=== PATIENT | male | born 1955 | race Caucasian/White ===

== ENCOUNTER 2018-08-22 21:47 | Inpatient (IN) | payer MEDICAID, MEDICARE ==
[2018-08-22 21:48] VITALS: BMI 20.1
[2018-08-22 22:55] LABS: BASO # 0.04 K/mm3 (0.0-2.0); BASO % 0.3 % (0.0-3.0); EOS # 0.5 (0.0-0.7); EOS % 3.9 % (1.5-5.0); HEMOGLOBIN 11.7 g/dL (14.0-18.0); LYMPH # 2.1 (1.2-3.4); LYMPH % 17.7 % (22.0-35.0); MEAN CELL VOLUME 85.1 fl (80.0-105.0); MEAN CORPUSCULAR HEMOGLOBIN 30.2 pg (25.0-35.0); MEAN CORPUSCULAR HGB CONC 35.5 g/dl (31.0-37.0); MEAN PLATELET VOLUME 10.3 fl (7.0-11.0); MONO # 1.7 (0.1-0.6); MONO % 14.7 % (1.0-6.0); RBC 3.88 10^6/uL (3.5-6.1); RED CELL DISTRIBUTION WIDTH 18.6 % (11.5-14.5); WHITE BLOOD COUNT 11.7 10^3/uL (4.5-11.0)
[2018-08-22 22:58] LABS: BLOOD UREA NITROGEN 14 mg/dL (7-21); GFR NON-AFRICAN AMERICAN > 60
[2018-08-22 23:01] LABS: INR 1.2; PARTIAL THROMBOPLASTIN TIME 35.2 Seconds (26.9-38.3); PROTHROMBIN TIME 13.3 SECONDS (9.4-12.5)
[2018-08-22 23:02] LABS: ALB/GLOB RATIO 0.9 (1.1-1.8); ALBUMIN 4.4 g/dL (3.0-4.8); ALT/SGPT 14 U/L (7-56); AST/SGOT 58 U/L (17-59)
--- NOTE | 2018-08-22 23:06 | ED PDOC ---
Arrival/HPI <Matthew Rosales - Last Filed: 08/22/18 23:44> - General Historian: Patient - History of Present Illness Narrative History of Present Illness (Text): 08/22/18 23:02 63-year-old male presents today with left-sided chest pain that started at 6 PM. Patient states he was feeling fine throughout the day and suddenly developed a sharp stabbing pain in the left side of the ribs. Patient states he took 3 aspirins and Tylenol with improvement in the pain. Patient states when the pain started it was associated with shortness of breath. Patient denies fevers or chills. No abdominal pain. No nausea vomiting diarrhea constipation. No dizziness or weakness. No trauma or injury. No other complaints <Mayda Crow - Last Filed: 08/23/18 00:25> - General Chief Complaint: Chest Pain Time Seen by Provider: 08/22/18 21:54 Past Medical History - Provider Review Nursing Documentation Reviewed: Yes - Travel History Have you recently traveled outside [place] w/in the past 3 mons?: No - Infectious Disease Hx of Infectious Diseases: None - Cardiac Hx Cardiac Disorders: No - Pulmonary Hx Respiratory Disorders: No - Neurological Hx Neurological Disorder: No Hx Alzheimer's Disease: No - HEENT Hx HEENT Disorder: Yes Hx Glaucoma: Yes - Renal Hx Renal Disorder: No - Endocrine/Metabolic Hx Endocrine Disorders: No - Hematological/Oncological Hx Blood Disorders: Yes Hx Anemia: Yes - Integumentary Hx Dermatological Disorder: No - Musculoskeletal/Rheumatological Hx Musculoskeletal Disorders: Yes Hx Arthritis: Yes - Gastrointestinal Hx Gastrointestinal Disorders: Yes (UMBILICAL HERNIA) - Genitourinary/Gynecological Hx Genitourinary Disorders: No - Psychiatric Hx Psychophysiologic Disorder: No Hx Substance Use: No - Surgical History Hx Eye Surgery: Yes (GLAUCOMA- LASER SX) Hx Orthopedic Surgery: Yes (left leg) Other/Comment: UMBILICAL HERNIA REPAIR - Anesthesia Hx Anesthesia: Yes Hx Anesthesia Reactions: No Hx Malignant Hyperthermia: No <Mayda Crow - Last Filed: 08/23/18 00:25> Family/Social History - Physician Review Nursing Documentation Reviewed: Yes Family/Social History: Unknown Family HX Smoking Status: Never Smoked Hx Alcohol Use: No Hx Substance Use: No <Mayda Crow - Last Filed: 08/23/18 00:25> Allergies/Home Meds <Matthew Rosales - Last Filed: 08/22/18 23:44> <Mayda Crow - Last Filed: 08/23/18 00:25> Allergies/Adverse Reactions: Allergies No Known Allergies Allergy (Verified 03/24/15 12:10) Home Medications: Home Meds Medication Instructions Recorded Confirmed Aspirin 81 mg PO DAILY 03/24/15 03/16/17 Folic Acid 1 mg PO DAILY 03/24/15 03/16/17 Review of Systems - Review of Systems Constitutional: absent: Fatigue, Fevers Respiratory: SOB. absent: Cough Cardiovascular: Chest Pain. absent: Palpitations Gastrointestinal: absent: Abdominal Pain, Constipation, Diarrhea, Nausea, Vomiting Genitourinary Male: absent: Dysuria, Frequency Musculoskeletal: absent: Arthralgias, Back Pain, Neck Pain Skin: absent: Rash, Pruritis Neurological: absent: Headache, Dizziness Psychiatric: absent: Anxiety, Depression, Suicidal Ideation <Cecilio Crowina T - Last Filed: 08/23/18 00:25> Physical Exam Vital Signs Temp Pulse Resp BP Pulse Ox 08/22/18 22:34 79 18 126/89 97 08/22/18 21:50 99 F 83 17 126/89 96 <Matthew Rosales - Last Filed: 08/22/18 23:44> Vital Signs Reviewed: Yes Vital Signs Temp Pulse Resp BP Pulse Ox 08/22/18 22:34 79 18 126/89 97 08/22/18 21:50 99 F 83 17 126/89 96 Temperature: Afebrile Blood Pressure: Normal Pulse: Regular Respiratory Rate: Normal Appearance: Positive for: Well-Appearing, Non-Toxic, Comfortable Pain Distress: None Mental Status: Positive for: Alert and Oriented X 3 - Systems Exam Head: Present: Atraumatic Mouth: Present: Moist Mucous Membranes Neck: Present: Normal Range of Motion, Trachea Midline Respiratory/Chest: Present: Clear to Auscultation, Good Air Exchange. No: Respiratory Distress, Accessory Muscle Use, Tender to Palpation Cardiovascular: Present: Regular Rate and Rhythm, Normal S1, S2. No: Murmurs Abdomen: No: Tenderness, Distention, Rebound, Guarding Back: Present: Normal Inspection Upper Extremity: Present: Normal Inspection Lower Extremity: Present: Normal Inspection. No: Edema Neurological: Present: GCS=15 Skin: Present: Warm, Dry, Normal Color. No: Rashes Psychiatric: Present: Alert, Oriented x 3 <AllisondaMayda T - Last Filed: 08/23/18 00:25> Medical Decision Making - Lab Interpretations Lab Results: PT 13.3 SECONDS (9.4-12.5) H 08/22/18 22:30 INR 1.20 08/22/18 22:30 APTT 35.2 Seconds (26.9-38.3) 08/22/18 22:30 Troponin I < 0.01 ng/mL 08/22/18 22:30 NT-Pro-B Natriuret Pep 95.8 pg/mL (0-450) 08/22/18 22:30 Total Bilirubin 3.4 mg/dL (0.2-1.3) H 08/22/18 22:30 AST 58 U/L (17-59) 08/22/18 22:30 ALT 14 U/L (7-56) 08/22/18 22:30 Alkaline Phosphatase 81 U/L (38-126) 08/22/18 22:30 Total Protein 9.1 g/dL (5.8-8.3) H 08/22/18 22:30 Albumin 4.4 g/dL (3.0-4.8) 08/22/18 22:30 Globulin 4.7 gm/dL 08/22/18 22:30 Albumin/Globulin Ratio 0.9 (1.1-1.8) L 08/22/18 22:30 - RAD Interpretation Radiology Orders: 08/22/18 22:14 CHEST PORTABLE [RAD] Stat <Matthew Rosales - Last Filed: 08/22/18 23:44> ED Course and Treatment: 08/22/18 23:06 63-year-old male with left-sided chest pain started at 6 PM Pt with chest pain ; vitals stable. cbc; wnl cmp; wnl trop: wnl BNP wnl ekg; normal sinus rhythm at 83 bpm normal axis no ST elevations QTC 413 cxr: wnl pt took 3 asa at home. pt reassessment; pt resting comfortably; no distress. vitals stable. all results discussed with patient and family in depth. case discussed with Dr. Alvares will Admit observational status to Tele for chest pain r/o acs. she is requesting serial troponins. 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 DIVINE has examined the patient and agrees with the treatment plan. <Matthew Rosales - Last Filed: 08/22/18 23:44> Disposition/Present on Arrival <Matthew Rosales - Last Filed: 08/22/18 23:44> - Present on Arrival Any Indicators Present on Arrival: No History of DVT/PE: No History of Uncontrolled Diabetes: No Urinary Catheter: No History of Decub. Ulcer: No History Surgical Site Infection Following: None - Disposition Have Diagnosis and Disposition been Completed?: Yes Disposition Time: 00:00 Patient Plan: Observation <Mayda Crow - Last Filed: 08/23/18 00:25> - Disposition Diagnosis: Chest pain Disposition: HOSPITALIZED Patient Problems: Current Active Problems Problem Status Onset Chest pain Acute Condition: FAIR
[2018-08-22 23:08] LABS: B-TYPE NATRIURETIC PEPTIDE 95.8 pg/mL (0-450)
[2018-08-22 23:11] LABS: TROPONIN I < 0.01 ng/mL
[2018-08-23 05:35] LABS: PH,URINE 6.5 (4.7-8.0); URINE BILIRUBIN NEGATIVE (NEGATIVE); URINE BLOOD NEGATIVE (NEGATIVE); URINE GLUCOSE (UA) NEGATIVE (NEGATIVE); URINE LEUKOCYTE ESTERASE NEGATIVE Leu/uL (NEGATIVE); URINE PROTEIN NEGATIVE mg/dL (<30 mg/dL)
[2018-08-23 05:37] LABS: URINE APPEARANCE CLEAR (CLEAR); URINE COLOR YELLOW (YELLOW)
--- NOTE | 2018-08-23 09:45 | RAD ---
Date of service: 08/22/2018 HISTORY: cp COMPARISON: No prior. TECHNIQUE: 1 view obtained. FINDINGS: LUNGS: No active pulmonary disease. PLEURA: No significant pleural effusion identified, no pneumothorax apparent. CARDIOVASCULAR: No aortic atherosclerotic calcification present. Mild aortic tortuosity Normal cardiac size. No pulmonary vascular congestion. OSSEOUS STRUCTURES: No significant abnormalities. VISUALIZED UPPER ABDOMEN: Normal. OTHER FINDINGS: None. IMPRESSION: No active disease.
[2018-08-23 11:21] LABS: HEMOGLOBIN 11.7 g/dL (14.0-18.0)
[2018-08-23 11:35] LABS: TOTAL IRON BINDING CAPACITY 275 ug/dL (261-462)
[2018-08-23 11:37] LABS: TROPONIN I < 0.01 ng/mL
[2018-08-23 11:52] LABS: % IRON SATURATION 12 % (20-55); IRON 33 ug/dL (45-180)
--- NOTE | 2018-08-23 15:14 | CARD ---
APPROVED REPORT Date of service: 08/22/2018 EKG Measurement Heart [id number] [place] [id number] [id number] <Conclusion> Normal sinus rhythm Normal ECG
--- NOTE | 2018-08-23 15:29 | US ---
Date of service: 08/23/2018 HISTORY: r/o gallstones COMPARISON: None. TECHNIQUE: Sonographic evaluation of the abdomen. FINDINGS: LIVER: Measures 13.9 x 10.05 x 18.48 cm. Normal echogenicity of the liver parenchyma. No mass. No intrahepatic bile duct dilatation. GALLBLADDER: Small gallstones COMMON BILE DUCT: Measures 5.7 mm. No stones. No dilatation. PANCREAS: Unremarkable as visualized. No mass. No ductal dilatation. RIGHT KIDNEY: Measures 10.02 x 5.08 x 4.85cm. Normal echogenicity. No calculus, mass, or hydronephrosis. LEFT KIDNEY: Measures 10.75 x 4.52 x 4.69cm. Normal echogenicity. No calculus, mass, or hydronephrosis. SPLEEN: Not visualized AORTA: No aneurysmal dilatation. IVC: Unremarkable. OTHER FINDINGS: None. IMPRESSION: Small gallstones. No evidence of cholecystitis
--- NOTE | 2018-08-23 17:01 | CARD ---
APPROVED REPORT Date of service: 08/23/2018 EXAM: Two-dimensional and M-mode echocardiogram with Doppler and color Doppler. INDICATION Chest Pain 2D DIMENSIONS Left Atrium (2D)3.8 (1.6-4.0cm)IVSd1.2 (0.7-1.1cm) LVDd5.8 (3.9-5.9cm)PWd1.2 (0.7-1.1cm) LVDs4.0 (2.5-4.0cm)FS (%) 31.5 % LVEF (%)58.6 (>50%) M-Mode DIMENSIONS Aortic Root4.00 (2.2-3.7cm)Aortic Cusp Exc.2.40 (1.5-2.0cm) Aortic Valve AoV Peak Aglnjppp996.0cm/Grey Peak GR.8mmHg Mitral Valve MV E Kpnhfbwd79.5cm/sMV A Pqjkghkz80.5cm/sE/A ratio0.8 TDI E/Lateral E'0.0E/Medial E'0.0 Tricuspid Valve TR Peak Dxxbdmjo830mx/sRAP [id number] Peak Gr.24mmHg [id number] LEFT VENTRICLE The left ventricle is normal size. There is mild concentric left ventricular hypertrophy. The left ventricular function is normal. The left ventricular ejection fraction is within the normal range. There is normal LV segmental wall motion. RIGHT VENTRICLE The right ventricle is normal size. The right ventricular systolic function is normal. ATRIA The left atrium size is normal. The right atrium size is normal. The interatrial septum is intact with no evidence for an atrial septal defect. AORTIC VALVE The aortic valve is normal in structure. There is moderate aortic regurgitation. There is no aortic valvular stenosis. MITRAL VALVE The mitral valve is normal in structure. There is no mitral valve regurgitation noted. TRICUSPID VALVE The tricuspid valve is normal in structure. There is mild tricuspid regurgitation. PULMONIC VALVE The pulmonary valve is normal in structure. There is mild pulmonic valvular regurgitation. GREAT VESSELS The aortic root is normal in size. The IVC is normal in size and collapses >50% with inspiration. PERICARDIAL EFFUSION There is no pleural effusion. There is no pericardial effusion. <Conclusion> Normal chamber size. Normal LV size and systolic function. Mild concentric LVH. Moderate aortic insufficiency. Mild tricuspid regurgitation. Mild pulmonic insufficiency.
[2018-08-23 18:08] LABS: FOLATE 17.3 ng/mL
--- NOTE | 2018-08-23 21:33 | HP ---
DATE OF EXAM: 08/23/2018 HISTORY OF PRESENT ILLNESS: This 63-year-old male who was examined at his bedside on the morning of 08/23/2018. He presented to [facility] earlier today with left-sided chest pain. He was shopping last evening at a local grocery store when he experienced sharp stabbing left-sided chest pain. He initially took three aspirin and Tylenol with improvement in pain and also stated at the time of the discomfort he had shortness of breath, the pain lasted approximately 1 hour and he came to [facility] for further evaluation of the above. On questioning this patient, he is on medical disability for a right leg injury that occurred at work years ago. He states he is on no chronic medication, but does have a history of glaucoma, degenerative arthritis, and denied any previous surgery including hernia repair, tonsillectomy or appendectomy. OUTPATIENT MEDICATIONS: Include baby aspirin and folic acid. ALLERGIES: THE PATIENT DENIED ANY ALLERGIES TO MEDICATION. SOCIAL HISTORY: He states he is a nondrinker, nonsmoker, and non IV drug misuser. FAMILY HISTORY: Both parents are alive and well. The patient denies any knowledge of unstable angina in his past and states he has never had an echocardiogram or stress test. REVIEW OF SYSTEMS: CONSTITUTIONAL REVIEW: No fever. No chills. HEAD: No headache. No seizures. EYES: No change in visual acuity. EARS: No hearing loss. THROAT: No swallowing difficulty. NECK: No stiffness. CARDIAC REVIEW: As per HPI. PULMONARY: No cough. No hemoptysis. GASTROINTESTINAL: No hematemesis. No melena. GENITOURINARY: No dysuria. SKIN: No rash. VASCULAR: No claudication. PSYCHOLOGICAL: No anxiety. NEUROLOGICAL: No knowledge of stroke. PHYSICAL EXAMINATION: VITAL SIGNS: He is in a normal sinus rhythm on monitoring specialist. Last temperature 99, respirations 20, pulse 75, and blood pressure 129/63. HEENT: Head: Normocephalic and atraumatic. Eyes: No icterus. Ears: Clear. Throat: Noninjected. NECK: Supple. HEART: Regular S1 and S2. LUNGS: Clear. ABDOMEN: Soft. No rebound. No guarding. No tenderness. EXTREMITIES: No edema. SKIN: Without rash. NEUROLOGICAL: Intact. PSYCHOLOGICAL: Alert. VASCULAR: Legs warm to touch. LABORATORY DATA: White count 11,700, hemoglobin 11.7, hematocrit 33, and platelets 156,000. PT/INR 1.20 and PTT 35.2. Sodium 138, K 4, chloride 106, bicarb 26, BUN 14, creatinine 1.2, random blood sugar 97, magnesium 1.8, and bilirubin 3.4. AST 58, ALT 14, and alk phos 81. Urinalysis 4+ urobilinogen. Serology; influenza A and B negative. Chest x-ray was reviewed, it shows no active pulmonary disease, no infiltrate, no pneumonia, no CHF, and no pneumothorax. EKG reportedly showed normal sinus rhythm with nonspecific ST-T wave changes. IMPRESSION: This is a 63-year-old male with sharp stabbing chest pain, rule out unstable angina, also with comorbidities of mild anemia, elevated bilirubin, rule out gallstones, and rule out atypical chest pain secondary to gallstones. PLAN: My plan at present as discussed with the patient in detail at bedside will be to obtain vitamin B12 levels. A total bilirubin and direct bilirubin level, iron, TIBC, folic acid, and ferritin levels as well as a repeat troponin level. The hemoglobin and hematocrit had been ordered stat as well. He is ordered to have an echocardiogram, a heart healthy diet, Lexiscan stress test, and a gallbladder ultrasound. Based on the above additional diagnostic workup and testing will be entertained. Greater than 75 minutes were spent in the care management, review of ER records, labs, outlying of orders and discussion of this patient with himself and nursing. All questions were answered. Lizzy Alvares MD
--- NOTE | 2018-08-23 23:29 | CP.PCM.PN ---
Subjective - Date & Time of Evaluation Date of Evaluation: 08/23/18 Time of Evaluation: 23:29 - Subjective Subjective: Patient was seen because I was asked to co-sign an order for tylenol which was ordered for temperature of 102.3*F As per nurse his pulse ox was 88% on RA, it went upt 95%-96% when she put him on oxygen at 2L/min by nasal canula. Patient has no complaints now. Denies cough, phlegm, any skin/wound infection, urinary symptoms. Medical record was reviewed. This 63 year old male is admitted with left sided chest pain , r/o unstable angina, leukocytosis, elevated bilirubin level, mild anemia. Has PMH of DJD, glaucoma. Objective - Vital Signs/Intake and Output Vital Signs (last 24 hours): Temp Pulse Resp BP Pulse Ox 97.6 F 93 H 20 121/77 98 08/23/18 17:49 08/23/18 18:00 08/23/18 17:49 08/23/18 17:49 08/23/18 00:08 Intake and Output: 08/23/18 08/24/18 18:59 06:59 Intake Total 660 Output Total 400 Balance 260 - Medications Medications: Current Medications Aspirin (Ecotrin) 81 mg PO DAILY TA Folic Acid (Folic Acid) 1 mg PO DAILY TA - Labs Labs: 08/23/18 11:00 08/22/18 22:30 PT 13.3 SECONDS (9.4-12.5) H 08/22/18 22:30 INR 1.20 08/22/18 22:30 APTT 35.2 Seconds (26.9-38.3) 08/22/18 22:30 - Constitutional Appears: Well, No Acute Distress - Head Exam Head Exam: ATRAUMATIC, NORMAL INSPECTION, NORMOCEPHALIC - Eye Exam Eye Exam: Normal appearance - ENT Exam ENT Exam: Normal External Ear Exam - Neck Exam Neck Exam: Normal Inspection - Respiratory Exam Respiratory Exam: NORMAL BREATHING PATTERN - Cardiovascular Exam Cardiovascular Exam: absent: JVD - GI/Abdominal Exam GI & Abdominal Exam: absent: Distended - Rectal Exam Rectal Exam: Deferred - Exam Additional comments: Deferred. - Extremities Exam Extremities Exam: Normal Inspection - Back Exam Back Exam: NORMAL INSPECTION - Neurological Exam Neurological Exam: Alert, Awake, Oriented x3 - Psychiatric Exam Psychiatric exam: Normal Affect, Normal Mood - Skin Skin Exam: Normal Color Assessment and Plan - Assessment and Plan (Free Text) Assessment: Chest pain. Fever. R/O PNA. Sepsis. Leukocytosis. Anemia. DJD. Hx glaucoma. Plan: Tylenol 650 mg PO Q4H prn Temp > 100.4*F. CBC with Diff. Blood culture x 2 UA.C&S. CXR portable stat----> No definitive infiltrate or any other pathology noted. Sputum for gram stain and C&S. Rocephin 1 gm IV x 1. ID consult at discretion of PMD. Continue present management as per PMD.
[2018-08-24] MEDS ORDERED: cefTRIAXone 1 gm 1 GM/100 ML BAG IVPB STA (00:17)
[2018-08-24 01:24] LABS: BASO # 0.02 K/mm3 (0.0-2.0); BASO % 0.1 % (0.0-3.0); EOS % 0.1 % (1.5-5.0); HEMOGLOBIN 11.6 g/dL (14.0-18.0); LYMPH # 1.1 (1.2-3.4); LYMPH % 7.5 % (22.0-35.0); MEAN CORPUSCULAR HEMOGLOBIN 30.4 pg (25.0-35.0); MEAN CORPUSCULAR HGB CONC 35.8 g/dl (31.0-37.0); MEAN PLATELET VOLUME 10.1 fl (7.0-11.0); MONO # 2.1 (0.1-0.6); MONO % 14.3 % (1.0-6.0); RBC 3.81 10^6/uL (3.5-6.1); RED CELL DISTRIBUTION WIDTH 18.4 % (11.5-14.5); WHITE BLOOD COUNT 14.3 10^3/uL (4.5-11.0)
[2018-08-24 07:36] LABS: ALB/GLOB RATIO 0.9 (1.1-1.8); ALBUMIN 3.7 g/dL (3.0-4.8); ALT/SGPT 16 U/L (7-56); AST/SGOT 46 U/L (17-59); BLOOD UREA NITROGEN 17 mg/dL (7-21); CALCIUM 8.6 mg/dL (8.4-10.5); GFR NON-AFRICAN AMERICAN 56
[2018-08-24 07:41] LABS: BASO # 0.02 K/mm3 (0.0-2.0); BASO % 0.1 % (0.0-3.0); EOS % 0.1 % (1.5-5.0); HEMOGLOBIN 11.3 g/dL (14.0-18.0); LYMPH # 1.2 (1.2-3.4); MEAN CELL VOLUME 84.9 fl (80.0-105.0); MEAN CORPUSCULAR HEMOGLOBIN 30.5 pg (25.0-35.0); MEAN PLATELET VOLUME 9.9 fl (7.0-11.0); MONO % 18.4 % (1.0-6.0); RBC 3.7 10^6/uL (3.5-6.1); RED CELL DISTRIBUTION WIDTH 18.3 % (11.5-14.5); WHITE BLOOD COUNT 16.3 10^3/uL (4.5-11.0)
[2018-08-24 07:46] LABS: TROPONIN I 0.01 ng/mL
--- NOTE | 2018-08-24 08:33 | RAD ---
Date of service: 08/24/2018 HISTORY: fever COMPARISON: 08/22/2018 TECHNIQUE: 1 view obtained. FINDINGS: LUNGS: No active pulmonary disease. PLEURA: No significant pleural effusion identified, no pneumothorax apparent. CARDIOVASCULAR: No aortic atherosclerotic calcification present. Aortic tortuosity Mild cardiomegaly no pulmonary vascular congestion. OSSEOUS STRUCTURES: No significant abnormalities. VISUALIZED UPPER ABDOMEN: Normal. OTHER FINDINGS: None. IMPRESSION: No active disease.
[2018-08-24] MEDS: cefTRIAXone 1 gm 1 GM/100 ML BAG IVPB SCH (10:10)
--- NOTE | 2018-08-24 10:38 | CARD ---
APPROVED REPORT Date of service: 08/24/2018 EKG Measurement Heart [id number] [place] 156P29 [id number] <Conclusion> Sinus tachycardia Incomplete right bundle branch block Borderline ECG
--- NOTE | 2018-08-24 12:17 | PN ---
DATE: 08/24/2018 SUBJECTIVE: This 63-year-old male was examined at his bedside on the morning of 08/24/2018. Present for his cardiac unit evaluation was nurse, Lacy Johnson, registered nurse. The patient was admitted with chest pain. Last evening and this morning, he had a temperature spike of 101.4. He underwent a stat chest x-ray that showed no acute infiltrate and blood cultures were sent. I have requested that the patient be cooperative and give a urine sample for culture as well. He denies any chest pain at rest. There was no productive cough and he denies any nausea, vomiting or diarrhea. 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 HEENT: Head: Normocephalic, atraumatic. Eyes: No icterus. Ears: Clear. Throat: Noninjected. NECK: Supple. HEART: S1 and S2. LUNGS: Clear. ABDOMEN: Soft. EXTREMITIES: No edema. SKIN: Without rash. NEUROLOGICAL: Intact. PSYCHOLOGICAL: Alert. VASCULAR: Legs warm to touch. LABORATORY DATA: White count 16,300, hemoglobin 11.3, hematocrit 31.4, platelets 185,000. Sodium 141, K 3.7, chloride 108, bicarb 26, BUN 17, creatinine 1.3, random blood sugar 120. Calcium 8.6, phosphorous 3.0, magnesium 1.8. Iron 33, TIBC 275 and percent saturation 12. Total bilirubin 4.8, direct bilirubin zero, AST 46, ALT 16, alk phos 72. Vitamin B12 level is 315 with a folic acid level of 17.3. Troponin was less than 0.01. Initial urinalysis showed no bacteria. Influenza A and B serologies are negative. Chest x-ray was reviewed. It shows no evidence of infiltrate, CHF, pneumonia or pneumothorax. Abdominal ultrasound was reviewed and is consistent with asymptomatic gallstones. IMPRESSION: This is a 63-year-old male admitted with anginal chest pain now with course complicated by fever, elevated indirect bilirubin level and iron-deficiency anemia. As discussed with the patient and nurse, Lacy Johnson, he will be scheduled for CBC for the next 2 days, blood and urine cultures have been sent. He will continue on IV Rocephin 1 g every 24 hours, Tylenol 650 p.o. every 4 hours p.r.n. fever, heart-healthy diet. Consultations with Dr. Darrion Ansari from Infectious Disease has been requested as well as Dr. Swapna Velasquez from GI. Greater than 60 minutes were spent in the care management, review of labs, orders x-rays and discussion of this patient with GI, Infectious Disease, Nursing and the patient. All questions were answered. Lizzy Alvares MD MTDD
[2018-08-24 14:19] LABS: URINE BILIRUBIN NEGATIVE (NEGATIVE); URINE BLOOD NEGATIVE (NEGATIVE); URINE GLUCOSE (UA) NEGATIVE (NEGATIVE); URINE LEUKOCYTE ESTERASE NEGATIVE Leu/uL (NEGATIVE); URINE PROTEIN NEGATIVE mg/dL (<30 mg/dL)
[2018-08-24 14:26] LABS: URINE APPEARANCE CLEAR (CLEAR); URINE COLOR YELLOW (YELLOW)
--- NOTE | 2018-08-24 18:19 | CP.PCM.CON ---
History of Present Illness - History of Present Illness History of Present Illness: Infectious Disease Consultation: August 24, 2018 63 yo AA male with initial presentation for left sided stabbing chest pain while shopping the day prior to admission. The patient has a PMHx of Glaucoma and De generative Arthritis. He is on medical disability for a right leg injury that occurred at work several years ago. ID called for fevers up to 102.3 F in the past 24 hours. The patient had clear Chest X-rays, unremarkable urinalysis, and mild-mod leukocytosis. Bush cultures taken when fever up to 102.3 F. Occassional spikes of fever throughout the day. PMHx: Glaucoma, Degenerative Arthritis, right leg injury. PSHx: Umbilical hernia repair, leg surgery, Glaucoma surgery Allergies: NKDA Social Hx: No tobacco, EtOH, or illicit drug use. Active Medications Acetaminophen (Tylenol 325mg Tab) 650 mg PO Q4H PRN PRN Reason: Temp>100.4*F Last Admin: 08/24/18 15:41 Dose: 650 mg Aspirin (Ecotrin) 81 mg PO DAILY [facility] Last Admin: 08/24/18 09:10 Dose: 81 mg Folic Acid (Folic Acid) 1 mg PO DAILY [facility] Last Admin: 08/24/18 09:10 Dose: 1 mg Ceftriaxone Sodium (Rocephin 1 Gram Ivpb) 1 gm in 100 mls @ 100 mls/hr IVPB DAILY [facility]; Protocol Last Admin: 08/24/18 10:10 Dose: Not Given Family Hx: none given ROS: fevers, chest pain, SOB No syncope, loss of consciousness, abdominal pain, melena, hematuria, hematemesis, hematochezia, depression, anxiety. Past Patient History - Infectious Disease Hx of Infectious Diseases: None - Past Medical History & Family History Past Medical History?: Yes - Past Social History Smoking Status: Never Smoked - CARDIAC Hx Cardiac Disorders: No - PULMONARY Hx Respiratory Disorders: No - NEUROLOGICAL Hx Neurological Disorder: No Hx Alzheimer's Disease: No - HEENT Hx HEENT Problems: Yes Hx Glaucoma: Yes - RENAL Hx Chronic Kidney Disease: No - ENDOCRINE/METABOLIC Hx Endocrine Disorders: No - HEMATOLOGICAL/ONCOLOGICAL Hx Blood Disorders: Yes Hx Anemia: Yes - INTEGUMENTARY Hx Dermatological Problems: No - MUSCULOSKELETAL/RHEUMATOLOGICAL Hx Musculoskeletal Disorders: Yes Hx Arthritis: Yes - GASTROINTESTINAL Hx Gastrointestinal Disorders: Yes (UMBILICAL HERNIA) - GENITOURINARY/GYNECOLOGICAL Hx Genitourinary Disorders: No - PSYCHIATRIC Hx Psychophysiologic Disorder: No Hx Substance Use: No - SURGICAL HISTORY Hx Eye Surgery: Yes (GLAUCOMA- LASER SX) Hx Orthopedic Surgery: Yes (left leg) Other/Comment: UMBILICAL HERNIA REPAIR - ANESTHESIA Hx Anesthesia: Yes Hx Anesthesia Reactions: No Hx Malignant Hyperthermia: No Meds Allergies/Adverse Reactions: Allergies Allergy/AdvReac Type Severity Reaction Status Date / Time No Known Allergies Allergy Verified 03/24/15 12:10 - Medications Medications: Current Medications Acetaminophen (Tylenol 325mg Tab) 650 mg PO Q4H PRN PRN Reason: Temp>100.4*F Last Admin: 08/24/18 15:41 Dose: 650 mg Aspirin (Ecotrin) 81 mg PO DAILY [facility] Last Admin: 08/24/18 09:10 Dose: 81 mg Folic Acid (Folic Acid) 1 mg PO DAILY [facility] Last Admin: 08/24/18 09:10 Dose: 1 mg Ceftriaxone Sodium (Rocephin 1 Gram Ivpb) 1 gm in 100 mls @ 100 mls/hr IVPB DAILY [facility]; Protocol Last Admin: 08/24/18 10:10 Dose: Not Given Physical Exam - Constitutional Appears: Non-toxic, No Acute Distress, Chronically Ill - Head Exam Head Exam: ATRAUMATIC, NORMOCEPHALIC - Eye Exam Eye Exam: EOMI, PERRL Pupil Exam: NORMAL ACCOMODATION, PERRL - ENT Exam ENT Exam: Mucous Membranes Moist, Normal External Ear Exam, TM's Normal Bilat erally - Neck Exam Neck exam: Positive for: Full Rom, Normal Inspection - Respiratory Exam Respiratory Exam: Clear to Auscultation Bilateral, NORMAL BREATHING PATTERN. absent: Rales, Rhonchi, Wheezes - Cardiovascular Exam Cardiovascular Exam: REGULAR RHYTHM, RRR, +S1, +S2 - GI/Abdominal Exam GI & Abdominal Exam: Distended, Normal Bowel Sounds, Soft. absent: Tenderness - Extremities Exam Extremities exam: Positive for: full ROM, normal inspection - Neurological Exam Neurological exam: Alert, CN II-XII Intact, Oriented x3 - Psychiatric Exam Psychiatric exam: Normal Affect, Normal Mood - Skin Skin Exam: Intact, Normal Color Results - Vital Signs Recent Vital Signs: Last Vital Signs Temp 98.1 F 08/24/18 12:00 Pulse 101 H 08/24/18 17:40 Resp 20 08/24/18 12:00 BP 121/79 08/24/18 12:00 Pulse Ox 95 08/24/18 08:00 - Labs Result Diagrams: 08/24/18 07:30 08/24/18 07:00 Labs: Laboratory Results - last 24 hr 08/23/18 08/24/18 08/24/18 11:00 00:50 07:00 WBC 14.3 H D RBC 3.81 Hgb 11.6 L Hct 32.4 L MCV 85.0 MCH 30.4 MCHC 35.8 RDW 18.4 H Plt Count 157 MPV 10.1 Neut % (Auto) 78.0 H Lymph % (Auto) 7.5 L [place] % (Auto) 14.3 H Eos % (Auto) 0.1 L Baso % (Auto) 0.1 Lymph # (Auto) 1.1 L [place] # (Auto) 2.1 H Eos # (Auto) 0.0 Baso # (Auto) 0.02 Absolute Neuts (auto) 11.16 H Sodium 141 Potassium 3.7 Chloride 108 H Carbon Dioxide 26 Anion Gap 11 BUN 17 Creatinine 1.3 Est GFR ( Amer) > 60 Est GFR (Non-Af Amer) 56 Random Glucose 120 H Calcium 8.6 Phosphorus 3.0 Magnesium 1.8 Total Bilirubin 4.8 H AST 46 ALT 16 Alkaline Phosphatase 72 Troponin I 0.01 Total Protein 8.0 Albumin 3.7 Globulin 4.3 Albumin/Globulin Ratio 0.9 L Vitamin B12 315 Folate 17.3 Urine Color Urine Appearance Urine pH Ur Specific [place] Urine Protein Urine Glucose (UA) Urine Ketones Urine Blood Urine Nitrate Urine Bilirubin Urine Urobilinogen Ur Leukocyte Esterase 08/24/18 08/24/18 07:30 14:00 WBC 16.3 H RBC 3.70 Hgb 11.3 L Hct 31.4 L MCV 84.9 MCH 30.5 MCHC 36.0 RDW 18.3 H Plt Count 185 MPV 9.9 Neut % (Auto) 74.4 H Lymph % (Auto) 7.0 L [place] % (Auto) 18.4 H Eos % (Auto) 0.1 L Baso % (Auto) 0.1 Lymph # (Auto) 1.2 [place] # (Auto) 3.0 H Eos # (Auto) 0.0 Baso # (Auto) 0.02 Absolute Neuts (auto) 12.15 H Sodium Potassium Chloride Carbon Dioxide Anion Gap BUN Creatinine Est GFR ( Amer) Est GFR (Non-Af Amer) Random Glucose Calcium Phosphorus Magnesium Total Bilirubin AST ALT Alkaline Phosphatase Troponin I Total Protein Albumin Globulin Albumin/Globulin Ratio Vitamin B12 Folate Urine Color Yellow Urine Appearance Clear Urine pH 6.0 Ur Specific [place] <= 1.005 Urine Protein Negative Urine Glucose (UA) Negative Urine Ketones Negative Urine Blood Negative Urine Nitrate Negative Urine Bilirubin Negative Urine Urobilinogen 4.0 H Ur Leukocyte Esterase Negative Assessment & Plan - Assessment and Plan (Free Text) Assessment: 63 yo AA male with presentation for fevers up to 102.3 F in the past 24 hours initially presenting for unstable angina. Urinalysis not indicative for UTI. Chest X-rays negative. Some renal insufficiency. Bilirubin counts are elevated but has had similar values in two distant hospitalizations. LDH elevated. Leukocytosis. Influenza testing negative. On Rocephin at this time. Bush cultures pending. Continue with Rocephin for now. Monitor temperature trend. Patient denying any additional complaints at this time. Obtain abdominal X-ray. Patient without bowel movements for the past 2 days. Abdomen distended. Thank you for allowing me to participate in the care of the patient, we will follow with you.
--- NOTE | 2018-08-24 19:41 | CP.PCM.CON ---
<Oskar Cheema - Last Filed: 08/24/18 19:36> History of Present Illness - History of Present Illness History of Present Illness: Oskar Cheema, PGY-1, GI Consult Note for Dr. Velasquez 63 year old male with past medical history of glaucoma and arthritis presents with left rib pain starting 2-3 days ago. GI was consulted for anemia and possible Gilbert's syndrome. 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 He reports tylenol improved the pain and that after he was given tylenol at the hospital, his pain was relieved. He denies any abdominal pain, nausea, vomiting, constipation, diarrhea, dysuria, hematuria, fevers. In addition, he denies any travel history or change in diet. PMH: as stated above PSH: umbilical hernia repair FMHx: denies any significant GI malignancy SHx: denies any tobacco, alcohol, or recreational drug use Allergies: NKDA PMD: Dr. Alvares Review of Systems - Review of Systems Review of Systems: except as mentioned in HPI Past Patient History - Infectious Disease Hx of Infectious Diseases: None - Past Medical History & Family History Past Medical History?: Yes - Past Social History Smoking Status: Never Smoked - CARDIAC Hx Cardiac Disorders: No - PULMONARY Hx Respiratory Disorders: No - NEUROLOGICAL Hx Neurological Disorder: No Hx Alzheimer's Disease: No - HEENT Hx HEENT Problems: Yes Hx Glaucoma: Yes - RENAL Hx Chronic Kidney Disease: No - ENDOCRINE/METABOLIC Hx Endocrine Disorders: No - HEMATOLOGICAL/ONCOLOGICAL Hx Blood Disorders: Yes Hx Anemia: Yes - INTEGUMENTARY Hx Dermatological Problems: No - MUSCULOSKELETAL/RHEUMATOLOGICAL Hx Musculoskeletal Disorders: Yes Hx Arthritis: Yes - GASTROINTESTINAL Hx Gastrointestinal Disorders: Yes (UMBILICAL HERNIA) - GENITOURINARY/GYNECOLOGICAL Hx Genitourinary Disorders: No - PSYCHIATRIC Hx Psychophysiologic Disorder: No Hx Substance Use: No - SURGICAL HISTORY Hx Eye Surgery: Yes (GLAUCOMA- LASER SX) Hx Orthopedic Surgery: Yes (left leg) Other/Comment: UMBILICAL HERNIA REPAIR - ANESTHESIA Hx Anesthesia: Yes Hx Anesthesia Reactions: No Hx Malignant Hyperthermia: No Meds Allergies/Adverse Reactions: Allergies Allergy/AdvReac Type Severity Reaction Status Date / Time No Known Allergies Allergy Verified 03/24/15 12:10 - Medications Medications: Current Medications Acetaminophen (Tylenol 325mg Tab) 650 mg PO Q4H PRN PRN Reason: Temp>100.4*F Last Admin: 08/24/18 15:41 Dose: 650 mg Aspirin (Ecotrin) 81 mg PO DAILY [facility] Last Admin: 08/24/18 09:10 Dose: 81 mg Folic Acid (Folic Acid) 1 mg PO DAILY [facility] Last Admin: 08/24/18 09:10 Dose: 1 mg Ceftriaxone Sodium (Rocephin 1 Gram Ivpb) 1 gm in 100 mls @ 100 mls/hr IVPB DAILY [facility]; Protocol Last Admin: 08/24/18 10:10 Dose: Not Given Physical Exam - Constitutional Appears: Well, Non-toxic, No Acute Distress - Head Exam Head Exam: ATRAUMATIC, NORMAL INSPECTION, NORMOCEPHALIC - Eye Exam Eye Exam: EOMI, PERRL - ENT Exam ENT Exam: Mucous Membranes Moist - Respiratory Exam Respiratory Exam: Clear to Auscultation Bilateral, NORMAL BREATHING PATTERN - Cardiovascular Exam Cardiovascular Exam: REGULAR RHYTHM, RRR, +S1, +S2 - GI/Abdominal Exam GI & Abdominal Exam: Normal Bowel Sounds, Soft. absent: Tenderness - Extremities Exam Extremities exam: Positive for: full ROM, normal inspection. Negative for: pedal edema - Neurological Exam Neurological exam: Alert, CN II-XII Intact, Oriented x3 - Skin Skin Exam: Dry, Intact, Normal Color Results - Vital Signs Recent Vital Signs: Last Vital Signs Temp 101.5 F H 08/24/18 18:00 Pulse 99 H 08/24/18 18:00 Resp 20 08/24/18 18:00 BP 125/80 08/24/18 18:00 Pulse Ox 95 08/24/18 08:00 - Labs Result Diagrams: 08/24/18 07:30 08/24/18 07:00 Labs: Laboratory Results - last 24 hr 08/24/18 08/24/18 08/24/18 00:50 07:00 07:30 WBC 14.3 H D 16.3 H RBC 3.81 3.70 Hgb 11.6 L 11.3 L Hct 32.4 L 31.4 L MCV 85.0 84.9 MCH 30.4 30.5 MCHC 35.8 36.0 RDW 18.4 H 18.3 H Plt Count 157 185 MPV 10.1 9.9 Neut % (Auto) 78.0 H 74.4 H Lymph % (Auto) 7.5 L 7.0 L [place] % (Auto) 14.3 H 18.4 H Eos % (Auto) 0.1 L 0.1 L Baso % (Auto) 0.1 0.1 Lymph # (Auto) 1.1 L 1.2 [place] # (Auto) 2.1 H 3.0 H Eos # (Auto) 0.0 0.0 Baso # (Auto) 0.02 0.02 Absolute Neuts (auto) 11.16 H 12.15 H Sodium 141 Potassium 3.7 Chloride 108 H Carbon Dioxide 26 Anion Gap 11 BUN 17 Creatinine 1.3 Est GFR ( Amer) > 60 Est GFR (Non-Af Amer) 56 Random Glucose 120 H Calcium 8.6 Phosphorus 3.0 Magnesium 1.8 Total Bilirubin 4.8 H AST 46 ALT 16 Alkaline Phosphatase 72 Troponin I 0.01 Total Protein 8.0 Albumin 3.7 Globulin 4.3 Albumin/Globulin Ratio 0.9 L Urine Color Urine Appearance Urine pH Ur Specific [place] Urine Protein Urine Glucose (UA) Urine Ketones Urine Blood Urine Nitrate Urine Bilirubin Urine Urobilinogen Ur Leukocyte Esterase 08/24/18 14:00 WBC RBC Hgb Hct MCV MCH MCHC RDW Plt Count MPV Neut % (Auto) Lymph % (Auto) [place] % (Auto) Eos % (Auto) Baso % (Auto) Lymph # (Auto) [place] # (Auto) Eos # (Auto) Baso # (Auto) Absolute Neuts (auto) Sodium Potassium Chloride Carbon Dioxide Anion Gap BUN Creatinine Est GFR ( Amer) Est GFR (Non-Af Amer) Random Glucose Calcium Phosphorus Magnesium Total Bilirubin AST ALT Alkaline Phosphatase Troponin I Total Protein Albumin Globulin Albumin/Globulin Ratio Urine Color Yellow Urine Appearance Clear Urine pH 6.0 Ur Specific [place] <= 1.005 Urine Protein Negative Urine Glucose (UA) Negative Urine Ketones Negative Urine Blood Negative Urine Nitrate Negative Urine Bilirubin Negative Urine Urobilinogen 4.0 H Ur Leukocyte Esterase Negative Assessment & Plan - Assessment and Plan (Free Text) Assessment: 63 year old male with past medical history of glaucoma and arthritis presents with left rib pain starting 2-3 days ago. GI was consulted for anemia and possible Gilbert's syndrome. #Anemia #Rule out Gilbert's Syndrome #Glaucoma #Arthritis Plan: -Patient has anemia with Hgb in the 11s -Iron studies show %transferrin saturation of 12, likely signifying iron deficiency anemia vs. chronic inflammatory state -Bilirubin is elevated at 4.8, which likely does not signify Gilbert's syndrome. -Direct bilirubin is 0. -LDH is elevated at 1125 -Will obtain haptoglobin and reticulocyte count for further evaluation of anemia. Patient plan discussed with Dr. Velasquez. - Date & Time Date: 08/24/18 Time: 19:41 <Swapna Velasquez V - Last Filed: 08/24/18 23:12> Meds - Medications Medications: Current Medications Acetaminophen (Tylenol 325mg Tab) 650 mg PO Q4H PRN PRN Reason: Temp>100.4*F Last Admin: 08/24/18 20:05 Dose: 650 mg Aspirin (Ecotrin) 81 mg PO DAILY [facility] Last Admin: 08/24/18 09:10 Dose: 81 mg Folic Acid (Folic Acid) 1 mg PO DAILY [facility] Last Admin: 08/24/18 09:10 Dose: 1 mg Ceftriaxone Sodium (Rocephin 1 Gram Ivpb) 1 gm in 100 mls @ 100 mls/hr IVPB DAILY [facility]; Protocol Last Admin: 08/24/18 10:10 Dose: Not Given Results - Vital Signs Recent Vital Signs: Last Vital Signs Temp 101.5 F H 08/24/18 18:00 Pulse 96 H 08/24/18 22:00 Resp 20 08/24/18 18:00 BP 125/80 08/24/18 18:00 Pulse Ox 95 08/24/18 08:00 - Labs Result Diagrams: 08/24/18 07:30 08/24/18 07:00 Labs: Laboratory Results - last 24 hr 08/24/18 08/24/18 08/24/18 00:50 07:00 07:30 WBC 14.3 H D 16.3 H RBC 3.81 3.70 Hgb 11.6 L 11.3 L Hct 32.4 L 31.4 L MCV 85.0 84.9 MCH 30.4 30.5 MCHC 35.8 36.0 RDW 18.4 H 18.3 H Plt Count 157 185 MPV 10.1 9.9 Neut % (Auto) 78.0 H 74.4 H Lymph % (Auto) 7.5 L 7.0 L [place] % (Auto) 14.3 H 18.4 H Eos % (Auto) 0.1 L 0.1 L Baso % (Auto) 0.1 0.1 Lymph # (Auto) 1.1 L 1.2 [place] # (Auto) 2.1 H 3.0 H Eos # (Auto) 0.0 0.0 Baso # (Auto) 0.02 0.02 Absolute Neuts (auto) 11.16 H 12.15 H Sodium 141 Potassium 3.7 Chloride 108 H Carbon Dioxide 26 Anion Gap 11 BUN 17 Creatinine 1.3 Est GFR ( Amer) > 60 Est GFR (Non-Af Amer) 56 Random Glucose 120 H Calcium 8.6 Phosphorus 3.0 Magnesium 1.8 Total Bilirubin 4.8 H Direct Bilirubin AST 46 ALT 16 Alkaline Phosphatase 72 Troponin I 0.01 Total Protein 8.0 Albumin 3.7 Globulin 4.3 Albumin/Globulin Ratio 0.9 L Urine Color Urine Appearance Urine pH Ur Specific [place] Urine Protein Urine Glucose (UA) Urine Ketones Urine Blood Urine Nitrate Urine Bilirubin Urine Urobilinogen Ur Leukocyte Esterase 08/24/18 08/24/18 07:30 14:00 WBC RBC Hgb Hct MCV MCH MCHC RDW Plt Count MPV Neut % (Auto) Lymph % (Auto) [place] % (Auto) Eos % (Auto) Baso % (Auto) Lymph # (Auto) [place] # (Auto) Eos # (Auto) Baso # (Auto) Absolute Neuts (auto) Sodium Potassium Chloride Carbon Dioxide Anion Gap BUN Creatinine Est GFR ( Amer) Est GFR (Non-Af Amer) Random Glucose Calcium Phosphorus Magnesium Total Bilirubin Direct Bilirubin 0.6 H AST ALT Alkaline Phosphatase Troponin I Total Protein Albumin Globulin Albumin/Globulin Ratio Urine Color Yellow Urine Appearance Clear Urine pH 6.0 Ur Specific [place] <= 1.005 Urine Protein Negative Urine Glucose (UA) Negative Urine Ketones Negative Urine Blood Negative Urine Nitrate Negative Urine Bilirubin Negative Urine Urobilinogen 4.0 H Ur Leukocyte Esterase Negative Attending/Attestation - Attestation I have personally seen and examined this patient.: Yes I have fully participated in the care of the patient.: Yes I have reviewed all pertinent clinical information: Yes Notes (Text): This patient was seen and evaluated here earlier along with the resident. This is an addendum to the GI progress report dictated by the resident. History of anemia patient had an endoscopy done 2017 which was reviewed. recommend EGD to further evaluate history of iron deficiency anemia. Close follow-up of the hemoglobin hematocrit and transfuse as needed. Patient is having elevated total bilirubin but mainly indirect bilirubin.w LDH is elevated clinically more suggestive of hemolytic anemia patient Sonogram showed gallstones asymptomatic Thank you Dr. Alvares for allowing us to participate in the care of the patient we will continue to closely follow-up his care and suggest further recommendations based on the 08/24/18 23:05
[2018-08-25 06:56] LABS: HEMOGLOBIN 11.9 g/dL (14.0-18.0); MEAN CELL VOLUME 84.2 fl (80.0-105.0); MEAN CORPUSCULAR HEMOGLOBIN 30.4 pg (25.0-35.0); MEAN CORPUSCULAR HGB CONC 36.1 g/dl (31.0-37.0); MEAN PLATELET VOLUME 9.7 fl (7.0-11.0); RBC 3.92 10^6/uL (3.5-6.1); RED CELL DISTRIBUTION WIDTH 18.2 % (11.5-14.5); WHITE BLOOD COUNT 18.9 10^3/uL (4.5-11.0)
[2018-08-25] MEDS ORDERED: Aminophylline 25 mg/ml Inj ONE (10:30)
--- NOTE | 2018-08-25 10:56 | CP.PCM.PN ---
<Oskar Cheema - Last Filed: 08/25/18 17:42> Subjective - Date & Time of Evaluation Date of Evaluation: 08/25/18 Time of Evaluation: 10:47 - Subjective Subjective: Oskar Cheema, PGY-1, GI Progress Note for Dr. Velasquez Patient seen and evaluated at bedside. He reports minor chest pain overnight and was given tylenol with resolution of the pain. He has no acute symptoms at this time including dizziness, chest pain, heart palpitations, shortness of breath, nausea, vomiting, constipation, or diarrhea. Last BM was last night and unremarkable. Objective - Vital Signs/Intake and Output Vital Signs (last 24 hours): Temp Pulse Resp BP Pulse Ox 99.9 F H 92 H 18 112/81 95 08/25/18 06:00 08/25/18 06:00 08/25/18 06:00 08/25/18 06:00 08/25/18 06:00 Intake and Output: 08/25/18 08/25/18 06:59 18:59 Intake Total 0 Output Total 1750 Balance -1750 - Medications Medications: Current Medications Acetaminophen (Tylenol 325mg Tab) 650 mg PO Q4H PRN PRN Reason: Temp>100.4*F Last Admin: 08/25/18 01:50 Dose: 650 mg Aspirin (Ecotrin) 81 mg PO DAILY [facility] Last Admin: 08/25/18 10:00 Dose: 81 mg Folic Acid (Folic Acid) 1 mg PO DAILY [facility] Last Admin: 08/25/18 10:00 Dose: 1 mg Ceftriaxone Sodium (Rocephin 1 Gram Ivpb) 1 gm in 100 mls @ 100 mls/hr IVPB DAILY [facility]; Protocol Last Admin: 08/24/18 10:10 Dose: Not Given - Labs Labs: 08/25/18 06:10 08/24/18 07:00 PT 13.3 SECONDS (9.4-12.5) H 08/22/18 22:30 INR 1.20 08/22/18 22:30 APTT 35.2 Seconds (26.9-38.3) 08/22/18 22:30 - Constitutional Appears: Well, Non-toxic, No Acute Distress - Head Exam Head Exam: ATRAUMATIC, NORMAL INSPECTION, NORMOCEPHALIC - Eye Exam Eye Exam: EOMI, PERRL - ENT Exam ENT Exam: Mucous Membranes Moist - Respiratory Exam Respiratory Exam: Clear to Auscultation Bilateral, NORMAL BREATHING PATTERN - Cardiovascular Exam Cardiovascular Exam: REGULAR RHYTHM, RRR, +S1, +S2 - GI/Abdominal Exam GI & Abdominal Exam: Normal Bowel Sounds, Soft. absent: Tenderness - Extremities Exam Extremities exam: Positive for: full ROM, normal inspection. Negative for: pedal edema - Neurological Exam Neurological exam: Alert, CN II-XII Intact, Oriented x3 - Skin Skin Exam: Dry, Intact, Normal Color Assessment and Plan - Assessment and Plan (Free Text) Assessment: 63 year old male with past medical history of glaucoma and arthritis presents with left rib pain starting 2-3 days ago. GI was consulted for anemia and possible Gilbert's syndrome. #Anemia #Possible Gilbert's Syndrome #Glaucoma #Arthritis Plan: -Patient has anemia with Hgb in the 11s -Iron studies show %transferrin saturation of 12, likely signifying iron deficiency anemia vs. chronic inflammatory state -LDH is elevated at 1125 likely signifying hemolytic anemia as the cause of the anemia. -Haptoglobin was low and retic count was high. Will evaluate with direct and indirect melinda test. -Would recommend EGD to further evaluate history of iron deficiency anemia. -Sonogram showed gallstones asymptomatic -Bilirubin is elevated at 4.8, which likely does not signify Gilbert's syndrome. -Direct bilirubin is 0. Patient plan discussed with Dr. Velasquez. <Swapna Velasquez V - Last Filed: 08/25/18 21:21> Objective - Vital Signs/Intake and Output Vital Signs (last 24 hours): Temp Pulse Resp BP Pulse Ox 101.7 F H 109 H 18 120/78 95 08/25/18 17:50 08/25/18 18:00 08/25/18 17:50 08/25/18 17:50 08/25/18 06:00 Intake and Output: 08/25/18 08/26/18 18:59 06:59 Intake Total 600 Output Total 350 Balance 250 - Medications Medications: Current Medications Acetaminophen (Tylenol 325mg Tab) 650 mg PO Q4H PRN PRN Reason: Temp>100.4*F Last Admin: 08/25/18 18:29 Dose: 650 mg Aspirin (Ecotrin) 81 mg PO DAILY [facility] Last Admin: 08/25/18 10:00 Dose: 81 mg Folic Acid (Folic Acid) 1 mg PO DAILY [facility] Last Admin: 08/25/18 10:00 Dose: 1 mg Ceftriaxone Sodium (Rocephin 1 Gram Ivpb) 1 gm in 100 mls @ 100 mls/hr IVPB DAILY [facility]; Protocol Stop: 08/28/18 10:59 Last Admin: 08/25/18 14:03 Dose: 100 mls/hr Sodium Chloride (Sodium Chloride 0.45%) 1,000 mls @ 100 mls/hr IV .Q10H [facility] Last Admin: 08/25/18 18:30 Dose: 100 mls/hr Vancomycin HCl (Vancomycin 1gm) 1 gm in 250 mls @ 167 mls/hr IVPB DAILY [facility]; Protocol Last Admin: 08/25/18 18:28 Dose: 167 mls/hr - Labs Labs: 08/25/18 06:10 08/24/18 07:00 PT 13.3 SECONDS (9.4-12.5) H 08/22/18 22:30 INR 1.20 08/22/18 22:30 APTT 35.2 Seconds (26.9-38.3) 08/22/18 22:30 Attending/Attestation - Attestation I have personally seen and examined this patient.: Yes I have fully participated in the care of the patient.: Yes I have reviewed all pertinent clinical information, including history, physical exam and plan: Yes Notes (Text): This patient was seen and evaluated along with the resident team earlier. This is an addendum to the GI progress report dictated by the resident. The real concern is increasing white cell count with a spiking temperature. Etiology is unclear ID note was reviewed on empiric antibiotic Rocephin. Cultures have been negative so far Patient does have a mild anemia with the increased LDH and a hemolytic process elevated bilirubin mainly indirect bilirubin. Ultrasound scan showed a stones common bile duct normal caliber. Alkaline phosphatase normal direct bilirubin normal. Clinical picture is not in favor of cholangitis however spiking fever is a real concern Would continue antibiotics as per ID. Would request repeat LFTs with the fractionation of total bilirubin. If the patient continued to spike with increasing LFTs then will consider MRCP to further evaluate. Etiology for hemolytic process is unclear Gilbert's could be a differential diagnosis however this high level of total bilirubin less common in [place] Thank you Dr. Alvares for allowing us to participate in the care of the patient we will continue to closely follow-up her care and suggest further recommendations based on the clinical course 08/25/18 21:16
--- NOTE | 2018-08-25 12:27 | RAD ---
Date of service: 08/25/2018 HISTORY: abdominal distension COMPARISON: 03/24/2015 TECHNIQUE: Two view obtained. FINDINGS: BOWEL: Normal. No obstruction. No free air. Moderate constipation BONES: Normal. OTHER FINDINGS: None. IMPRESSION: Moderate constipation
--- NOTE | 2018-08-25 12:50 | PN ---
DATE: 08/25/2018 SUBJECTIVE: This 63-year-old male remains hospitalized on the morning of 08/25/2018. He continues on the cardiac phelan at the [facility] having been admitted with sharp substernal chest discomfort. Hospital course has been complicated by fevers of unclear etiology and rising leukocytosis. The patient also was complaining of abdominal discomfort but according to his nurse, Namrata, has had a bowel movement which was unremarkable earlier today. PHYSICAL EXAMINATION: At present temperature is 99.9, respirations 18, pulse 92, blood pressure 112/81 with a pulse ox of 95% on room air. 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 Physical exam is unchanged. LABORATORY DATA: White count 18,900, hemoglobin 11.9, hematocrit 33, platelets 142,000. Sodium 141, K 3.7, chloride 108, bicarb 26, BUN 17, creatinine 1.3, random blood sugar 120, calcium 8.6, phosphorous 3, magnesium 1.8, percent saturation 12, direct bilirubin 0.6 with a total bilirubin of 4.8, AST 46, ALT 16, alk phos 72, troponin 0.01. Vitamin B12 level 315 and folic acid 17.3. Urinalysis x2 was unremarkable and influenza A and B serologies are negative. Blood culture show no growth at 24 hours. IMPRESSION: This is a 63-year-old male admitted with typical chest pain and comorbidities of iron-deficiency anemia and course complicated by fever and leukocytosis with cause of fever unclear. PLAN: The plan at present is to await sputum and urine cultures that have been sent. The patient will have an abdominal flat plate in upright for completeness sake. He continues on Ecotrin 81 mg p.o. daily, folic acid 1 mg p.o. daily, Rocephin 1 g IV every 24 hours and Tylenol 650 p.o. every 6 hours p.r.n. pain or temperature greater than 101. At present, he is n.p.o. for stress testing. I have asked his nurse to clarify diet and further workup and antibiotic orders with consultants from GI and Infectious Disease and greater than 35 minutes were spent in the care management, review of labs, orders, x-rays and discussion of this patient with his nurse. All questions were answered. Lizzy Alvares MD [facility] # [id number] MTDZenon
[2018-08-25] MEDS: cefTRIAXone 1 gm 1 GM/100 ML BAG IVPB SCH (14:03)
--- NOTE | 2018-08-25 16:42 | CP.PCM.PN ---
Subjective - Date & Time of Evaluation Date of Evaluation: 08/25/18 Time of Evaluation: 15:00 - Subjective Subjective: Infectious Disease Follow Up: August 25, 2018 63 yo AA male with initial presentation for left sided stabbing chest pain while shopping the day prior to admission. The patient has a PMHx of Glaucoma and Degenerative Arthritis. He is on medical disability for a right leg injury that occurred at work several years ago. ID called for fevers up to 102.3 F in the past 24 hours. The patient had clear Chest X-rays, unremarkable urinalysis, and mild-mod leukocytosis. Bush cultures taken when fever up to 102.3 F. Occassional spikes of fever throughout the day yesterday and borderline temperatures today. Cultures negative so far at 24 hours. Patient is denying complaints. Abdominal X-ray showing moderate constipation. Objective - Vital Signs/Intake and Output Vital Signs (last 24 hours): Temp Pulse Resp BP Pulse Ox 99.9 F H 106 H 18 112/81 95 08/25/18 06:00 08/25/18 10:00 08/25/18 06:00 08/25/18 06:00 08/25/18 06:00 Intake and Output: 08/25/18 08/25/18 06:59 18:59 Intake Total 0 Output Total 1750 Balance -1750 - Medications Medications: Current Medications Acetaminophen (Tylenol 325mg Tab) 650 mg PO Q4H PRN PRN Reason: Temp>100.4*F Last Admin: 08/25/18 01:50 Dose: 650 mg Aspirin (Ecotrin) 81 mg PO DAILY [facility] Last Admin: 08/25/18 10:00 Dose: 81 mg Folic Acid (Folic Acid) 1 mg PO DAILY [facility] Last Admin: 08/25/18 10:00 Dose: 1 mg Ceftriaxone Sodium (Rocephin 1 Gram Ivpb) 1 gm in 100 mls @ 100 mls/hr IVPB DAILY [facility]; Protocol Last Admin: 08/25/18 14:03 Dose: 100 mls/hr - Labs Labs: 08/25/18 06:10 08/24/18 07:00 PT 13.3 SECONDS (9.4-12.5) H 08/22/18 22:30 INR 1.20 08/22/18 22:30 APTT 35.2 Seconds (26.9-38.3) 08/22/18 22:30 - Constitutional Appears: Non-toxic, No Acute Distress, Chronically Ill - Head Exam Head Exam: ATRAUMATIC, NORMOCEPHALIC - Eye Exam Eye Exam: EOMI, PERRL Pupil Exam: NORMAL ACCOMODATION, PERRL - ENT Exam ENT Exam: Mucous Membranes Moist, Normal External Ear Exam, TM's Normal Bilaterally - Neck Exam Neck Exam: Full ROM, Normal Inspection - Respiratory Exam Respiratory Exam: Clear to Ausculation Bilateral, NORMAL BREATHING PATTERN. absent: Rales, Rhonchi, Wheezes - Cardiovascular Exam Cardiovascular Exam: REGULAR RHYTHM, RRR, +S1, +S2 - GI/Abdominal Exam GI & Abdominal Exam: Soft, Normal Bowel Sounds. absent: Distended, Tenderness - Extremities Exam Extremities Exam: Full ROM, Normal Inspection - Neurological Exam Neurological Exam: Alert, Awake, CN II-XII Intact, Oriented x3 - Psychiatric Exam Psychiatric exam: Normal Affect, Normal Mood - Skin Skin Exam: Intact, Normal Color Assessment and Plan - Assessment and Plan (Free Text) Assessment: 63 yo AA male with presentation for fevers up to 102.3 F in the past 24 hours initially presenting for unstable angina. Urinalysis not indicative for UTI. Chest X-rays negative. Some renal insufficiency. Bilirubin counts are elevated but has had similar values in two distant hospitalizations. LDH elevated. Leuk ocytosis. Influenza testing negative. On Rocephin at this time. Bush cultures pending. Continue with Rocephin for now. Monitor temperature trend. Patient denying any additional complaints at this time. Obtain abdominal X-ray. Patient without bowel movements for the past 2 days. Abdomen distended. Abdominal X-ray showing moderate constipation. Cultures negative at 24 hours so far. Continue Rocephin for now. Thank you for allowing me to participate in the care of the patient, we will f terrence with you.
[2018-08-25] MEDS: Vancomycin 1gm in NS 250ml 1 GM/250 ML BAG IVPB SCH (18:28)
[2018-08-25] MEDS: Sodium Chloride 0.45% 1,000 ML IV SCH (18:30)
--- NOTE | 2018-08-25 21:40 | CARD ---
APPROVED REPORT Date of service: 08/25/2018 Protocol: LEXISCAN Test Type: Lexiscan Sestamibi Stress Test Attending Physician: Dr. Joseluis Estrada Referring Physician: Dr. Lizzy Alvares Test Indications: Chest Pain Height:6 ft 3 in Weight:170lbs Medications: Tylenol, Aspirin, Rocephin, Folic Acid Medical History: 63 y/o male. Hx of palpitations. Target HR: 156 bpm Resting ECG: RSR. Non Specific ST-T Changes. Resting Heart Rate: 94 bpm Resting Blood Pressure: 118/80mmHg Submaximum (85%): 133 bpm PROCEDURE Pharmacologic stress testing was performed using 0.4mg per 5ml of regadenoson given intravenously over 7-10 seconds. POST EXERCISE Reason for Termination: Protocol completed Target HR: No Max HR: 93 bpm 72% of Maximum Predicted HR: 156 bpm Exercise duration: 00:31 min:sec, 0 Stage Exercise capacity: 1.0METs Max Blood Pressure: 118/80mmHg Blood Pressure response to exercise: normal resting BP - appropriate response Heart Rate response to exercise: appropriate Chest Pain: No, none Angina index: 0 Arrhythmia: No, none ST Change: No, none Deviation: 0 mm INTERPRETATION Stress EKG Conclusion: IV LEXISCAN NUCLEAR STRESS TEST NEGATIVE FOR CHEST PAIN AND NEGATIVE FOR ST-T CHANGES. NUCLEAR SCAN REPORT TO FOLLOW. Signed by Joseluis Estrada Electronically Approved: 08/25/2018 12:08:12 EXAM: Myocardial Perfusion STRESS/REST Stress Test Type: Pharmacologic Imaging Protocol The imaging protocol used to acquire images was Stress Tc-99m/rest Tc-99m 1 day Rest Spect myocardial perfusion imaging was performed in supine position 60 minutes following the injection of 30.2 mCi of Tc-99 Myoview. At peak stress, the patient was injected intravenously with 10.9mCi of Tc-99 tetrofosmin after an infusion time of 0 minutes and 10 seconds. Gated Stress Spect was performed 60 minutes after intravenous Tc-99 Myoview injection. The images were gated to evaluate regional wall motion and calculate ventricular ejection fraction.Images were reconstructed using backfilter projection method in short horizontal and verticle long axis. Spect slices were generated. LV Perfusion The quality of the study is good. The left ventricle is within normal limits in size with thickened myocardium. The right ventricle is unremarkable. The lung uptake is normal. The distribution of tracer reveals moderately and diffusely decreased perfusion in the inferior wall on the stress study. The remainder of the LV myocardium is unremarkable. The rest myocardial perfusion study shows no significant change. Wall Motion Wall motion study shows good contractility of the left ventricle. LVEF = 59%. Conclusion 1. Essentially normal SPECT myocardial perfusion study. 2. Fixed, inferior defect is most likely due to diaphrgmatic attenuation. 3. Normal gated wall motion and thicknening of the left ventricle.
[2018-08-26] MEDS: Sodium Chloride 0.45% 1,000 ML IV SCH ×2 (05:53→17:40)
[2018-08-26 06:30] LABS: HEMOGLOBIN 10.7 g/dL (14.0-18.0); MEAN CELL VOLUME 83.2 fl (80.0-105.0); RBC 3.57 10^6/uL (3.5-6.1); RED CELL DISTRIBUTION WIDTH 18.4 % (11.5-14.5); WHITE BLOOD COUNT 14.9 10^3/uL (4.5-11.0)
[2018-08-26 07:44] LABS: BLOOD UREA NITROGEN 19 mg/dL (7-21); CALCIUM 8.3 mg/dL (8.4-10.5); GFR NON-AFRICAN AMERICAN 51
[2018-08-26] MEDS ORDERED: Gadodiamide 287 MG/ML VIAL (20ML) IV ONE (09:46)
--- NOTE | 2018-08-26 11:39 | CP.PCM.PN ---
<Oskar Cheema - Last Filed: 08/26/18 11:32> Subjective - Date & Time of Evaluation Date of Evaluation: 08/26/18 Time of Evaluation: 11:32 - Subjective Subjective: Oskar Cheema, PGY-1, GI Progress Note for Dr. Velasquez Patient seen and evaluated at bedside. Patient was febrile overnight with Tmax of 101.3. He is currently afebrile. Patient denies any symptoms today. Objective - Vital Signs/Intake and Output Vital Signs (last 24 hours): Temp Pulse Resp BP Pulse Ox 98.2 F 100 H 19 120/72 92 L 08/26/18 06:00 08/26/18 06:00 08/26/18 06:00 08/26/18 06:00 08/26/18 06:00 Intake and Output: 08/26/18 08/26/18 06:59 18:59 Intake Total 1380 Output Total 550 Balance 830 - Medications Medications: Current Medications Acetaminophen (Tylenol 325mg Tab) 650 mg PO Q4H PRN PRN Reason: Temp>100.4*F Last Admin: 08/26/18 05:54 Dose: 650 mg Aspirin (Ecotrin) 81 mg PO DAILY [facility] Last Admin: 08/25/18 10:00 Dose: 81 mg Folic Acid (Folic Acid) 1 mg PO DAILY [facility] Last Admin: 08/25/18 10:00 Dose: 1 mg Ceftriaxone Sodium (Rocephin 1 Gram Ivpb) 1 gm in 100 mls @ 100 mls/hr IVPB DAILY [facility]; Protocol Stop: 08/28/18 10:59 Last Admin: 08/25/18 14:03 Dose: 100 mls/hr Sodium Chloride (Sodium Chloride 0.45%) 1,000 mls @ 100 mls/hr IV .Q10H [facility] Last Admin: 08/26/18 05:53 Dose: 100 mls/hr Vancomycin HCl (Vancomycin 1gm) 1 gm in 250 mls @ 167 mls/hr IVPB DAILY [facility]; Protocol Last Admin: 08/25/18 18:28 Dose: 167 mls/hr Pantoprazole Sodium (Protonix Ec Tab) 40 mg PO 0600 AT - Labs Labs: 08/26/18 05:30 08/26/18 05:30 PT 13.3 SECONDS (9.4-12.5) H 08/22/18 22:30 INR 1.20 08/22/18 22:30 APTT 35.2 Seconds (26.9-38.3) 08/22/18 22:30 - Constitutional Appears: Well, Non-toxic, No Acute Distress - Head Exam Head Exam: ATRAUMATIC, NORMAL INSPECTION, NORMOCEPHALIC - Eye Exam Eye Exam: EOMI, PERRL - ENT Exam ENT Exam: Mucous Membranes Moist - Respiratory Exam Respiratory Exam: Clear to Auscultation Bilateral, NORMAL BREATHING PATTERN - Cardiovascular Exam Cardiovascular Exam: REGULAR RHYTHM, RRR, +S1, +S2 - GI/Abdominal Exam GI & Abdominal Exam: Normal Bowel Sounds, Soft. absent: Tenderness - Extremities Exam Extremities exam: Positive for: full ROM, normal inspection. Negative for: ped al edema - Neurological Exam Neurological exam: Alert, CN II-XII Intact, Oriented x3 - Skin Skin Exam: Dry, Intact, Normal Color Assessment and Plan - Assessment and Plan (Free Text) Assessment: 63 year old male with past medical history of glaucoma and arthritis presents with left rib pain starting 2-3 days ago. GI was consulted for anemia and possible Gilbert's syndrome. #Anemia #Possible Gilbert's Syndrome #Glaucoma #Arthritis Plan: -Patient has anemia with Hgb in the 10s-11s -Iron studies show %transferrin saturation of 12, likely signifying iron deficiency anemia vs. chronic inflammatory state -LDH is elevated at 1125 likely signifying hemolytic anemia as the cause of the anemia. -Haptoglobin was low and retic count was high. Will evaluate with direct and indirect melinda test. -Would recommend EGD to further evaluate history of iron deficiency anemia. -Sonogram showed gallstones asymptomatic -Bilirubin is elevated at 4.8, which likely does not signify Gilbert's syndrome. -Direct bilirubin is 0. -Will obtain MRI Abdomen/MRCP for further evaluation of elevated bilirubin and due to unknown source of possible infection. -Will obtain hepatitis panel, INR, liver function test for further evaluation. Patient plan discussed with Dr. Velasquez. <Swapna Velasquez V - Last Filed: 08/27/18 00:01> Objective - Vital Signs/Intake and Output Vital Signs (last 24 hours): Temp Pulse Resp BP Pulse Ox 101.9 F H 102 H 20 117/76 92 L 08/26/18 17:39 08/26/18 17:39 08/26/18 17:39 08/26/18 17:39 08/26/18 06:00 Intake and Output: 08/26/18 08/27/18 18:59 06:59 Intake Total 2009 Output Total 520 Balance -520 2009 - Medications Medications: Current Medications Acetaminophen (Tylenol 325mg Tab) 650 mg PO Q4H PRN PRN Reason: Temp>100.4*F Last Admin: 08/26/18 17:39 Dose: 650 mg Aspirin (Ecotrin) 81 mg PO DAILY [facility] Last Admin: 08/26/18 13:05 Dose: 81 mg Folic Acid (Folic Acid) 1 mg PO DAILY [facility] Last Admin: 08/26/18 13:06 Dose: 1 mg Ceftriaxone Sodium (Rocephin 1 Gram Ivpb) 1 gm in 100 mls @ 100 mls/hr IVPB DAILY [facility]; Protocol Stop: 08/28/18 10:59 Last Admin: 08/26/18 13:05 Dose: 100 mls/hr Sodium Chloride (Sodium Chloride 0.45%) 1,000 mls @ 100 mls/hr IV .Q10H [facility] Last Admin: 08/26/18 17:40 Dose: 100 mls/hr Vancomycin HCl (Vancomycin 1gm) 1 gm in 250 mls @ 167 mls/hr IVPB DAILY [facility]; Protocol Last Admin: 08/26/18 13:06 Dose: 167 mls/hr Pantoprazole Sodium (Protonix Ec Tab) 40 mg PO 0600 [facility] - Labs Labs: 08/26/18 05:30 08/26/18 05:30 PT 15.9 SECONDS (9.4-12.5) H 08/26/18 11:30 INR 1.41 08/26/18 11:30 APTT 35.2 Seconds (26.9-38.3) 08/22/18 22:30 Attending/Attestation - Attestation I have personally seen and examined this patient.: Yes I have fully participated in the care of the patient.: Yes I have reviewed all pertinent clinical information, including history, physical exam and plan: Yes Notes (Text): This patient was seen and evaluated along with the medical and scientific illustrator team earlier today. This is an addendum to the GI progress report dictated by the resident. MRI report reviewed. Possible pneumonia continue the antibiotics follow-up LFTs mainly indirect bilirubin suggestive of hemolytic anemia. Follow-up LFT ID follow-up Follow-up culture 08/26/18 23:58
[2018-08-26 11:51] LABS: INR 1.41; PROTHROMBIN TIME 15.9 SECONDS (9.4-12.5)
[2018-08-26 11:53] LABS: ALB/GLOB RATIO 0.8 (1.1-1.8); ALBUMIN 3.6 g/dL (3.0-4.8); BILIRUBIN,DIRECT 0.4 mg/dL (0.0-0.4)
--- NOTE | 2018-08-26 12:35 | MRI ---
Date of service: 08/26/2018 PROCEDURE: MRI Abdomen with and without contrast plus MRCP HISTORY: Elevated liver function tests, abdominal pain and fever COMPARISON: None available. TECHNIQUE: Multisequence, multiplanar MR images of the abdomen with and without gadolinium contrast enhancement. 20 cc of Omniscan FINDINGS: LIVER: Unremarkable GALLBLADDER: Unremarkable. The common duct is normal in caliber. There are no stones visualized SPLEEN: Unremarkable. PANCREAS: Unremarkable. ADRENALS: Unremarkable. KIDNEYS: Unremarkable. AORTA: No aneurysm. ASCITES: None. PERITONEUM: Unremarkable. LYMPH NODES: Unremarkable. OTHER FINDINGS: Bibasilar consolidation suspicious for pneumonia IMPRESSION: Bibasilar consolidation suspicious for pneumonia
[2018-08-26] MEDS: cefTRIAXone 1 gm 1 GM/100 ML BAG IVPB SCH (13:05)
[2018-08-26] MEDS: Vancomycin 1gm in NS 250ml 1 GM/250 ML BAG IVPB SCH (13:06)
[2018-08-26 16:57] LABS: HEPATITIS B SURFACE AG Negative (NEGATIVE)
[2018-08-26 17:03] LABS: HEPATITIS A IGM NEGATIVE (NEGATIVE); HEPATITIS B CORE AB NEGATIVE (NEGATIVE)
[2018-08-26 17:14] LABS: HEPATITIS C ANTIBODY NEGATIVE (NEGATIVE)
--- NOTE | 2018-08-26 17:36 | CP.PCM.PN ---
Subjective - Date & Time of Evaluation Date of Evaluation: 08/26/18 Time of Evaluation: 16:30 - Subjective Subjective: Infectious Disease Follow Up: August 26, 2018 63 yo AA male with initial presentation for left sided stabbing chest pain while shopping the day prior to admission. The patient has a PMHx of Glaucoma and Degenerative Arthritis. He is on medical disability for a right leg injury that occurred at work several years ago. ID called for fevers up to 102.3 F in the past 24 hours. The patient had clear Chest X-rays, unremarkable urinalysis, and mild-mod leukocytosis. Bush cultures taken when fever up to 102.3 F. Occassional spikes of fever throughout the day yesterday and borderline temperatures today. Cultures negative so far at 48 hours. Patient is denying complaints. Abdominal X-ray showing moderate constipation. MRCP was done... strangely enough, incidental findings/signs of a bilateral pneumonia seen on the MRCP. Patient still with fever this morning of 101.3 F and 101.7 F over the last 24 hours. A urine culture is showing <10,000 growth of gram positive cocci. No specific cause for the fevers found as of yet. Objective - Vital Signs/Intake and Output Vital Signs (last 24 hours): Temp Pulse Resp BP Pulse Ox 98 F 80 20 120/77 92 L 08/26/18 12:00 08/26/18 12:00 08/26/18 12:00 08/26/18 12:00 08/26/18 06:00 Intake and Output: 08/26/18 08/26/18 06:59 18:59 Intake Total 1380 Output Total 550 520 Balance 830 -520 - Medications Medications: Current Medications Acetaminophen (Tylenol 325mg Tab) 650 mg PO Q4H PRN PRN Reason: Temp>100.4*F Last Admin: 08/26/18 05:54 Dose: 650 mg Aspirin (Ecotrin) 81 mg PO DAILY [facility] Last Admin: 08/26/18 13:05 Dose: 81 mg Folic Acid (Folic Acid) 1 mg PO DAILY [facility] Last Admin: 08/26/18 13:06 Dose: 1 mg Ceftriaxone Sodium (Rocephin 1 Gram Ivpb) 1 gm in 100 mls @ 100 mls/hr IVPB DAILY [facility]; Protocol Stop: 08/28/18 10:59 Last Admin: 08/26/18 13:05 Dose: 100 mls/hr Sodium Chloride (Sodium Chloride 0.45%) 1,000 mls @ 100 mls/hr IV .Q10H TA Last Admin: 08/26/18 05:53 Dose: 100 mls/hr Vancomycin HCl (Vancomycin 1gm) 1 gm in 250 mls @ 167 mls/hr IVPB DAILY [facility]; Protocol Last Admin: 08/26/18 13:06 Dose: 167 mls/hr Pantoprazole Sodium (Protonix Ec Tab) 40 mg PO 0600 [facility] - Labs Labs: 08/26/18 05:30 08/26/18 05:30 PT 15.9 SECONDS (9.4-12.5) H 08/26/18 11:30 INR 1.41 08/26/18 11:30 APTT 35.2 Seconds (26.9-38.3) 08/22/18 22:30 - Constitutional Appears: Non-toxic, No Acute Distress, Chronically Ill - Head Exam Head Exam: ATRAUMATIC, NORMOCEPHALIC - Eye Exam Eye Exam: EOMI, PERRL Pupil Exam: NORMAL ACCOMODATION, PERRL - ENT Exam ENT Exam: Mucous Membranes Moist, Normal External Ear Exam, TM's Normal Bilaterally - Neck Exam Neck Exam: Full ROM, Normal Inspection - Respiratory Exam Respiratory Exam: Clear to Ausculation Bilateral, NORMAL BREATHING PATTERN. absent: Rales, Rhonchi, Wheezes - Cardiovascular Exam Cardiovascular Exam: REGULAR RHYTHM, RRR, +S1, +S2 - GI/Abdominal Exam GI & Abdominal Exam: Soft, Normal Bowel Sounds. absent: Distended, Tenderness - Neurological Exam Neurological Exam: Alert, Awake, CN II-XII Intact, Oriented x3 - Psychiatric Exam Psychiatric exam: Normal Affect, Normal Mood - Skin Skin Exam: Intact, Normal Color Assessment and Plan - Assessment and Plan (Free Text) Assessment: 63 yo AA male with presentation for fevers up to 102.3 F in the past 24 hours initially presenting for unstable angina. Urinalysis not indicative for UTI. Chest X-rays negative. Some renal insufficiency. Bilirubin counts are elevated but has had similar values in two distant hospitalizations. LDH elevated. Leukocytosis. Influenza testing negative. On Rocephin at this time. Bush cultures pending. Continue with Rocephin for now. Monitor temperature trend. Patient denying any additional complaints at this time. Obtain abdominal X-ray. Patient without bowel movements for the past 2 days. Abdomen distended. Abdominal X-ray showing moderate constipation. Cultures negative at 48 hours so far. Continue Rocephin for now. Still with episodes of fevers up to 101.7 F in the past 24 hours and 101.3 F this morning. MRCP incidentally found bilateral pneumonia. Thank you for allowing me to participate in the care of the patient, we will follow with you.
[2018-08-27] MEDS: Pantoprazole 40 mg EC Tab PO SCH (05:14)
[2018-08-27] MEDS: Sodium Chloride 0.45% 1,000 ML IV SCH ×3 (05:17→19:30)
--- NOTE | 2018-08-27 06:50 | PN ---
DATE: 08/26/2018 SUBJECTIVE: This is a 63-year-old male who was examined at the [facility] on the cardiac phelan on the morning of , 08/26/2018. The patient was lying in bed. He denied any active chest pain. He was noted to have a temperature of 98.2 at the time of my interview, however, it is had been reported as 101.3 earlier this morning. The patient denied any chills, chest pain, hemoptysis, or diarrhea. There was no dysuria, and he remains in a sinus rhythm on the potline monitor. He is having formed bowel movements wtihout difficulty. OBJECTIVE: VITAL SIGNS: His blood pressure is 120/72, respirations are 19 and unlabored, and his pulse ox was 95%. HEAD: Normocephalic, atraumatic. EYES: No icterus. EARS: Clear. THROAT: Noninjected. NECK: Supple. HEART: Regular, S1, S2. No pathological rubs, murmurs, or gallops. LUNGS: Without wheezing, no rhonchi. ABDOMEN: Soft. EXTREMITIES: No edema. SKIN: Without rash. NEUROLOGICAL: Intact. PSYCHOLOGICAL: Alert. VASCULAR: Legs are warm to touch. LABORATORY DATA: White count 14,900, previously 18,900; hemoglobin 10.7; hematocrit 29.7; platelets 130,000. PT/INR 1.4/1, PTT 35.2. Sodium 140, potassium 3.9, chloride 108, bicarb 23, BUN 19, creatinine 1.4, random blood sugar 111, calcium 8.3, total bilirubin 3.5, direct bilirubin 0.4, AST 44, ALT 19, alk phos 75, ferritin 1310. Repeat urinalysis unremarkable. Hepatitis A antibody positive, hepatitis A IgM antibody negative, hepatitis C antibody negative, hepatitis B antibody positive with hepatitis B surface antigen negative. Influenza A and B negative. MRCP pending. IMPRESSION: A 63-year-old male with multiple medical problems including admission for chest pain, now resolved with an unremarkable 2D echocardiogram and stress test and comorbidities of fever in the setting of negative blood and urine cultures to date and an unremarkable chest x-ray. Plan is to continue with IV Rocephin under the direction of Dr. Darrion Ansari from infectious disease. The patient will continue on Ecotrin 81 mg p.o. daily, folic acid 1 mg p.o. daily. Tylenol 650 p.o. every 6 hours p.r.n. pain or temperature greater than 101. The patient was started on vancomycin 1 g IV daily under the direction of Dr. Darrion Ansari and will be scheduled for a basic metabolic panel and CBC in the a.m. He continues on IV fluids given febrile illness and is cleared for liquid diet by Gastroenterology who has plans for endoscopy, given recent acute on chronic anemia in the setting of iron-deficiency. It should be noted that the patient has had a bowel movement and does not complain of any abdominal discomfort at this time, and greater than 35 minutes was spent in the care management, review of labs, orders, x-rays, and discussion of this patient with himself, co-consultants, from GI and Infectious Disease and nursing. All questions were answered Lizzy Alvares MD MTDD
[2018-08-27 07:34] LABS: HEMOGLOBIN 9.8 g/dL (14.0-18.0); MEAN CELL VOLUME 80.7 fl (80.0-105.0); MEAN CORPUSCULAR HEMOGLOBIN 29.1 pg (25.0-35.0); MEAN PLATELET VOLUME 9.8 fl (7.0-11.0); RBC 3.37 10^6/uL (3.5-6.1); RED CELL DISTRIBUTION WIDTH 19.4 % (11.5-14.5); WHITE BLOOD COUNT 12.1 10^3/uL (4.5-11.0)
[2018-08-27 07:50] LABS: BLOOD UREA NITROGEN 14 mg/dL (7-21); CALCIUM 8.4 mg/dL (8.4-10.5); GFR NON-AFRICAN AMERICAN > 60
[2018-08-27 09:10] LABS: ALB/GLOB RATIO 0.8 (1.1-1.8); ALBUMIN 3.4 g/dL (3.0-4.8); BILIRUBIN,DIRECT 0.7 mg/dL (0.0-0.4)
[2018-08-27] MEDS: Vancomycin 1gm in NS 250ml 1 GM/250 ML BAG IVPB SCH (09:32)
[2018-08-27] MEDS: cefTRIAXone 1 gm 1 GM/100 ML BAG IVPB SCH (09:33)
--- NOTE | 2018-08-27 10:46 | CP.PCM.PN ---
<Oskar Cheema - Last Filed: 08/27/18 10:46> Subjective - Date & Time of Evaluation Date of Evaluation: 08/27/18 Time of Evaluation: 10:39 - Subjective Subjective: Oskar Cheema, PGY-1, GI Progress Note for Dr. Velasquez Patient seen and evaluated at bedside. Patient had fever overnight in the 101s. He also reports cough and dark sputum. He denies any nausea, vomiting, abdominal pain, constipation or diarrhea. Objective - Vital Signs/Intake and Output Vital Signs (last 24 hours): Temp Pulse Resp BP Pulse Ox 101.1 F H 98 H 20 124/82 93 L 08/27/18 06:00 08/27/18 06:00 08/27/18 06:00 08/27/18 06:00 08/27/18 06:00 Intake and Output: 08/27/18 08/27/18 06:59 18:59 Intake Total 3810 Balance 3810 - Medications Medications: Current Medications Acetaminophen (Tylenol 325mg Tab) 650 mg PO Q4H PRN PRN Reason: Temp>100.4*F Last Admin: 08/27/18 05:19 Dose: 650 mg Aspirin (Ecotrin) 81 mg PO DAILY TA Last Admin: 08/27/18 09:33 Dose: 81 mg Folic Acid (Folic Acid) 1 mg PO DAILY TA Last Admin: 08/27/18 09:33 Dose: 1 mg Ceftriaxone Sodium (Rocephin 1 Gram Ivpb) 1 gm in 100 mls @ 100 mls/hr IVPB DAILY TA; Protocol Stop: 08/28/18 10:59 Last Admin: 08/27/18 09:33 Dose: 100 mls/hr Sodium Chloride (Sodium Chloride 0.45%) 1,000 mls @ 100 mls/hr IV .Q10H TA Last Admin: 08/27/18 09:33 Dose: 100 mls/hr Vancomycin HCl (Vancomycin 1gm) 1 gm in 250 mls @ 167 mls/hr IVPB DAILY TA; Protocol Last Admin: 08/27/18 09:32 Dose: 167 mls/hr Pantoprazole Sodium (Protonix Ec Tab) 40 mg PO 0600 TA Last Admin: 08/27/18 05:14 Dose: 40 mg - Labs Labs: 08/27/18 07:00 08/27/18 07:00 PT 15.9 SECONDS (9.4-12.5) H 08/26/18 11:30 INR 1.41 08/26/18 11:30 APTT 35.2 Seconds (26.9-38.3) 08/22/18 22:30 - Constitutional Appears: Well, Non-toxic, No Acute Distress - Head Exam Head Exam: ATRAUMATIC, NORMAL INSPECTION, NORMOCEPHALIC - Eye Exam Eye Exam: EOMI, PERRL - ENT Exam ENT Exam: Mucous Membranes Moist - Respiratory Exam Respiratory Exam: Clear to Auscultation Bilateral, NORMAL BREATHING PATTERN - Cardiovascular Exam Cardiovascular Exam: REGULAR RHYTHM, RRR, +S1, +S2 - GI/Abdominal Exam GI & Abdominal Exam: Normal Bowel Sounds, Soft. absent: Tenderness - Extremities Exam Extremities exam: Positive for: full ROM, normal inspection. Negative for: pedal edema - Neurological Exam Neurological exam: Alert, CN II-XII Intact, Oriented x3 - Skin Skin Exam: Dry, Intact, Normal Color Assessment and Plan - Assessment and Plan (Free Text) Assessment: 63 year old male with past medical history of glaucoma and arthritis presents with left rib pain starting 2-3 days ago. GI was consulted for anemia and possible Gilbert's syndrome. #Anemia #Possible Gilbert's Syndrome #Glaucoma #Arthritis Plan: -Patient has anemia with Hgb in the 10s-11s -Iron studies show %transferrin saturation of 12, likely signifying iron def iciency anemia vs. chronic inflammatory state -LDH is elevated at 1125 likely signifying hemolytic anemia as the cause of the anemia. -Haptoglobin was low and retic count was high. Will evaluate with direct and indirect melinda test. -Hepatitis panel unremarkable and has positive Hepatitis A and B antibody. -INR worsened to 1.41 from 1.20. Bilirubin is now improving. -MRCP showed bibasilar lung consolidation, thus, patient could possibly have pneumonia complicated with sepsis leading to intrahepatic cholestasis. -Would recommend EGD to further evaluate history of iron deficiency anemia. -Sonogram showed gallstones asymptomatic -Total Bilirubin is elevated at less than 5, which likely does not signify Gilbert's syndrome. -Direct bilirubin is 0.7 Patient plan discussed with Dr. Velasquez. <Swapna Velasquez V - Last Filed: 08/27/18 23:27> Objective - Vital Signs/Intake and Output Vital Signs (last 24 hours): Temp Pulse Resp BP Pulse Ox 98 F 94 H 19 119/78 93 L 08/27/18 12:00 08/27/18 14:00 08/27/18 12:00 08/27/18 12:00 08/27/18 06:00 Intake and Output: 08/27/18 08/28/18 18:59 06:59 Intake Total 1074 Balance 1074 - Medications Medications: Current Medications Acetaminophen (Tylenol 325mg Tab) 650 mg PO Q4H PRN PRN Reason: Temp>100.4*F Last Admin: 08/27/18 18:30 Dose: 650 mg Aspirin (Ecotrin) 81 mg PO DAILY TA Last Admin: 08/27/18 09:33 Dose: 81 mg Folic Acid (Folic Acid) 1 mg PO DAILY TA Last Admin: 08/27/18 09:33 Dose: 1 mg Sodium Chloride (Sodium Chloride 0.45%) 1,000 mls @ 100 mls/hr IV .Q10H TA Last Admin: 08/27/18 09:33 Dose: 100 mls/hr Vancomycin HCl (Vancomycin 1gm) 1 gm in 250 mls @ 167 mls/hr IVPB DAILY TA; Protocol Last Admin: 08/27/18 09:32 Dose: 167 mls/hr Piperacillin Sod/Tazobactam Sod (Zosyn 3.375 In Ns 100ml) 100 mls @ 25 mls/hr IVPB Q8 TA; Protocol Last Admin: 08/27/18 22:18 Dose: 25 mls/hr Pantoprazole Sodium (Protonix Ec Tab) 40 mg PO 0600 TA Last Admin: 08/27/18 05:14 Dose: 40 mg - Labs Labs: 08/27/18 07:00 08/27/18 07:00 PT 15.9 SECONDS (9.4-12.5) H 08/26/18 11:30 INR 1.41 08/26/18 11:30 APTT 35.2 Seconds (26.9-38.3) 08/22/18 22:30 Attending/Attestation - Attestation I have personally seen and examined this patient.: Yes I have fully participated in the care of the patient.: Yes I have reviewed all pertinent clinical information, including history, physical exam and plan: Yes Notes (Text): milana 08/27/18 23:27
[2018-08-27 13:08] LABS: HAV AB (IGM) Nonreactive (Nonreactive)
[2018-08-27] MEDS: Piperacillin/Tazobact 3.375 gm 100 ML IVPB SCH ×2 (15:21→22:18)
--- NOTE | 2018-08-27 16:27 | CP.PCM.PN ---
Subjective - Date & Time of Evaluation Date of Evaluation: 08/27/18 Time of Evaluation: 15:00 - Subjective Subjective: Infectious Disease Follow Up: August 27, 2018 63 yo AA male with initial presentation for left sided stabbing chest pain while shopping the day prior to admission. The patient has a PMHx of Glaucoma and Degenerative Arthritis. He is on medical disability for a right leg injury that occurred at work several years ago. ID called for fevers up to 102.3 F in the past 24 hours. The patient had clear Chest X-rays, unremarkable urinalysis, and mild-mod leukocytosis. Bush cultures taken when fever up to 102.3 F. Occassional spikes of fever throughout the day yesterday and borderline temperatures today. Cultures negative so far at 48 hours. Patient is denying complaints. Abdominal X-ray showing moderate constipation. MRCP was done... strangely enough, incidental findings/signs of a bilateral pneumonia seen on the MRCP. Patient still with fever this morning of 101.3 F and 101.7 F over the last 24 hours. A urine culture is showing <10,000 growth of gram positive cocci. No specific cause for the fevers found as of yet. Patient is complaining of cough and some sputum production. Objective - Vital Signs/Intake and Output Vital Signs (last 24 hours): Temp Pulse Resp BP Pulse Ox 98 F 94 H 19 119/78 93 L 08/27/18 12:00 08/27/18 14:00 08/27/18 12:00 08/27/18 12:00 08/27/18 06:00 Intake and Output: 08/27/18 08/27/18 06:59 18:59 Intake Total 3810 Balance 3810 - Medications Medications: Current Medications Acetaminophen (Tylenol 325mg Tab) 650 mg PO Q4H PRN PRN Reason: Temp>100.4*F Last Admin: 08/27/18 05:19 Dose: 650 mg Aspirin (Ecotrin) 81 mg PO DAILY [facility] Last Admin: 08/27/18 09:33 Dose: 81 mg Folic Acid (Folic Acid) 1 mg PO DAILY [facility] Last Admin: 08/27/18 09:33 Dose: 1 mg Sodium Chloride (Sodium Chloride 0.45%) 1,000 mls @ 100 mls/hr IV .Q10H [facility] Last Admin: 08/27/18 09:33 Dose: 100 mls/hr Vancomycin HCl (Vancomycin 1gm) 1 gm in 250 mls @ 167 mls/hr IVPB DAILY TA; Protocol Last Admin: 08/27/18 09:32 Dose: 167 mls/hr Piperacillin Sod/Tazobactam Sod (Zosyn 3.375 In Ns 100ml) 100 mls @ 25 mls/hr IVPB Q8 TA; Protocol Last Admin: 08/27/18 15:21 Dose: 25 mls/hr Pantoprazole Sodium (Protonix Ec Tab) 40 mg PO 0600 TA Last Admin: 08/27/18 05:14 Dose: 40 mg - Labs Labs: 08/27/18 07:00 08/27/18 07:00 PT 15.9 SECONDS (9.4-12.5) H 08/26/18 11:30 INR 1.41 08/26/18 11:30 APTT 35.2 Seconds (26.9-38.3) 08/22/18 22:30 - Constitutional Appears: Non-toxic, No Acute Distress, Chronically Ill - Head Exam Head Exam: ATRAUMATIC, NORMOCEPHALIC - Eye Exam Eye Exam: EOMI, PERRL Pupil Exam: NORMAL ACCOMODATION, PERRL - ENT Exam ENT Exam: Mucous Membranes Moist, Normal External Ear Exam, TM's Normal Bilaterally - Neck Exam Neck Exam: Full ROM, Normal Inspection - Respiratory Exam Respiratory Exam: Clear to Ausculation Bilateral, NORMAL BREATHING PATTERN. absent: Rales, Rhonchi, Wheezes - Cardiovascular Exam Cardiovascular Exam: REGULAR RHYTHM, RRR, +S1, +S2 - GI/Abdominal Exam GI & Abdominal Exam: Soft, Normal Bowel Sounds. absent: Distended, Tenderness - Extremities Exam Extremities Exam: Full ROM, Normal Inspection - Neurological Exam Neurological Exam: Alert, Awake, CN II-XII Intact, Oriented x3 - Psychiatric Exam Psychiatric exam: Normal Affect, Normal Mood - Skin Skin Exam: Intact, Normal Color Assessment and Plan - Assessment and Plan (Free Text) Assessment: 63 yo AA male with presentation for fevers up to 102.3 F in the past 24 hours initially presenting for unstable angina. Urinalysis not indicative for UTI. Chest X-rays negative. Some renal insufficiency. Bilirubin counts are elevated but has had similar values in two distant hospitalizations. LDH elevated. Leukocytosis. Influenza testing negative. On Rocephin at this time. Bush cultures pending. Continue with Rocephin for now. Monitor temperature trend. Patient denying any additional complaints at this time. Obtain abdominal X-ray. Patient without bowel movements for the past 2 days. Abdomen distended. Abdominal X-ray showing moderate constipation. Cultures negative at 48 hours so far. Continue Rocephin for now. Still with episodes of fevers up to 101.9 F in the past 24 hours. MRCP incidentally found bilateral pneumonia. Patient making occasional cough and complains of sputum production. Will switch Rocephin to Zosyn. Thank you for allowing me to participate in the care of the patient, we will follow with you.
--- NOTE | 2018-08-27 22:37 | PN ---
DATE: 08/27/2018 SUBJECTIVE: This is a 63-year-old male remains hospitalized in the [facility] on the cardiac unit on the morning of 08/27/2018. He continues to have persistent fever. He was noted on an MRCP study to have bibasilar pneumonia. Chest x-ray was unremarkable and the patient now admits to an ccasional cough. Since noting this finding, he has been supplemented with vancomycin 1 g IV every 24 hours in addition to his Rocephin 1 g IV every 24 hours. Blood and urine culture show no growth at present. He is being followed daily by Dr. Darrion Ansari from Infectious Disease, who has recommended continued IV antibiotics as well as IV fluids for fever hydration. The patient denies any chest pain, nausea, vomiting, or diarrhea. PHYSICAL EXAMINATION: VITAL SIGNS: Temperature was 101.1, respirations 20, pulse 98, blood pressure 124/82 with the pulse ox of 95%. HEENT: Head is normocephalic and atraumatic. Eyes; no icterus. Ears; clear. Throat; noninjected. NECK: Supple. HEART: S1 and S2. LUNGS: No wheezing. ABDOMEN: Soft. EXTREMITIES: No edema. SKIN: Without rash. NEUROLOGIC: Intact. PSYCHOLOGICAL: Alert. VASCULAR: Legs warm to touch. LABORATORY DATA: White count 12,100, previously 18,900; hemoglobin 9.8, hematocrit 27.2, and platelets 189,000. Sodium 140, K 3.6, chloride 108, bicarb 25, BUN 14, creatinine 1.1, random blood sugar 113, calcium 8.4, bilirubin 2.9, previously 3.5 with direct bilirubin of 0.7. AST of 86, ALT 36, and alk phos 106. Urine is negative x2. Influenza serology is negative. IMPRESSION: A 63-year-old male with admission for chest pain, complicated by persistent fever, possibly secondary to community-acquired pneumonia in a gentleman with iron deficiency anemia with hemolytic component and probable Gilbert's syndrome. PLAN: At present is to continue Ecotrin, folic acid, oral Protonix, IV Rocephin, IV vancomycin, IV fluid, and p.r.n. Tylenol. The patient continues to being monitored with CBC daily. He is on IV fluids at 100 mL/hour for hydration purposes and is on a liquid diet as per GI who was planning to do an endoscopy. The patient is followed daily by Infectious Disease and based on clinical progress additional diagnostic workup and testing will be entertained. Greater than 35 minutes was spent in the care management, review of lab orders, x-rays, and discussion of this patient with nursing, Infectious Disease and Gastroenterology. All questions were answered. Lizzy Alvares MD MTDD
[2018-08-28] MEDS: Pantoprazole 40 mg EC Tab PO SCH (05:03)
[2018-08-28] MEDS: Piperacillin/Tazobact 3.375 gm 100 ML IVPB SCH ×3 (05:03→23:08)
[2018-08-28 07:29] LABS: HEMOGLOBIN 9.5 g/dL (14.0-18.0); MEAN CELL VOLUME 80.7 fl (80.0-105.0); MEAN CORPUSCULAR HEMOGLOBIN 29.1 pg (25.0-35.0); MEAN PLATELET VOLUME 9.4 fl (7.0-11.0); RBC 3.27 10^6/uL (3.5-6.1); RED CELL DISTRIBUTION WIDTH 19.7 % (11.5-14.5); WHITE BLOOD COUNT 10.9 10^3/uL (4.5-11.0)
[2018-08-28] MEDS: Sodium Chloride 0.45% 1,000 ML IV SCH (11:11)
[2018-08-28] MEDS: Vancomycin 1gm in NS 250ml 1 GM/250 ML BAG IVPB SCH (11:12)
--- NOTE | 2018-08-28 12:57 | CP.PCM.PN ---
Subjective - Date & Time of Evaluation Date of Evaluation: 08/28/18 Time of Evaluation: 11:30 - Subjective Subjective: Infectious Disease Follow Up: August 28, 2018 63 yo AA male with initial presentation for left sided stabbing chest pain while shopping the day prior to admission. The patient has a PMHx of Glaucoma and Degenerative Arthritis. He is on medical disability for a right leg injury that occurred at work several years ago. ID called for fevers up to 102.3 F in the past 24 hours. The patient had clear Chest X-rays, unremarkable urinalysis, and mild-mod leukocytosis. Bush cultures taken when fever up to 102.3 F. Occassional spikes of fever throughout the day yesterday and borderline temperatures today. Cultures negative so far at 48 hours. Patient is denying complaints. Abdominal X-ray showing moderate constipation. MRCP was done... strangely enough, incidental findings/signs of a bilateral pneumonia seen on the MRCP. Patient still with fever this morning of 101.8 F over the last 48 hours. A u rine culture is showing <10,000 growth of gram positive cocci. No specific cause for the fevers found as of yet. Patient is complaining of cough and some sputum production. So far afebrile today. No specific new complaints. Objective - Vital Signs/Intake and Output Vital Signs (last 24 hours): Temp Pulse Resp BP Pulse Ox 99.7 F H 89 19 123/82 95 08/28/18 05:40 08/28/18 05:40 08/28/18 05:40 08/28/18 05:40 08/28/18 05:40 Intake and Output: 08/28/18 08/28/18 06:59 18:59 Intake Total 2634 Balance 2634 - Medications Medications: Current Medications Acetaminophen (Tylenol 325mg Tab) 650 mg PO Q4H PRN PRN Reason: Temp>100.4*F Last Admin: 08/27/18 18:30 Dose: 650 mg Aspirin (Ecotrin) 81 mg PO DAILY [facility] Last Admin: 08/28/18 11:12 Dose: 81 mg Folic Acid (Folic Acid) 1 mg PO DAILY [facility] Last Admin: 08/28/18 11:12 Dose: 1 mg Sodium Chloride (Sodium Chloride 0.45%) 1,000 mls @ 100 mls/hr IV .Q10H [facility] Last Admin: 08/28/18 11:11 Dose: 100 mls/hr Vancomycin HCl (Vancomycin 1gm) 1 gm in 250 mls @ 167 mls/hr IVPB DAILY [facility]; Protocol Last Admin: 08/28/18 11:12 Dose: 167 mls/hr Piperacillin Sod/Tazobactam Sod (Zosyn 3.375 In Ns 100ml) 100 mls @ 25 mls/hr IVPB Q8 TA; Protocol Last Admin: 08/28/18 05:03 Dose: 25 mls/hr Pantoprazole Sodium (Protonix Ec Tab) 40 mg PO 0600 [facility] Last Admin: 08/28/18 05:03 Dose: 40 mg - Labs Labs: 08/28/18 07:00 08/27/18 07:00 PT 15.9 SECONDS (9.4-12.5) H 08/26/18 11:30 INR 1.41 08/26/18 11:30 APTT 35.2 Seconds (26.9-38.3) 08/22/18 22:30 - Constitutional Appears: Non-toxic, No Acute Distress, Chronically Ill - Head Exam Head Exam: ATRAUMATIC, NORMOCEPHALIC - Eye Exam Eye Exam: EOMI, PERRL Pupil Exam: NORMAL ACCOMODATION, PERRL - ENT Exam ENT Exam: Mucous Membranes Moist, Normal External Ear Exam, TM's Normal Bilaterally - Neck Exam Neck Exam: Full ROM, Normal Inspection - Respiratory Exam Respiratory Exam: Clear to Ausculation Bilateral, NORMAL BREATHING PATTERN. absent: Rales, Rhonchi, Wheezes - Cardiovascular Exam Cardiovascular Exam: REGULAR RHYTHM, RRR, +S1, +S2 - GI/Abdominal Exam GI & Abdominal Exam: Soft, Normal Bowel Sounds. absent: Distended, Tenderness - Extremities Exam Extremities Exam: Full ROM, Normal Inspection - Neurological Exam Neurological Exam: Alert, Awake, CN II-XII Intact, Oriented x3 - Psychiatric Exam Psychiatric exam: Normal Affect, Normal Mood - Skin Skin Exam: Intact, Normal Color Assessment and Plan - Assessment and Plan (Free Text) Assessment: 63 yo AA male with presentation for fevers up to 102.3 F in the past 24 hours initially presenting for unstable angina. Urinalysis not indicative for UTI. Chest X-rays negative. Some renal insufficiency. Bilirubin counts are elevated but has had similar values in two distant hospitalizations. LDH elevated. Leukocytosis. Influenza testing negative. Bush cultures pending. Monitor temperature trend. Patient denying any additional complaints at this time. Obtain abdominal X-ray. Patient without bowel movements for the past 2 days. Abdomen distended. Abdominal X-ray showing moderate constipation. Cultures negative at 48 hours so far. Continue Rocephin for now. Still with episodes of fevers up to 101.8 F in the past 48 hours. MRCP incidentally found bilateral pneumonia. Afebrile so far today. Patient making occasional cough and complains of sputum production. On IV Vancomycin and Zosyn. Thank you for allowing me to participate in the care of the patient, we will follow with you.
--- NOTE | 2018-08-28 13:42 | CP.PCM.PN ---
<Bethany Riley - Last Filed: 08/28/18 13:42> Subjective - Date & Time of Evaluation Date of Evaluation: 08/28/18 Time of Evaluation: 07:15 - Subjective Subjective: PGY5 GI Follow-up Pt seen and examined bedside Denies nay abd pain no overnight events Denies any chills or diaphoresis + fever ROS: 12 point ROS conducted, neg other than above Objective - Vital Signs/Intake and Output Vital Signs (last 24 hours): Temp Pulse Resp BP Pulse Ox 99.7 F H 89 19 123/82 95 08/28/18 05:40 08/28/18 05:40 08/28/18 05:40 08/28/18 05:40 08/28/18 05:40 Intake and Output: 08/28/18 08/28/18 06:59 18:59 Intake Total 2634 Balance 2634 - Medications Medications: Current Medications Acetaminophen (Tylenol 325mg Tab) 650 mg PO Q4H PRN PRN Reason: Temp>100.4*F Last Admin: 08/27/18 18:30 Dose: 650 mg Aspirin (Ecotrin) 81 mg PO DAILY TA Last Admin: 08/28/18 11:12 Dose: 81 mg Folic Acid (Folic Acid) 1 mg PO DAILY TA Last Admin: 08/28/18 11:12 Dose: 1 mg Sodium Chloride (Sodium Chloride 0.45%) 1,000 mls @ 100 mls/hr IV .Q10H TA Last Admin: 08/28/18 11:11 Dose: 100 mls/hr Vancomycin HCl (Vancomycin 1gm) 1 gm in 250 mls @ 167 mls/hr IVPB DAILY TA; Protocol Last Admin: 08/28/18 11:12 Dose: 167 mls/hr Piperacillin Sod/Tazobactam Sod (Zosyn 3.375 In Ns 100ml) 100 mls @ 25 mls/hr IVPB Q8 TA; Protocol Last Admin: 08/28/18 05:03 Dose: 25 mls/hr Pantoprazole Sodium (Protonix Ec Tab) 40 mg PO 0600 TA Last Admin: 08/28/18 05:03 Dose: 40 mg - Labs Labs: 08/28/18 07:00 08/27/18 07:00 PT 15.9 SECONDS (9.4-12.5) H 08/26/18 11:30 INR 1.41 08/26/18 11:30 APTT 35.2 Seconds (26.9-38.3) 08/22/18 22:30 - Constitutional Appears: Well, No Acute Distress - Head Exam Head Exam: ATRAUMATIC, NORMOCEPHALIC - Eye Exam Eye Exam: Normal appearance Pupil Exam: NORMAL ACCOMODATION - ENT Exam ENT Exam: Mucous Membranes Moist, Normal Exam - Neck Exam Neck Exam: Normal Inspection - Respiratory Exam Respiratory Exam: Clear to Ausculation Bilateral. absent: Rales, Rhonchi, Wheezes, Respiratory Distress - Cardiovascular Exam Cardiovascular Exam: REGULAR RHYTHM, +S1, +S2 - GI/Abdominal Exam GI & Abdominal Exam: Soft, Normal Bowel Sounds. absent: Distended, Firm, Guarding, Rigid, Tenderness, Hyperactive Bowel Sounds, Rebound - Extremities Exam Extremities Exam: absent: Joint Swelling, Pedal Edema - Neurological Exam Neurological Exam: Alert, Awake, Oriented x3 - Psychiatric Exam Psychiatric exam: Normal Affect, Normal Mood - Skin Skin Exam: Dry, Intact, Normal Color, Warm Assessment and Plan - Assessment and Plan (Free Text) Assessment: 63 year old male with past medical history of glaucoma and arthritis presents with left rib pain starting 2-3 days ago. GI was consulted for anemia and possible Gilbert's syndrome. #Anemia, RAND vs chronic #Possible Gilbert's Syndrome #Glaucoma #Arthritis Plan: -concern for hemolytic process; recommend CT C/A/P to r/o hematoma or blood collection -Hepatitis panel unremarkable and has positive Hepatitis A and B antibody. -Bilirubin is now improving. -Would recommend EGD to further evaluate history of iron deficiency anemia. -Sonogram showed gallstones asymptomatic Patient plan discussed with Dr. Velasquez. <Swapna Velasquez V - Last Filed: 08/28/18 23:56> Objective - Vital Signs/Intake and Output Vital Signs (last 24 hours): Temp Pulse Resp BP Pulse Ox 99.7 F H 114 H 18 157/98 H 95 08/28/18 12:00 08/28/18 18:27 08/28/18 12:00 08/28/18 18:27 08/28/18 05:40 - Medications Medications: Current Medications Acetaminophen (Tylenol 325mg Tab) 650 mg PO Q4H PRN PRN Reason: Temp>100.4*F Last Admin: 08/27/18 18:30 Dose: 650 mg Aspirin (Ecotrin) 81 mg PO DAILY [facility] Last Admin: 08/28/18 11:12 Dose: 81 mg Folic Acid (Folic Acid) 1 mg PO DAILY [facility] Last Admin: 08/28/18 11:12 Dose: 1 mg Sodium Chloride (Sodium Chloride 0.45%) 1,000 mls @ 100 mls/hr IV .Q10H [facility] Last Admin: 08/28/18 11:11 Dose: 100 mls/hr Vancomycin HCl (Vancomycin 1gm) 1 gm in 250 mls @ 167 mls/hr IVPB DAILY [facility]; Protocol Last Admin: 08/28/18 11:12 Dose: 167 mls/hr Piperacillin Sod/Tazobactam Sod (Zosyn 3.375 In Ns 100ml) 100 mls @ 25 mls/hr IVPB Q8 [facility]; Protocol Last Admin: 08/28/18 23:08 Dose: 25 mls/hr Pantoprazole Sodium (Protonix Ec Tab) 40 mg PO 0600 [facility] Last Admin: 08/28/18 05:03 Dose: 40 mg - Labs Labs: 08/28/18 07:00 08/27/18 07:00 PT 15.9 SECONDS (9.4-12.5) H 08/26/18 11:30 INR 1.41 08/26/18 11:30 APTT 35.2 Seconds (26.9-38.3) 08/22/18 22:30 Attending/Attestation - Attestation I have personally seen and examined this patient.: Yes I have fully participated in the care of the patient.: Yes I have reviewed all pertinent clinical information, including history, physical exam and plan: Yes Notes (Text): p 08/28/18 23:56
[2018-08-28] MEDS ORDERED: Metoprolol 1 mg/ml Inj IVP ONE (18:18)
--- NOTE | 2018-08-29 01:33 | PN ---
DATE: 08/28/2018 SUBJECTIVE: This 63-year-old male remains hospitalized on the cardiac phelan at the [facility] on 08/28/2018. The patient is still running low-grade temperatures and now is on IV Zosyn for recent finding of bilateral pneumonia on a MRCP CAT scan study. The patient also complains of a mild cough and his antibiotics have been adjusted by Dr. Ansari. This case was reviewed today in detail with Dr. Swapna Velasquez from . Given the patient's history of persistent fevers, we concur that the patient will be scheduled for a CT of chest, abdomen and pelvis for completeness sake. PHYSICAL EXAMINATION: VITAL SIGNS: The patient is in a sinus rhythm with a temperature of 99.7, respirations 18, pulse 85, and blood pressure 128/82. HEENT: Head: Normocephalic, atraumatic. Eyes: No icterus. Ears: Clear. Throat: Noninjected. NECK: Supple. HEART: S1 and S2. LUNGS: With occasional rhonchi at both bases. ABDOMEN: Soft. EXTREMITIES: No edema. SKIN: Without rash. NEUROLOGIC: Intact. PSYCHOLOGIC: Alert. VASCULAR: Legs warm to touch. LABORATORY DATA: White count 10,900 previously 18,900. Hemoglobin 9.5, hematocrit 26.4, platelets 157,000. Sodium 140, K 3.6, chloride 108, bicarb 25, BUN 14, creatinine 1.1, random blood sugar 113, bilirubin 2.9, direct bilirubin 0.7, AST 85, ALT 36, alk phos 106. Microbiology show blood cultures with no growth at three days, sputum culture negative. Urine culture unremarkable. ASSESSMENT AND PLAN: A 63-year-old male admitted with chest pain, unremarkable echo and stress testing, now with bilateral pneumonia and elevated bilirubin in the setting of Gilbert's syndrome and possible hemolytic anemia. The plan at present is to continue Ecotrin, folic acid, Protonix, intravenous fluids, Tylenol p.r.n. fever, intravenous vancomycin, and intravenous Zosyn. The patient will have a CBC in the a.m. We will check the results of CT of chest, abdomen and pelvis once complete, he continues on a regular diet, and all of the above was discussed in detail with Dr. Swapna Velasquez from today. Based on clinical progress, additional diagnostic workup and testing will be entertained. I will place a consultation with Dr. Brenner from Hematology/Oncology for completeness sake. Greater tnan thirty minutes were spent in the care of this patient today. Lizzy Alvares MD MTDZenon
[2018-08-29] MEDS ORDERED: Iron Sucrose 100 mg/5 ml Inj IVP ONE (06:19)
[2018-08-29] MEDS: Sodium Chloride 0.45% 1,000 ML IV SCH ×4 (06:39→22:06)
[2018-08-29] MEDS: Piperacillin/Tazobact 3.375 gm 100 ML IVPB SCH ×3 (06:40→21:23)
[2018-08-29] MEDS: Pantoprazole 40 mg EC Tab PO SCH (06:41)
[2018-08-29 06:57] LABS: HEMOGLOBIN 8.8 g/dL (14.0-18.0); MEAN CELL VOLUME 80.8 fl (80.0-105.0); MEAN CORPUSCULAR HEMOGLOBIN 28.2 pg (25.0-35.0); MEAN CORPUSCULAR HGB CONC 34.9 g/dl (31.0-37.0); MEAN PLATELET VOLUME 9.8 fl (7.0-11.0); RBC 3.12 10^6/uL (3.5-6.1); WHITE BLOOD COUNT 12.3 10^3/uL (4.5-11.0)
[2018-08-29] MEDS: Vancomycin 1gm in NS 250ml 1 GM/250 ML BAG IVPB SCH (09:06)
[2018-08-29] MEDS ORDERED: Barium Sulfate Susp 2.1% w/v, 2.0% w/w 450 mL Bottle PO ONE (09:22)
--- NOTE | 2018-08-29 13:52 | CP.PCM.PN ---
<Bethany Riley - Last Filed: 08/29/18 13:55> Subjective - Date & Time of Evaluation Date of Evaluation: 08/29/18 Time of Evaluation: 07:10 - Subjective Subjective: PGY5 GI Follow-up Pt seen and examined bedside denies any abd pain RN noted last night having black BM no bright red blood tolerated diet ROS: 12 point ROS conducted, neg other than above Objective - Vital Signs/Intake and Output Vital Signs (last 24 hours): Temp Pulse Resp BP Pulse Ox 98.4 F 79 20 132/82 96 08/29/18 12:00 08/29/18 12:00 08/29/18 12:00 08/29/18 12:00 08/29/18 06:00 Intake and Output: 08/29/18 08/29/18 06:59 18:59 Intake Total 360 Output Total 400 Balance -40 - Medications Medications: Current Medications Acetaminophen (Tylenol 325mg Tab) 650 mg PO Q4H PRN PRN Reason: Temp>100.4*F Last Admin: 08/27/18 18:30 Dose: 650 mg Aspirin (Ecotrin) 81 mg PO DAILY TA Last Admin: 08/29/18 09:06 Dose: 81 mg Clonidine HCl (Catapres) 0.1 mg PO Q4 PRN PRN Reason: NEEDED FORSBP>160OR DBP>100 Folic Acid (Folic Acid) 1 mg PO DAILY [facility] Last Admin: 08/29/18 09:06 Dose: 1 mg Sodium Chloride (Sodium Chloride 0.45%) 1,000 mls @ 100 mls/hr IV .Q10H TA Last Admin: 08/29/18 12:44 Dose: Not Given Vancomycin HCl (Vancomycin 1gm) 1 gm in 250 mls @ 167 mls/hr IVPB DAILY TA; Protocol Last Admin: 08/29/18 09:06 Dose: 167 mls/hr Piperacillin Sod/Tazobactam Sod (Zosyn 3.375 In Ns 100ml) 100 mls @ 25 mls/hr IVPB Q8 TA; Protocol Last Admin: 08/29/18 13:47 Dose: 25 mls/hr Pantoprazole Sodium (Protonix Ec Tab) 40 mg PO 0600 TA Last Admin: 08/29/18 06:41 Dose: 40 mg - Labs Labs: 08/29/18 06:00 08/27/18 07:00 PT 15.9 SECONDS (9.4-12.5) H 08/26/18 11:30 INR 1.41 08/26/18 11:30 APTT 35.2 Seconds (26.9-38.3) 08/22/18 22:30 - Constitutional Appears: No Acute Distress, Chronically Ill - Head Exam Head Exam: ATRAUMATIC, NORMOCEPHALIC - Eye Exam Eye Exam: Normal appearance - Neck Exam Neck Exam: Normal Inspection - Respiratory Exam Respiratory Exam: Clear to Ausculation Bilateral, NORMAL BREATHING PATTERN. absent: Rales, Rhonchi, Wheezes, Respiratory Distress - Cardiovascular Exam Cardiovascular Exam: REGULAR RHYTHM, +S1, +S2 - GI/Abdominal Exam GI & Abdominal Exam: Soft, Normal Bowel Sounds. absent: Distended, Guarding, Rigid, Tenderness, Organomegaly, Rebound - Extremities Exam Extremities Exam: absent: Joint Swelling, Pedal Edema - Neurological Exam Neurological Exam: Alert, Awake, Oriented x3 - Psychiatric Exam Psychiatric exam: Normal Affect, Normal Mood - Skin Skin Exam: Dry, Intact, Normal Color, Warm Assessment and Plan - Assessment and Plan (Free Text) Assessment: 63 year old male with past medical history of glaucoma and arthritis presents with left rib pain starting 2-3 days ago. GI was consulted for anemia and possible Gilbert's syndrome. #Anemia, RAND vs chronic #Possible Gilbert's Syndrome #Glaucoma #Arthritis Plan: -concern for hemolytic process; recommend CT C/A/P to r/o hematoma or blood collection -Hepatitis panel unremarkable and has positive Hepatitis A and B antibody. -Bilirubin is now improving. -Would recommend EGD to further evaluate history of iron deficiency anemia. -Sonogram showed gallstones asymptomatic -plan for EGD tomorrow -NPO after midnight Patient plan discussed with Dr. Velasquez. <Swapna Velasquez V - Last Filed: 08/30/18 00:01> Objective - Vital Signs/Intake and Output Vital Signs (last 24 hours): Temp Pulse Resp BP Pulse Ox 99.4 F 92 H 20 125/81 95 08/29/18 23:18 08/29/18 23:18 08/29/18 23:18 08/29/18 23:18 08/29/18 23:18 - Medications Medications: Current Medications Acetaminophen (Tylenol 325mg Tab) 650 mg PO Q4H PRN PRN Reason: Temp>100.4*F Last Admin: 08/27/18 18:30 Dose: 650 mg Aspirin (Ecotrin) 81 mg PO DAILY TA Last Admin: 08/29/18 09:06 Dose: 81 mg Clonidine HCl (Catapres) 0.1 mg PO Q4 PRN PRN Reason: NEEDED FORSBP>160OR DBP>100 Folic Acid (Folic Acid) 1 mg PO DAILY [facility] Last Admin: 08/29/18 09:06 Dose: 1 mg Sodium Chloride (Sodium Chloride 0.45%) 1,000 mls @ 100 mls/hr IV .Q10H TA Last Admin: 08/29/18 22:06 Dose: Not Given Vancomycin HCl (Vancomycin 1gm) 1 gm in 250 mls @ 167 mls/hr IVPB DAILY [facility]; Protocol Last Admin: 08/29/18 09:06 Dose: 167 mls/hr Piperacillin Sod/Tazobactam Sod (Zosyn 3.375 In Ns 100ml) 100 mls @ 25 mls/hr IVPB Q8 TA; Protocol Last Admin: 08/29/18 21:23 Dose: 25 mls/hr Pantoprazole Sodium (Protonix Ec Tab) 40 mg PO 0600 TA Last Admin: 08/29/18 06:41 Dose: 40 mg - Labs Labs: 08/29/18 06:00 08/27/18 07:00 PT 15.9 SECONDS (9.4-12.5) H 08/26/18 11:30 INR 1.41 08/26/18 11:30 APTT 35.2 Seconds (26.9-38.3) 08/22/18 22:30 Attending/Attestation - Attestation I have personally seen and examined this patient.: Yes I have fully participated in the care of the patient.: Yes I have reviewed all pertinent clinical information, including history, physical exam and plan: Yes Notes (Text): p 08/30/18 00:01
--- NOTE | 2018-08-29 16:27 | CP.PCM.PN ---
Subjective - Date & Time of Evaluation Date of Evaluation: 08/29/18 Time of Evaluation: 15:00 - Subjective Subjective: Infectious Disease Follow Up: August 29, 2018 63 yo AA male with initial presentation for left sided stabbing chest pain while shopping the day prior to admission. The patient has a PMHx of Glaucoma and Degenerative Arthritis. He is on medical disability for a right leg injury that occurred at work several years ago. ID called for fevers up to 102.3 F in the past 24 hours. The patient had clear Chest X-rays, unremarkable urinalysis, and mild-mod leukocytosis. Bush cultures taken when fever up to 102.3 F. Occassional spikes of fever throughout the day yesterday and borderline temperatures today. Cultures negative so far at 48 hours. Patient is denying complaints. Abdominal X-ray showing moderate constipation. MRCP was done... strangely enough, incidental findings/signs of a bilateral pneumonia seen on the MRCP. Patient without fever for the last 48 hours with temperature up to 100.0 F. A urine culture is showing <10,000 growth of gram positive cocci. No specific cause for the fevers found as of yet. Patient had complaints of cough and some sputum production. No specific new complaints. Objective - Vital Signs/Intake and Output Vital Signs (last 24 hours): Temp Pulse Resp BP Pulse Ox 98.4 F 75 20 132/82 96 08/29/18 12:00 08/29/18 14:00 08/29/18 12:00 08/29/18 12:00 08/29/18 06:00 Intake and Output: 08/29/18 08/29/18 06:59 18:59 Intake Total 360 Output Total 400 Balance -40 - Medications Medications: Current Medications Acetaminophen (Tylenol 325mg Tab) 650 mg PO Q4H PRN PRN Reason: Temp>100.4*F Last Admin: 08/27/18 18:30 Dose: 650 mg Aspirin (Ecotrin) 81 mg PO DAILY [facility] Last Admin: 08/29/18 09:06 Dose: 81 mg Clonidine HCl (Catapres) 0.1 mg PO Q4 PRN PRN Reason: NEEDED FORSBP>160OR DBP>100 Folic Acid (Folic Acid) 1 mg PO DAILY [facility] Last Admin: 08/29/18 09:06 Dose: 1 mg Sodium Chloride (Sodium Chloride 0.45%) 1,000 mls @ 100 mls/hr IV .Q10H TA Last Admin: 08/29/18 12:44 Dose: Not Given Vancomycin HCl (Vancomycin 1gm) 1 gm in 250 mls @ 167 mls/hr IVPB DAILY TA; Pr otocol Last Admin: 08/29/18 09:06 Dose: 167 mls/hr Piperacillin Sod/Tazobactam Sod (Zosyn 3.375 In Ns 100ml) 100 mls @ 25 mls/hr IVPB Q8 TA; Protocol Last Admin: 08/29/18 13:47 Dose: 25 mls/hr Pantoprazole Sodium (Protonix Ec Tab) 40 mg PO 0600 TA Last Admin: 08/29/18 06:41 Dose: 40 mg - Labs Labs: 08/29/18 06:00 08/27/18 07:00 PT 15.9 SECONDS (9.4-12.5) H 08/26/18 11:30 INR 1.41 08/26/18 11:30 APTT 35.2 Seconds (26.9-38.3) 08/22/18 22:30 - Constitutional Appears: Non-toxic, No Acute Distress, Chronically Ill - Head Exam Head Exam: ATRAUMATIC, NORMOCEPHALIC - Eye Exam Eye Exam: EOMI, PERRL Pupil Exam: NORMAL ACCOMODATION, PERRL - ENT Exam ENT Exam: Mucous Membranes Moist, Normal External Ear Exam, TM's Normal Bilaterally - Neck Exam Neck Exam: Full ROM, Normal Inspection - Respiratory Exam Respiratory Exam: Clear to Ausculation Bilateral, NORMAL BREATHING PATTERN. absent: Rales, Rhonchi, Wheezes - Cardiovascular Exam Cardiovascular Exam: REGULAR RHYTHM, RRR, +S1, +S2 - GI/Abdominal Exam GI & Abdominal Exam: Soft, Normal Bowel Sounds. absent: Distended, Tenderness - Extremities Exam Extremities Exam: Full ROM, Normal Inspection - Neurological Exam Neurological Exam: Alert, Awake, CN II-XII Intact, Oriented x3 - Psychiatric Exam Psychiatric exam: Normal Affect, Normal Mood - Skin Skin Exam: Intact, Normal Color Assessment and Plan - Assessment and Plan (Free Text) Assessment: 63 yo AA male with presentation for fevers up to 102.3 F in the past 24 hours when ID intially consulted where the patient initially presented to [facility] for unstable angina. Urinalysis not indicative for UTI. Chest X-rays negative. Some renal insufficiency. Bilirubin counts are elevated but has had similar values in two distant hospitalizations. LDH elevated. Leukocytosis. Influenza testing negative. Bush cultures pending. Monitor temperature trend. Patient denying any additional complaints at this time. Obtain abdominal X-ray. Patient without bowel movements for the past 2 days. Abdomen distended. Abdominal X-ray showing moderate constipation. Cultures negative at 48 hours so far. Continue Rocephin for now. Still with episodes of fevers up to 101.8 F in the past 72 hours. MRCP incidentally found bilateral pneumonia. Afebrile for the past 48 hours although temperature up to 100.0 F today. Patient making occasional cough and complains of sputum production. On IV Vancomycin and Zosyn. Treatment for pneumonia based on incidental findings from MRCP. Thank you for allowing me to participate in the care of the patient, we will follow with you.
[2018-08-29] MEDS ORDERED: Iohexol 350 MG/100 ML VIAL ONE (16:38)
--- NOTE | 2018-08-29 17:14 | CON ---
DATE: 08/29/2018 HEMATOLOGY CONSULTATION HISTORY OF PRESENT ILLNESS: This is a 63-year-old man who has 2 immunological problems. He comes in for possibly infection and he is being treated with vancomycin. PHYSICAL EXAMINATION: GENERAL: The patient is able to lie flat in bed. SKIN: No petechiae. No bruises. HEENT: Anicteric. NODES: Nonpalpable masses in the cervical, supraclavicular, or inguinal regions. LUNGS: Clear. HEART: S1 and S2. ABDOMEN: Shows no liver, no spleen. No tenderness. No rebound. No ascites. EXTREMITIES: No edema. CENTRAL NERVOUS EXAMINATION: No focal finding. LABORATORY FINDINGS: Show that when he first came to hospital, his hemoglobin was read at 11.9 and with an MCV of 84.9-85; that has gone down over the last few days and he has presently 9.5 hemoglobin with an MCV of 80. His ferritin was high but his iron saturation was low to 14% and the ferritin may be falsely elevated due to his inflammatory process. ASSESSMENT AND PLAN: In any event, I am going to give him a trial of iron infusion. I gave him Venofer today and he can get that over the next couple of days as well. The second thing is his monocytosis. On admission, his monocyte count has been about 14-18%, which is high and the issue here is whether he has an infiltrative process. So, I have ordered a flow cytometry to be performed and we will see how that shows up; that takes several days to get back. So, at present, I am going to start him on iron infusion while we evaluate him. Rg Brenner MD
[2018-08-30] MEDS: Piperacillin/Tazobact 3.375 gm 100 ML IVPB SCH ×3 (05:13→21:16)
[2018-08-30] MEDS: Pantoprazole 40 mg EC Tab PO SCH (05:16)
--- NOTE | 2018-08-30 09:19 | CP.PCM.PN ---
<Oskar Cheema - Last Filed: 08/30/18 11:43> Subjective - Date & Time of Evaluation Date of Evaluation: 08/30/18 Time of Evaluation: 09:14 - Subjective Subjective: Oskar Cheema, PGY-1, GI Progress Note for Dr. Velasquez Patient seen and evaluated at bedside. Patient had no acute overnight events. Patient was afebrile overnight. Patient has no symptoms at this time. Objective - Vital Signs/Intake and Output Vital Signs (last 24 hours): Temp Pulse Resp BP Pulse Ox 98.1 F 82 19 129/83 95 08/30/18 06:00 08/30/18 06:00 08/30/18 06:00 08/30/18 06:00 08/30/18 06:00 Intake and Output: 08/30/18 08/30/18 06:59 18:59 Intake Total 620 Output Total 200 Balance 420 - Medications Medications: Current Medications Acetaminophen (Tylenol 325mg Tab) 650 mg PO Q4H PRN PRN Reason: Temp>100.4*F Last Admin: 08/27/18 18:30 Dose: 650 mg Aspirin (Ecotrin) 81 mg PO DAILY TA Last Admin: 08/29/18 09:06 Dose: 81 mg Clonidine HCl (Catapres) 0.1 mg PO Q4 PRN PRN Reason: NEEDED FORSBP>160OR DBP>100 Folic Acid (Folic Acid) 1 mg PO DAILY TA Last Admin: 08/29/18 09:06 Dose: 1 mg Sodium Chloride (Sodium Chloride 0.45%) 1,000 mls @ 100 mls/hr IV .Q10H TA Last Admin: 08/29/18 22:06 Dose: Not Given Vancomycin HCl (Vancomycin 1gm) 1 gm in 250 mls @ 167 mls/hr IVPB DAILY [facility]; Protocol Last Admin: 08/29/18 09:06 Dose: 167 mls/hr Piperacillin Sod/Tazobactam Sod (Zosyn 3.375 In Ns 100ml) 100 mls @ 25 mls/hr IVPB Q8 TA; Protocol Last Admin: 08/30/18 05:13 Dose: 25 mls/hr Pantoprazole Sodium (Protonix Ec Tab) 40 mg PO 0600 TA Last Admin: 08/30/18 05:16 Dose: 40 mg - Labs Labs: 08/29/18 06:00 08/27/18 07:00 PT 15.9 SECONDS (9.4-12.5) H 08/26/18 11:30 INR 1.41 08/26/18 11:30 APTT 35.2 Seconds (26.9-38.3) 08/22/18 22:30 - Constitutional Appears: Well, Non-toxic, No Acute Distress - Head Exam Head Exam: ATRAUMATIC, NORMAL INSPECTION, NORMOCEPHALIC - Eye Exam Eye Exam: EOMI, PERRL - ENT Exam ENT Exam: Mucous Membranes Moist - Respiratory Exam Respiratory Exam: Clear to Auscultation Bilateral, NORMAL BREATHING PATTERN - Cardiovascular Exam Cardiovascular Exam: REGULAR RHYTHM, RRR, +S1, +S2 - GI/Abdominal Exam GI & Abdominal Exam: Normal Bowel Sounds, Soft. absent: Tenderness - Extremities Exam Extremities exam: Positive for: full ROM, normal inspection. Negative for: p edal edema - Neurological Exam Neurological exam: Alert, CN II-XII Intact, Oriented x3 - Skin Skin Exam: Dry, Intact, Normal Color Assessment and Plan - Assessment and Plan (Free Text) Assessment: 63 year old male with past medical history of glaucoma and arthritis presents with left rib pain starting 2-3 days ago. GI was consulted for anemia and possib le Gilbert's syndrome. #Anemia #Possible Gilbert's Syndrome #Glaucoma #Arthritis Plan: -Patient has anemia with Hgb decreased to 8s from 10-11s last week. Would consider hemodilution vs. GI bleed -Iron studies show %transferrin saturation of 12, likely signifying iron de ficiency anemia vs. chronic inflammatory state -LDH is elevated at 1125 likely signifying hemolytic anemia as the cause of the anemia. -Haptoglobin was low and retic count was high. Will evaluate with direct and indirect melinda test. -Hepatitis panel unremarkable and has positive Hepatitis A and B antibody. -Continue with clear liquid diet -INR worsened to 1.41 from 1.20. Bilirubin is now improving. -MRCP showed bibasilar lung consolidation, thus, patient could possibly have pneumonia complicated with sepsis leading to intrahepatic cholestasis. -Will hold off on EGD at this time. -Sonogram showed gallstones asymptomatic -Total Bilirubin is elevated at 2s, which likely does not signify Gilbert's syndrome. -Direct bilirubin is 0.7 Patient plan discussed with Dr. Velasquez. <Swapna Velasquez V - Last Filed: 08/30/18 23:52> Objective - Vital Signs/Intake and Output Vital Signs (last 24 hours): Temp Pulse Resp BP Pulse Ox 97.6 F 89 20 125/78 90 L 08/30/18 23:19 08/30/18 23:19 08/30/18 23:19 08/30/18 23:19 08/30/18 23:19 Intake and Output: 08/30/18 08/31/18 18:59 06:59 Intake Total 250 1500 Balance 250 1500 - Medications Medications: Current Medications Acetaminophen (Tylenol 325mg Tab) 650 mg PO Q4H PRN PRN Reason: Temp>100.4*F Last Admin: 08/27/18 18:30 Dose: 650 mg Aspirin (Ecotrin) 81 mg PO DAILY TA Last Admin: 08/30/18 10:28 Dose: 81 mg Clonidine HCl (Catapres) 0.1 mg PO Q4 PRN PRN Reason: NEEDED FORSBP>160OR DBP>100 Folic Acid (Folic Acid) 1 mg PO DAILY TA Last Admin: 08/30/18 10:28 Dose: 1 mg Sodium Chloride (Sodium Chloride 0.45%) 1,000 mls @ 100 mls/hr IV .Q10H TA Last Admin: 08/30/18 17:26 Dose: Not Given Vancomycin HCl (Vancomycin 1gm) 1 gm in 250 mls @ 167 mls/hr IVPB DAILY TA; Protocol Last Admin: 08/30/18 10:28 Dose: 167 mls/hr Piperacillin Sod/Tazobactam Sod (Zosyn 3.375 In Ns 100ml) 100 mls @ 25 mls/hr IVPB Q8 TA; Protocol Last Admin: 08/30/18 21:16 Dose: 25 mls/hr Pantoprazole Sodium (Protonix Ec Tab) 40 mg PO 0600 TA Last Admin: 08/30/18 05:16 Dose: 40 mg - Labs Labs: 08/29/18 06:00 08/27/18 07:00 PT 15.8 SECONDS (9.4-12.5) H 08/30/18 11:30 INR 1.40 08/30/18 11:30 APTT 35.2 Seconds (26.9-38.3) 08/22/18 22:30 Attending/Attestation - Attestation I have personally seen and examined this patient.: Yes I have fully participated in the care of the patient.: Yes I have reviewed all pertinent clinical information, including history, physical exam and plan: Yes Notes (Text): p 08/30/18 23:51
[2018-08-30] MEDS: Vancomycin 1gm in NS 250ml 1 GM/250 ML BAG IVPB SCH (10:28)
[2018-08-30] MEDS: Sodium Chloride 0.45% 1,000 ML IV SCH ×2 (10:30→17:26)
[2018-08-30 11:47] LABS: INR 1.4; PROTHROMBIN TIME 15.8 SECONDS (9.4-12.5)
--- NOTE | 2018-08-30 12:15 | CT ---
Date of service: 08/29/2018 PROCEDURE: CT Chest, Abdomen and Pelvis with intravenous contrast HISTORY: r/o bleed hematoma; source of infection COMPARISON: None available. TECHNIQUE: IV dose administered: Radiation dose: Total exam DLP = 922.78 mGy-cm. This CT exam was performed using one or more of the following dose reduction techniques: Automated exposure control, adjustment of the mA and/or kV according to patient size, and/or use of iterative reconstruction technique. FINDINGS: CT CHEST WITH CONTRAST: LUNGS: Extensive bibasilar consolidation with associated pleural effusions. MEDIASTINUM: Unremarkable. Normal caliber aorta and pulmonary arterial trunk. No aortic dissection. Normal size heart. LYMPH NODES: Unremarkable. PLEURA: As above. BONES: Unremarkable. OTHER FINDINGS: None. CT ABDOMEN AND PELVIS: LIVER: Unremarkable. No gross lesion or ductal dilatation. GALLBLADDER AND BILE DUCTS: Unremarkable. PANCREAS: Unremarkable. No gross lesion or ductal dilatation. SPLEEN: Unremarkable. ADRENALS: Unremarkable. No mass. KIDNEYS AND URETERS: Multiple bilateral focal renal scars. No hydronephrosis. No solid mass. VASCULATURE: No aortic atherosclerotic calcification or mural plaque present. Unremarkable. No aortic aneurysm. BOWEL: Unremarkable. No obstruction. No gross mural thickening. APPENDIX: Normal appendix. PERITONEUM: Unremarkable. No free fluid. No free air. LYMPH NODES: Unremarkable. No enlarged lymph nodes. BLADDER: Unremarkable. REPRODUCTIVE: Unremarkable. BONES: No acute fracture. OTHER FINDINGS: None. IMPRESSION: Extensive bibasilar consolidation with associated pleural effusions.
--- NOTE | 2018-08-30 13:07 | PN ---
DATE OF EVALUATION: 08/29/2018 SUBJECTIVE: This is a 63-year-old male who was examined at the [facility], on the cardiac phelan, on the morning of 08/29/2018. Case was reviewed with nurse, Wandy Cohn, registered nurse. The patient remains in normal sinus rhythm on the hall monitor. He does complain of occasional cough productive of yellow sputum. He is now being treated with parenteral Zosyn and IV vancomycin for x-ray evidence of pneumonia. He denied any shaking chills. PHYSICAL EXAMINATION: VITAL SIGNS: Temperature 99.8 with respirations of 20, pulse 82 and blood pressure 134/71, pulse ox was 96% on 2 liters nasal O2. HEAD: Normocephalic, atraumatic. EYES: No icterus. EARS: Clear. THROAT: Noninjected. NECK: Supple. HEART: Regular S1, S2. LUNGS: Bibasilar rhonchi. ABDOMEN: Soft. EXTREMITIES: No edema. SKIN: Without rash. NEUROLOGIC: Intact. PSYCHOLOGIC: Alert. VASCULAR: Legs warm to touch. LABORATORY DATA: White count 12,300, hemoglobin 8.8, hematocrit 25.5, platelets 273,000. PT/INR 1.41, PTT 35.2. Urinalysis x2 unremarkable and hepatitis A antibody was positive with a nonreactive IgM antibody and influenza A and B are negative. IMPRESSION: This is a 63-year-old male admitted with chest pain who underwent echo and stress test with unremarkable findings and has had course complicated by leukocytosis, fever and bibasilar pneumonia as well as acute on chronic anemia, iron deficiency component and questionable hemolysis. Also the patient has a newly noted hypertension. PLAN: The plan as discussed with himself, nursing and co-consultants will be to add clonidine 0.1 mg p.o. every 4 hours p.r.n. accelerated hypertension if his systolic blood pressure should be greater than 160 or his diastolic blood pressure should be greater than 100. He will continue on Ecotrin 81 mg p.o. daily and folic acid 1 mg p.o. daily as well as Protonix 40 mg p.o. daily. He continues on 0.45 saline at 100 mL/hour for fluid hydration in the setting of febrile illness and Tylenol 650 p.o. every 4 hours will be continued p.r.n. pain or temperature greater than 101 as well as vancomycin 1 g IV every 24 hours and Zosyn 3.375 g IV every 8 hours. Given his hematological issues, I will call Dr. Brenner from Hematology/Oncology for completeness sake and he is awaiting a CT of chest, abdomen and pelvis given his leukocytosis, fevers and anemia to rule out underlying malignancy. As discussed, he will need parenteral antibiotics. Duration to be decided by Dr. Ansari given his complicated pneumonia and greater than 35 minutes was spent in the care management and review of labs, orders and x-rays and discussion of this patient with himself, nursing, Infectious Disease, GI and we will await a Hematology consult. All questions were answered. Lizzy Alvares MD MTDD
--- NOTE | 2018-08-30 13:20 | PN ---
DATE OF EVALUATION: 08/30/2018 SUBJECTIVE: This 63-year-old male was examined at bedside on the cardiac phelan of the [facility] on the morning of 08/30/2018. His case was reviewed in detail with his nurse, Awa Cunningham, registered nurse. The patient was seen earlier by Dr. Rg Brenner from Hematology/Oncology. He has recommended a dose of IV Venofer and has ordered a flow cytometry study for completeness sake. The patient is in the process of completing chest, abdomen and pelvic CT and is n.p.o. for upper endoscopy later today. PHYSICAL EXAMINATION: VITAL SIGNS: On review of his vital signs, he has he has had no fever thus far today and at present temperature is 98.1 and he remains in normal sinus rhythm on the cardiac surgeon. Blood pressure 129/83, pulse 82 and respirations 19 with a pulse ox of 95% on 2 liters nasal O2. HEAD: Normocephalic, atraumatic. EYES: No icterus. EARS: Clear. THROAT: Noninjected. NECK: Supple. HEART: S1 and S2. LUNGS: Clear. ABDOMEN: Soft. EXTREMITIES: No edema. SKIN: Without rash. NEUROLOGIC: Intact. PSYCHOLOGIC: Alert. VASCULAR: Legs warm to touch. LABORATORY DATA: White count 12,300, previously 10,900 with a hemoglobin of 8.8, previously 9.5; hematocrit 25.2 and platelets of 273,000. Sodium 140; potassium 3.6; chloride 108; bicarb 25; BUN 14; creatinine 1.1; random blood sugar 113; bilirubin 2.9, previously 3.5; ferritin 1310 with a direct bilirubin of 0.7; AST 86; ALT 36; alk phos 106. IMPRESSION: This is a 63-year-old male with multiple medical problems including resolved chest pain, iron-deficiency anemia, acute on chronic anemia, rule out hemolysis, leukocytosis in the setting of febrile illness with newly noted bibasilar pneumonia, intermittent accelerated hypertension. PLAN: To continue clonidine p.r.n. accelerated hypertension, Ecotrin, folic acid, Protonix, 0.45 saline, Tylenol, vancomycin and IV Zosyn. He is n.p.o. for endoscopy. I will check the results of his CT of chest, abdomen and pelvis. Also will repeat comprehensive metabolic panel, INR and CBC for a.m. Based on his clinical results, additional diagnostic workup and testing will be entertained. I will discuss duration of parenteral Zosyn and vancomycin with Dr. Ansari from Infectious Disease. Greater than 35 minutes was spent in the care management, adjustment of orders, medication and discussion of this patient with Infectious Disease, Hematology/Oncology, Gastroenterology and the patient as well as nurse, Octavio. All questions were answered. Lizzy Alvares MD MTDZenon
--- NOTE | 2018-08-30 17:14 | CP.PCM.PN ---
Subjective - Date & Time of Evaluation Date of Evaluation: 08/30/18 Time of Evaluation: 15:00 - Subjective Subjective: Infectious Disease Follow Up: August 30, 2018 63 yo AA male with initial presentation for left sided stabbing chest pain while shopping the day prior to admission. The patient has a PMHx of Glaucoma and Degenerative Arthritis. He is on medical disability for a right leg injury that occurred at work several years ago. ID called for fevers up to 102.3 F in the past 24 hours. The patient had clear Chest X-rays, unremarkable urinalysis, and mild-mod leukocytosis. Bush cultures taken when fever up to 102.3 F. Occassional spikes of fever throughout the day yesterday and borderline temperatures today. Cultures negative so far at 48 hours. Patient is denying complaints. Abdominal X-ray showing moderate constipation. MRCP was done... strangely enough, incidental findings/signs of a bilateral pneumonia seen on the MRCP. Patient without fever for the last 72 hours with temperature up to 100.0 F. A urine culture is showing <10,000 growth of gram positive cocci. No specific cause for the fevers found as of yet. Patient had complaints of cough and some sputum production. No specific new complaints. Temperature of 98.1 F today. Objective - Vital Signs/Intake and Output Vital Signs (last 24 hours): Temp Pulse Resp BP Pulse Ox 98 F 87 20 141/100 H 95 08/30/18 12:00 08/30/18 13:58 08/30/18 12:00 08/30/18 12:00 08/30/18 06:00 Intake and Output: 08/30/18 08/30/18 06:59 18:59 Intake Total 620 Output Total 200 Balance 420 - Medications Medications: Current Medications Acetaminophen (Tylenol 325mg Tab) 650 mg PO Q4H PRN PRN Reason: Temp>100.4*F Last Admin: 08/27/18 18:30 Dose: 650 mg Aspirin (Ecotrin) 81 mg PO DAILY [facility] Last Admin: 08/30/18 10:28 Dose: 81 mg Clonidine HCl (Catapres) 0.1 mg PO Q4 PRN PRN Reason: NEEDED FORSBP>160OR DBP>100 Folic Acid (Folic Acid) 1 mg PO DAILY [facility] Last Admin: 08/30/18 10:28 Dose: 1 mg Sodium Chloride (Sodium Chloride 0.45%) 1,000 mls @ 100 mls/hr IV .Q10H TA Last Admin: 08/30/18 10:30 Dose: 100 mls/hr Vancomycin HCl (Vancomycin 1gm) 1 gm in 250 mls @ 167 mls/hr IVPB DAILY TA; Protocol Last Admin: 08/30/18 10:28 Dose: 167 mls/hr Piperacillin Sod/Tazobactam Sod (Zosyn 3.375 In Ns 100ml) 100 mls @ 25 mls/hr IVPB Q8 TA; Protocol Last Admin: 08/30/18 13:20 Dose: 25 mls/hr Pantoprazole Sodium (Protonix Ec Tab) 40 mg PO 0600 TA Last Admin: 08/30/18 05:16 Dose: 40 mg - Labs Labs: 08/29/18 06:00 08/27/18 07:00 PT 15.8 SECONDS (9.4-12.5) H 08/30/18 11:30 INR 1.40 08/30/18 11:30 APTT 35.2 Seconds (26.9-38.3) 08/22/18 22:30 - Constitutional Appears: Non-toxic, No Acute Distress, Chronically Ill - Head Exam Head Exam: ATRAUMATIC, NORMOCEPHALIC - Eye Exam Eye Exam: EOMI, PERRL Pupil Exam: NORMAL ACCOMODATION, PERRL - ENT Exam ENT Exam: Mucous Membranes Moist, Normal External Ear Exam, TM's Normal Bilaterally - Neck Exam Neck Exam: Full ROM, Normal Inspection - Respiratory Exam Respiratory Exam: Clear to Ausculation Bilateral, NORMAL BREATHING PATTERN. absent: Rales, Rhonchi, Wheezes - Cardiovascular Exam Cardiovascular Exam: REGULAR RHYTHM, RRR, +S1, +S2 - GI/Abdominal Exam GI & Abdominal Exam: Soft, Normal Bowel Sounds. absent: Distended, Tenderness - Extremities Exam Extremities Exam: Full ROM, Normal Inspection - Neurological Exam Neurological Exam: Alert, Awake, CN II-XII Intact, Oriented x3 - Psychiatric Exam Psychiatric exam: Normal Affect, Normal Mood - Skin Skin Exam: Intact, Normal Color Assessment and Plan - Assessment and Plan (Free Text) Assessment: 63 yo AA male with presentation for fevers up to 102.3 F in the past 24 hours when ID intially consulted where the patient initially presented to [facility] for unst able angina. Urinalysis not indicative for UTI. Chest X-rays negative. Some renal insufficiency. Bilirubin counts are elevated but has had similar values in two distant hospitalizations. LDH elevated. Leukocytosis. Influenza testing negative. Bush cultures pending. Monitor temperature trend. Patient denying any additional complaints at this time. Obtain abdominal X-ray. Patient without bowel movements for the past 2 days. Abdomen distended. Abdominal X-ray showing moderate constipation. Cultures negative at 48 hours so far. Continue Rocephin for now. Still with episodes of fevers up to 101.8 F in the past 72 hours. MRCP incidentally found bilateral pneumonia. Afebrile for the past 48 hours although temperature up to 100.0 F today. Patient making occasional cough and complains of sputum production. On IV Vancomycin and Zosyn. Treatment for pneumonia based on incidental findings from MRCP. If patient remains afebrile, can consider a switch to oral Clindamycin 300mg PO q8hrs and Omnicef 300mg BID for 7-10 days more. Thank you for allowing me to participate in the care of the patient, we will follow with you.
[2018-08-31] MEDS: Pantoprazole 40 mg EC Tab PO SCH (05:29)
[2018-08-31] MEDS: Piperacillin/Tazobact 3.375 gm 100 ML IVPB SCH ×3 (05:29→22:05)
[2018-08-31 06:38] LABS: INR 1.34; PROTHROMBIN TIME 15.1 SECONDS (9.4-12.5)
[2018-08-31 06:41] LABS: BASO # 0.06 K/mm3 (0.0-2.0); BASO % 0.6 % (0.0-3.0); EOS # 0.4 (0.0-0.7); EOS % 4.1 % (1.5-5.0); HEMOGLOBIN 8.4 g/dL (14.0-18.0); LYMPH # 2.2 (1.2-3.4); LYMPH % 20.6 % (22.0-35.0); MEAN CELL VOLUME 80.5 fl (80.0-105.0); MEAN CORPUSCULAR HEMOGLOBIN 27.7 pg (25.0-35.0); MEAN CORPUSCULAR HGB CONC 34.4 g/dl (31.0-37.0); MEAN PLATELET VOLUME 9.5 fl (7.0-11.0); MONO % 9.1 % (1.0-6.0); RBC 3.03 10^6/uL (3.5-6.1); RED CELL DISTRIBUTION WIDTH 20.3 % (11.5-14.5); WHITE BLOOD COUNT 10.7 10^3/uL (4.5-11.0)
[2018-08-31 06:49] LABS: ALB/GLOB RATIO 0.7 (1.1-1.8); ALBUMIN 3.3 g/dL (3.0-4.8); ALT/SGPT 34 U/L (7-56); AST/SGOT 64 U/L (17-59); BLOOD UREA NITROGEN 9 mg/dL (7-21); CALCIUM 8.7 mg/dL (8.4-10.5); GFR NON-AFRICAN AMERICAN > 60
[2018-08-31] MEDS: Vancomycin 1gm in NS 250ml 1 GM/250 ML BAG IVPB SCH (10:13)
[2018-08-31] MEDS: Sodium Chloride 0.45% 1,000 ML IV SCH ×4 (10:18→23:48)
--- NOTE | 2018-08-31 11:00 | CP.PCM.PN ---
Subjective - Date & Time of Evaluation Date of Evaluation: 08/31/18 Time of Evaluation: 10:57 - Subjective Subjective: Oskar Cheema, PGY-1, GI Progress Note for Dr. Velasquez Patient seen and evaluated at bedside. Patient had no acute overnight events. Patient denies any acute symptoms including nausea, vomiting, constipation, diarrhea, abdominal pain, chest pain, shortness of breath, fever. Objective - Vital Signs/Intake and Output Vital Signs (last 24 hours): Temp Pulse Resp BP Pulse Ox 98 F 75 18 137/89 96 08/31/18 05:57 08/31/18 05:57 08/31/18 05:57 08/31/18 05:57 08/31/18 05:57 Intake and Output: 08/31/18 08/31/18 06:59 18:59 Intake Total 2704 Output Total 400 Balance 2304 - Medications Medications: Current Medications Acetaminophen (Tylenol 325mg Tab) 650 mg PO Q4H PRN PRN Reason: Temp>100.4*F Last Admin: 08/27/18 18:30 Dose: 650 mg Aspirin (Ecotrin) 81 mg PO DAILY [facility] Last Admin: 08/31/18 10:14 Dose: 81 mg Clonidine HCl (Catapres) 0.1 mg PO Q4 PRN PRN Reason: NEEDED FORSBP>160OR DBP>100 Folic Acid (Folic Acid) 1 mg PO DAILY [facility] Last Admin: 08/31/18 10:13 Dose: 1 mg Sodium Chloride (Sodium Chloride 0.45%) 1,000 mls @ 100 mls/hr IV .Q10H TA Last Admin: 08/31/18 10:18 Dose: 100 mls/hr Vancomycin HCl (Vancomycin 1gm) 1 gm in 250 mls @ 167 mls/hr IVPB DAILY TA; Protocol Last Admin: 08/31/18 10:13 Dose: 167 mls/hr Piperacillin Sod/Tazobactam Sod (Zosyn 3.375 In Ns 100ml) 100 mls @ 25 mls/hr IVPB Q8 TA; Protocol Last Admin: 08/31/18 05:29 Dose: 25 mls/hr Pantoprazole Sodium (Protonix Ec Tab) 40 mg PO 0600 TA Last Admin: 08/31/18 05:29 Dose: 40 mg - Labs Labs: 08/31/18 06:00 08/31/18 06:00 PT 15.1 SECONDS (9.4-12.5) H 08/31/18 06:00 INR 1.34 08/31/18 06:00 APTT 35.2 Seconds (26.9-38.3) 08/22/18 22:30 - Constitutional Appears: Well, Non-toxic, No Acute Distress - Head Exam Head Exam: ATRAUMATIC, NORMAL INSPECTION, NORMOCEPHALIC - Eye Exam Eye Exam: EOMI, PERRL - ENT Exam ENT Exam: Mucous Membranes Moist - Respiratory Exam Respiratory Exam: Clear to Auscultation Bilateral, NORMAL BREATHING PATTERN - Cardiovascular Exam Cardiovascular Exam: REGULAR RHYTHM, RRR, +S1, +S2 - GI/Abdominal Exam GI & Abdominal Exam: Normal Bowel Sounds, Soft. absent: Tenderness - Extremities Exam Extremities exam: Positive for: full ROM, normal inspection. Negative for: p edal edema - Neurological Exam Neurological exam: Alert, CN II-XII Intact, Oriented x3 - Skin Skin Exam: Dry, Intact, Normal Color Assessment and Plan - Assessment and Plan (Free Text) Assessment: 63 year old male with past medical history of glaucoma and arthritis presents with left rib pain starting 2-3 days ago. GI was consulted for anemia and possi ble Gilbert's syndrome. #Anemia #Possible Gilbert's Syndrome #Glaucoma #Arthritis Plan: -Patient has anemia with Hgb decreased to 8s from 10-11s last week. Would consider hemodilution vs. GI bleed -Iron studies show %transferrin saturation of 12, likely signifying iron de ficiency anemia vs. chronic inflammatory state -LDH is elevated at 1125 likely signifying hemolytic anemia as the cause of the anemia. -Haptoglobin was low and retic count was high. Direct Sam test was negative. -Hepatitis panel unremarkable and has positive Hepatitis A and B antibody. -Continue with clear liquid diet -INR improved to 1.34. Bilirubin is now improving. -MRCP showed bibasilar lung consolidation, thus, patient could possibly have pneumonia complicated with sepsis leading to intrahepatic cholestasis. -Bush CT shows bibasilar lung consolidation but no acute intraabdominal findings. -Will hold off on EGD at this time due to risk of aspiration -Sonogram showed gallstones asymptomatic -Total Bilirubin is elevated at 1.9, which likely does not signify Gilbert's syndrome. -Direct bilirubin is 0.7 Patient plan discussed with Dr. Velasquez.
[2018-08-31] MEDS ORDERED: Potassium Chloride 20 mEq ER Tab PO ONE (11:17)
--- NOTE | 2018-08-31 12:58 | PN ---
DATE: 08/31/2018 SUBJECTIVE: This 63-year-old male was evaluated on the [facility] on the morning of 08/31/2018. I did review this case in detail with Dr. Rg Brenner from Hematology/Oncology. Despite having an IV Venofer infusion yesterday, he is more anemic today. Hemoglobin was 8.8 and is presently 8.4 with a hematocrit of 24.4 and no obvious source of GI bleeding. The patient's upper endoscopy was placed on hold by Dr. Swapna Velasquez from GI because of concerns of risk of aspiration in the setting of an extensive bibasilar pneumonia. PHYSICAL EXAMINATION: Today, VITAL SIGNS: He is in normal sinus rhythm on security monitor, temperature is 98, respirations 18, pulse 75 and blood pressure 137/89 with a pulse ox of 96% on 2 liters nasal O2. HEENT: Head: Normocephalic, atraumatic. Eyes: No icterus. Ears: Clear. Throat: Noninjected. NECK: Supple. HEART: S1, S2. LUNGS: With bibasilar rhonchi and occasional expiratory wheezing that improved with coughing. ABDOMEN: Soft. EXTREMITIES: No edema. SKIN: Without rash. NEUROLOGICAL: Intact. PSYCHOLOGICAL: Alert. VASCULAR: Legs warm to touch. LABORATORY DATA: White count 10,700, hemoglobin 8.4, hematocrit 24.4, platelets 267,000. PT/INR 1.34. Sodium 141, K 3.5, chloride 109, bicarb 25, BUN 9, creatinine 1.2, random blood sugar 89, bilirubin 1.9, AST 64, ALT 34, alk phos 108. Flow cytometry testing sent and report pending. CT of chest, abdomen and pelvis was reviewed. It shows extensive bibasilar pneumonic infiltrates but no evidence of underlying malignancy. IMPRESSION: A 63-year-old male, now with bibasilar pneumonia and comorbidities of iron-deficiency anemia, worsening anemia and questionable hemolytic anemia with leukocytosis now improving, febrile illness now improving, and hypokalemia. PLAN: At present is to continue clonidine 0.1 mg p.o. every 4 hours, p.r.n. accelerated hypertension if systolic blood pressure should be greater than 160 or diastolic blood pressure should be greater than 100. He will continue on Ecotrin 81 mg p.o. daily, folic acid 1 mg p.o. daily. I will order iron sucrose 200 mg IV piggyback x1 dose, Protonix 40 mg p.o. daily, 0.45 saline at 100 mL per hour, Tylenol 650 p.o. every 4 hours p.r.n. fever or pain, vancomycin 1 g IV every 24 hours and Zosyn 3.375 g IV every 8 hours. As discussed with Dr. Brenner, he will have a repeat comprehensive metabolic panel, CBC and INR in the a.m. Stool for occult blood has been requested. He will have a bone marrow completed by Dr. Brenner as outlined and based on clinical progress, additional diagnostic workup and testing will be entertained. All of the above was reviewed in detail with the patient and nursing as well as Dr. Brenner from Hematology/Oncology. Greater than 35 minutes was spent in the care management, review of labs, orders, x-rays and outlining of orders for this patient today. All questions were answered. Lizzy Alvares MD
[2018-08-31] MEDS ORDERED: Lidocaine 1% Inj (20ml) IJ STA (13:40)
--- NOTE | 2018-08-31 16:23 | CP.PCM.PN ---
Subjective - Date & Time of Evaluation Date of Evaluation: 08/31/18 Time of Evaluation: 15:00 - Subjective Subjective: Infectious Disease Follow Up: August 31, 2018 63 yo AA male with initial presentation for left sided stabbing chest pain while shopping the day prior to admission. The patient has a PMHx of Glaucoma and Degenerative Arthritis. He is on medical disability for a right leg injury that occurred at work several years ago. ID called for fevers up to 102.3 F in the past 24 hours. The patient had clear Chest X-rays, unremarkable urinalysis, and mild-mod leukocytosis. Bush cultures taken when fever up to 102.3 F. Occassional spikes of fever throughout the day yesterday and borderline temperatures today. Cultures negative so far at 48 hours. Patient is denying complaints. Abdominal X-ray showing moderate constipation. MRCP was done... strangely enough, incidental findings/signs of a bilateral pneumonia seen on the MRCP. Patient without fever for the last 72 hours with temperature up to 100.0 F. A urine culture is showing <10,000 growth of gram positive cocci. No specific cause for the fevers found as of yet. Patient had complaints of cough and some sputum production. No specific new complaints. Temperature of 98.0 F today. WBC is 10.7. Going for a possible EGD today according to the notes. Objective - Vital Signs/Intake and Output Vital Signs (last 24 hours): Temp Pulse Resp BP Pulse Ox 97.9 F 72 20 120/88 96 08/31/18 12:00 08/31/18 12:00 08/31/18 12:00 08/31/18 12:00 08/31/18 05:57 Intake and Output: 08/31/18 08/31/18 06:59 18:59 Intake Total 2704 Output Total 400 Balance 2304 - Medications Medications: Current Medications Acetaminophen (Tylenol 325mg Tab) 650 mg PO Q4H PRN PRN Reason: Temp>100.4*F Last Admin: 08/27/18 18:30 Dose: 650 mg Aspirin (Ecotrin) 81 mg PO DAILY TA Last Admin: 08/31/18 10:14 Dose: 81 mg Clonidine HCl (Catapres) 0.1 mg PO Q4 PRN PRN Reason: NEEDED FORSBP>160OR DBP>100 Folic Acid (Folic Acid) 1 mg PO DAILY [facility] Last Admin: 08/31/18 10:13 Dose: 1 mg Sodium Chloride (Sodium Chloride 0.45%) 1,000 mls @ 100 mls/hr IV .Q10H TA Last Admin: 08/31/18 10:18 Dose: 100 mls/hr Piperacillin Sod/Tazobactam Sod (Zosyn 3.375 In Ns 100ml) 100 mls @ 25 mls/hr IVPB Q8 TA; Protocol Last Admin: 08/31/18 05:29 Dose: 25 mls/hr Pantoprazole Sodium (Protonix Ec Tab) 40 mg PO 0600 [facility] Last Admin: 08/31/18 05:29 Dose: 40 mg - Labs Labs: 08/31/18 06:00 08/31/18 06:00 PT 15.1 SECONDS (9.4-12.5) H 08/31/18 06:00 INR 1.34 08/31/18 06:00 APTT 35.2 Seconds (26.9-38.3) 08/22/18 22:30 - Constitutional Appears: Non-toxic, No Acute Distress, Chronically Ill - Head Exam Head Exam: ATRAUMATIC, NORMOCEPHALIC - Eye Exam Eye Exam: EOMI, PERRL Pupil Exam: NORMAL ACCOMODATION, PERRL - ENT Exam ENT Exam: Mucous Membranes Moist, Normal External Ear Exam, TM's Normal Bilaterally - Neck Exam Neck Exam: Full ROM, Normal Inspection - Respiratory Exam Respiratory Exam: Clear to Ausculation Bilateral, NORMAL BREATHING PATTERN. absent: Rales, Rhonchi, Wheezes - Cardiovascular Exam Cardiovascular Exam: REGULAR RHYTHM, RRR, +S1, +S2 - GI/Abdominal Exam GI & Abdominal Exam: Soft, Normal Bowel Sounds. absent: Distended, Tenderness - Extremities Exam Extremities Exam: Full ROM, Normal Inspection - Neurological Exam Neurological Exam: Alert, Awake, CN II-XII Intact, Oriented x3 - Psychiatric Exam Psychiatric exam: Normal Affect, Normal Mood - Skin Skin Exam: Intact, Normal Color Assessment and Plan - Assessment and Plan (Free Text) Assessment: 63 yo AA male with presentation for fevers up to 102.3 F in the past 24 hours when ID intially consulted where the patient initially presented to [facility] for unstable angina. Urinalysis not indicative for UTI. Chest X-rays negative. Some renal insufficiency. Bilirubin counts are elevated but has had similar values in two distant hospitalizations. LDH elevated. Leukocytosis. Influenza testing negative. Bush cultures pending. Monitor temperature trend. Patient denying any additional complaints at this time. Obtain abdominal X-ray. Patient without bowel movements for the past 2 days. Abdomen distended. Abdominal X-ray showing moderate constipation. Cultures negative at 48 hours so far. Continue Rocephin for now. MRCP incidentally found bilateral pneumonia. Afebrile for the past 48 hours today. Patient cough and sputum production resolved. On IV Vancomycin and Zosyn. Treatment for pneumonia based on incidental findings from MRCP. Temperature of 98.0 F. Possible EGD today. If patient remains afebrile, can consider a switch to oral Clindamycin 300mg PO q8hrs and Omnicef 300mg BID for 7-10 days more. Thank you for allowing me to participate in the care of the patient, we will follow with you.
[2018-09-01] MEDS: Piperacillin/Tazobact 3.375 gm 100 ML IVPB SCH ×3 (05:06→23:07)
[2018-09-01] MEDS: Pantoprazole 40 mg EC Tab PO SCH (05:06)
[2018-09-01 06:41] LABS: BASO # 0.05 K/mm3 (0.0-2.0); BASO % 0.4 % (0.0-3.0); EOS # 0.4 (0.0-0.7); EOS % 3.2 % (1.5-5.0); HEMOGLOBIN 8.9 g/dL (14.0-18.0); LYMPH # 1.8 (1.2-3.4); MEAN CELL VOLUME 80.6 fl (80.0-105.0); MEAN CORPUSCULAR HEMOGLOBIN 27.9 pg (25.0-35.0); MEAN CORPUSCULAR HGB CONC 34.6 g/dl (31.0-37.0); MEAN PLATELET VOLUME 9.3 fl (7.0-11.0); MONO # 1.2 (0.1-0.6); RBC 3.19 10^6/uL (3.5-6.1); RED CELL DISTRIBUTION WIDTH 20.3 % (11.5-14.5); WHITE BLOOD COUNT 11.5 10^3/uL (4.5-11.0)
[2018-09-01 06:46] LABS: INR 1.35; PROTHROMBIN TIME 15.2 SECONDS (9.4-12.5)
[2018-09-01 08:04] LABS: ALB/GLOB RATIO 0.7 (1.1-1.8); ALBUMIN 3.4 g/dL (3.0-4.8); ALT/SGPT 27 U/L (7-56); AST/SGOT 84 U/L (17-59); BLOOD UREA NITROGEN 10 mg/dL (7-21); CALCIUM 8.8 mg/dL (8.4-10.5); GFR NON-AFRICAN AMERICAN 56
--- NOTE | 2018-09-01 10:50 | CP.PCM.PN ---
Subjective - Date & Time of Evaluation Date of Evaluation: 09/01/18 Time of Evaluation: 10:48 - Subjective Subjective: Oskar Cheema, PGY-1, GI Progress Note for Dr. Velasquez Patient seen and evaluated at bedside. Patient had no acute overnight events. Patient denies any acute symptoms including nausea, vomiting, constipation, diarrhea, abdominal pain, chest pain, shortness of breath, fever. Objective - Vital Signs/Intake and Output Vital Signs (last 24 hours): Temp Pulse Resp BP Pulse Ox 98.6 F 89 18 123/73 96 09/01/18 06:00 09/01/18 06:00 09/01/18 06:00 09/01/18 06:00 09/01/18 00:01 Intake and Output: 09/01/18 09/01/18 06:59 18:59 Intake Total 2643 Output Total 1100 Balance 1543 - Medications Medications: Current Medications Acetaminophen (Tylenol 325mg Tab) 650 mg PO Q4H PRN PRN Reason: Temp>100.4*F Last Admin: 08/27/18 18:30 Dose: 650 mg Aspirin (Ecotrin) 81 mg PO DAILY [facility] Last Admin: 09/01/18 09:56 Dose: 81 mg Clonidine HCl (Catapres) 0.1 mg PO Q4 PRN PRN Reason: NEEDED FORSBP>160OR DBP>100 Folic Acid (Folic Acid) 1 mg PO DAILY [facility] Last Admin: 09/01/18 09:56 Dose: 1 mg Sodium Chloride (Sodium Chloride 0.45%) 1,000 mls @ 100 mls/hr IV .Q10H [facility] Last Admin: 08/31/18 23:48 Dose: 100 mls/hr Piperacillin Sod/Tazobactam Sod (Zosyn 3.375 In Ns 100ml) 100 mls @ 25 mls/hr IVPB Q8 [facility]; Protocol Last Admin: 09/01/18 05:06 Dose: 25 mls/hr Pantoprazole Sodium (Protonix Ec Tab) 40 mg PO 0600 [facility] Last Admin: 09/01/18 05:06 Dose: 40 mg - Labs Labs: 09/01/18 06:15 09/01/18 06:15 PT 15.2 SECONDS (9.4-12.5) H 09/01/18 06:15 INR 1.35 09/01/18 06:15 APTT 35.2 Seconds (26.9-38.3) 08/22/18 22:30 - Constitutional Appears: Well, Non-toxic, No Acute Distress - Head Exam Head Exam: ATRAUMATIC, NORMAL INSPECTION, NORMOCEPHALIC - Eye Exam Eye Exam: EOMI, PERRL - ENT Exam ENT Exam: Mucous Membranes Moist - Respiratory Exam Respiratory Exam: Clear to Auscultation Bilateral, NORMAL BREATHING PATTERN - Cardiovascular Exam Cardiovascular Exam: REGULAR RHYTHM, RRR, +S1, +S2 - GI/Abdominal Exam GI & Abdominal Exam: Normal Bowel Sounds, Soft. absent: Tenderness - Extremities Exam Extremities exam: Positive for: full ROM, normal inspection. Negative for: pedal edema - Neurological Exam Neurological exam: Alert, CN II-XII Intact, Oriented x3 - Skin Skin Exam: Dry, Intact, Normal Color Assessment and Plan - Assessment and Plan (Free Text) Assessment: 63 year old male with past medical history of glaucoma and arthritis presents with left rib pain starting 2-3 days ago. GI was consulted for anemia and possible Gilbert's syndrome. #Anemia #Possible Gilbert's Syndrome #Glaucoma #Arthritis Plan: -Patient has anemia with Hgb decreased to 8s from 10-11s last week. Would consider hemodilution vs. GI bleed -Iron studies show %transferrin saturation of 12, likely signifying iron deficiency anemia vs. chronic inflammatory state -LDH is elevated at 1125 likely signifying hemolytic anemia as the cause of the anemia. -Haptoglobin was low and retic count was high. Direct Sam test was negative. -Hepatitis panel unremarkable and has positive Hepatitis A and B antibody. -Progressed to HHD -INR improved to 1.35. Bilirubin is stable. -MRCP showed bibasilar lung consolidation, thus, patient could possibly have pneumonia complicated with sepsis leading to intrahepatic cholestasis. -Bush CT shows bibasilar lung consolidation but no acute intraabdominal findings. -Will hold off on EGD at this time due to risk of aspiration -Sonogram showed gallstones asymptomatic -Total Bilirubin is elevated at 1.9, which likely does not signify Gilbert's syndrome. -Direct bilirubin is 0.7 Patient plan discussed with Dr. Velasquez.
--- NOTE | 2018-09-01 15:42 | PN ---
DATE: 09/01/2018 SUBJECTIVE: This 63-year-old male remains hospitalized on the cardiac [facility] of the [facility] on the morning of 09/01/2018. He is currently receiving IV Zosyn for bibasilar pneumonia and is awaiting a bone marrow biopsy with Dr. Rg Brenner MD Hematology/Oncology because of the acute on chronic anemia with an iron-deficiency and hemolytic component. The patient's EGD was cancelled due to high risk of aspiration given his bibasilar pneumonia. I reviewed the patient's vital signs and there have been no fevers in the past 48 hours; however, because of worsening anemia and significant pneumonia, he remains hospitalized on parenteral antibiotics under the direction of Dr. Darrion Ansari from Infectious Disease. live out nanny shows normal sinus rhythm. PHYSICAL EXAMINATION: VITAL SIGNS: Temperature is 98.2, respirations 18, pulse 80, and blood pressure 131/78 with a pulse ox of 96% on 2 liters nasal O2. HEAD: Normocephalic, atraumatic. EYES: No icterus. EARS: Clear. THROAT: Noninjected. NECK: Supple. HEART: S1 and S2. LUNGS: With bibasilar rhonchi. ABDOMEN: Soft. EXTREMITIES: No edema. SKIN: Without rash. NEUROLOGICAL: Intact. PSYCHOLOGICAL: Alert. VASCULAR: Legs warm to touch. LABORATORY DATA: White count 11,500, hemoglobin 8.9, previously 8.4; hematocrit 25.7, and platelets 304,000. PT/INR 1.35. Sodium 144, K 3.9, chloride 110, bicarbonate 27, BUN 10, creatinine 1.3, random blood sugar 103, calcium 8.8, bilirubin 1.9, AST 84, ALT 27, and alk phos 103. Urinalysis unremarkable. Hepatitis A IgM antibody negative. Hepatitis C antibody negative. Hepatitis B core IgM antibody negative. Flow cytometry testing was sent, results are pending. IMPRESSION AND PLAN: A 63-year-old male admitted with chest pain with a negative 2D echocardiogram and Lexiscan stress test with comorbidities of acute on chronic anemia with iron deficiency and hemolytic components of unclear etiology and comorbidities of bibasilar pneumonia, hypokalemia resolved and intermittent accelerated hypertension. The plan at present is to continue clonidine 0.1 mg p.o. every 4 hours p.r.n. accelerated hypertension if systolic blood pressure greater than 160 or diastolic blood pressure greater than 100. He will continue on Ecotrin 81 mg p.o. daily, folic acid 1 mg p.o. daily, Protonix 40 mg p.o. daily and as discussed with his nurse we will discontinue his 0.45 saline since he is eating and drinking better and his fever has broken and monitor and push p.o. fluids. He will continue on Tylenol 650 p.o. every 4 hours p.r.n. pain or temperature greater than 101 and Zosyn 3.375 g intravenously every 8 hours. He also was continuing on a heart healthy diet, has a order for a comprehensive metabolic panel, CBC and INR in the a.m. We will complete a stool for occult blood and a bone marrow with Dr. Brenner and based on clinical progress, additional diagnostic workup and testing will be entertained. Greater than 35 minutes were spent in the care, management, review of labs, orders, x-rays and discussion of this patient with Gastroenterology, Infectious Disease and Hematology/Oncology as well as the patient and nursing. All questions were answered. Lizzy Alvares MD [id number]
--- NOTE | 2018-09-01 15:47 | CP.PCM.PN ---
Subjective - Date & Time of Evaluation Date of Evaluation: 09/01/18 Time of Evaluation: 14:00 - Subjective Subjective: Infectious Disease Follow Up: September 01, 2018 63 yo AA male with initial presentation for left sided stabbing chest pain while shopping the day prior to admission. The patient has a PMHx of Glaucoma and Degenerative Arthritis. He is on medical disability for a right leg injury that occurred at work several years ago. ID called for fevers up to 102.3 F in the past 24 hours. The patient had clear Chest X-rays, unremarkable urinalysis, and mild-mod leukocytosis. Bush cultures taken when fever up to 102.3 F. Occassional spikes of fever throughout the day yesterday and borderline temperatures today. Cultures negative so far at 48 hours. Patient is denying complaints. Abdominal X-ray showing moderate constipation. MRCP was done... strangely enough, incidental findings/signs of a bilateral pneumonia seen on the MRCP. Patient without fever for the last 72 hours with temperature up to 100.0 F. A urine culture is showing <10,000 growth of gram positive cocci. No specific cause for the fevers found as of yet. Patient had complaints of cough and some sputum production. No specific new complaints. Temperature of 98.6 F today. WBC is 11.5. Patient with no complaints. Objective - Vital Signs/Intake and Output Vital Signs (last 24 hours): Temp Pulse Resp BP Pulse Ox 98.4 F 84 18 122/80 96 09/01/18 12:00 09/01/18 12:00 09/01/18 12:00 09/01/18 12:00 09/01/18 00:01 Intake and Output: 09/01/18 09/01/18 06:59 18:59 Intake Total 2643 Output Total 1100 Balance 1543 - Medications Medications: Current Medications Acetaminophen (Tylenol 325mg Tab) 650 mg PO Q4H PRN PRN Reason: Temp>100.4*F Last Admin: 08/27/18 18:30 Dose: 650 mg Aspirin (Ecotrin) 81 mg PO DAILY [facility] Last Admin: 09/01/18 09:56 Dose: 81 mg Clonidine HCl (Catapres) 0.1 mg PO Q4 PRN PRN Reason: NEEDED FORSBP>160OR DBP>100 Folic Acid (Folic Acid) 1 mg PO DAILY [facility] Last Admin: 09/01/18 09:56 Dose: 1 mg Piperacillin Sod/Tazobactam Sod (Zosyn 3.375 In Ns 100ml) 100 mls @ 25 mls/hr IVPB Q8 [facility]; Protocol Last Admin: 09/01/18 15:28 Dose: 25 mls/hr Pantoprazole Sodium (Protonix Ec Tab) 40 mg PO 0600 [facility] Last Admin: 09/01/18 05:06 Dose: 40 mg - Labs Labs: 09/01/18 06:15 09/01/18 06:15 PT 15.2 SECONDS (9.4-12.5) H 09/01/18 06:15 INR 1.35 09/01/18 06:15 APTT 35.2 Seconds (26.9-38.3) 08/22/18 22:30 - Constitutional Appears: Non-toxic, No Acute Distress, Chronically Ill - Head Exam Head Exam: ATRAUMATIC, NORMOCEPHALIC - Eye Exam Eye Exam: EOMI, PERRL Pupil Exam: NORMAL ACCOMODATION, PERRL - ENT Exam ENT Exam: Mucous Membranes Moist, Normal External Ear Exam, TM's Normal Bilaterally - Neck Exam Neck Exam: Full ROM, Normal Inspection - Respiratory Exam Respiratory Exam: Clear to Ausculation Bilateral, NORMAL BREATHING PATTERN. absent: Rales, Rhonchi, Wheezes - Cardiovascular Exam Cardiovascular Exam: REGULAR RHYTHM, RRR, +S1, +S2 - GI/Abdominal Exam GI & Abdominal Exam: Soft, Normal Bowel Sounds. absent: Distended, Tenderness - Extremities Exam Extremities Exam: Full ROM, Normal Inspection - Neurological Exam Neurological Exam: Alert, Awake, CN II-XII Intact, Oriented x3 - Psychiatric Exam Psychiatric exam: Normal Affect, Normal Mood - Skin Skin Exam: Intact, Normal Color Assessment and Plan - Assessment and Plan (Free Text) Assessment: 63 yo AA male with presentation for fevers up to 102.3 F in the past 24 hours when ID intially consulted where the patient initially presented to [facility] for unstable angina. Urinalysis not indicative for UTI. Chest X-rays negative. Some renal insufficiency. Bilirubin counts are elevated but has had similar values in two distant hospitalizations. LDH elevated. Leukocytosis. Influenza testing negative. Bush cultures pending. Monitor temperature trend. Patient denying any additional complaints at this time. Obtain abdominal X-ray. Patient without bowel movements for the past 2 days. Abdomen distended. Abdominal X-ray showing moderate constipation. Cultures negative at 48 hours so far. Continue Rocephin for now. MRCP incidentally found bilateral pneumonia. Afebrile for the past 48 hours today. Patient cough and sputum production resolved. On IV Vancomycin and Zosyn. Treatment for pneumonia based on incidental findings from MRCP. Temperature of 98.6 F. If patient remains afebrile, can consider a switch to oral Clindamycin 300mg PO q8hrs and Omnicef 300mg BID for 7-10 days more. No additional issues at this time. Thank you for allowing me to participate in the care of the patient, we will follow with you.
--- NOTE | 2018-09-02 02:02 | CON ---
DATE: 09/01/2018 HEMATOLOGY CONSULTATION HISTORY OF PRESENT ILLNESS: This is a 63 year old man who comes in with a confusing medical history. He says that he recently came in for pain in his left chest wall under the left axilla. He really has not got much detail of this. That is why, he came in to the hospital. He was found to have over the last few days a rapid loss of weight. He says he usually weighs about 172. It is only about 151 and a progressive severe anemia. The hemoglobin initially on 08/25/2018 was 11.9, then went to 10.7 and 9.8, suddenly yesterday 9.5 and 8.8, and today is 8.4. So this is a steady decrease from 11.5 to 8.4, pretty much on daily basis. The white count is about 50,000 down to 10 with a MCV of 83 down to 80 and monocytosis of about 9% to 10%. He also has a retic count of 5%. He also got some IV iron. Other laboratory tests show that the bilirubin is about 2.9 down to 1.9, the ferritin level was 1300, the iron saturation was 12% even now ferritin was 1000, his B12 was 315, and folate was normal. He had a total protein of 9 which went down to 8 over the next couple of days. So it is unclear why he has a very rapidly progressive anemia. We did give him IV iron, may be he is responding to that. He also had a CAT scan of the abdomen, pelvis and chest which is essentially negative. He has some bilateral pleural effusions with bibasilar consolidation but no lymph nodes in the lung. Liver, gallbladder, pancreas, spleen, and adrenals all are unremarkable. No hydronephrosis. No free fluid. He has bilateral pleural effusions, bibasilar consolidations due to the effusions. So it is not clear why he has this severe anemia. I did flow cytometry for the monocytosis, came back negative the other day. PHYSICAL EXAMINATION: GENERAL: The patient has somewhat of temporal wasting. He tells me he lost about 20 pounds. SKIN: No petechiae. No bruises. HEENT: Anicteric. NODES: Nonpalpable masses in the cervical, supraclavicular, inguinal regions. LUNGS: Clear at the upper lungs. Little bit of decreased breath sounds on the bases. No vertebral tenderness noted. HEART: S1 and S2. ABDOMEN: Shows no liver, no spleen, no tenderness, no rebound, no ascites. EXTREMITIES: No edema. CENTRAL NERVOUS SYSTEM: No focal finding. ASSESSMENT AND PLAN: I performed a bone marrow aspiration biopsy from the left posterior iliac crest using 1% lidocaine under sterile condition, and I set this for the biopsy. We have slides and we have agreed up to for the flow cytometry which personally delivering down to the laboratory. We will not get results back for probably may be in the next one week, already this is Thursday, but he also seems to be having chills. I suspect that he is going to be running a high temperature today. If he does develop temperature, we will not to do the bone marrow aspiration biopsy. It could be having an interaction. So at this point, either iron deficiency or anemia of chronic disease secondary to infection somewhere which is causing the bone marrow not to respond. If hemoglobin continues to go down further, we may have to give a blood transfusion but right now . Rg Brenner MD
[2018-09-02] MEDS: Piperacillin/Tazobact 3.375 gm 100 ML IVPB SCH ×3 (05:50→21:42)
[2018-09-02] MEDS: Pantoprazole 40 mg EC Tab PO SCH (06:06)
[2018-09-02 07:07] LABS: BASO # 0.05 K/mm3 (0.0-2.0); BASO % 0.4 % (0.0-3.0); EOS # 0.3 (0.0-0.7); EOS % 2.4 % (1.5-5.0); HEMOGLOBIN 8.7 g/dL (14.0-18.0); LYMPH # 2.1 (1.2-3.4); LYMPH % 15.9 % (22.0-35.0); MEAN CELL VOLUME 80.9 fl (80.0-105.0); MEAN CORPUSCULAR HEMOGLOBIN 27.7 pg (25.0-35.0); MEAN CORPUSCULAR HGB CONC 34.3 g/dl (31.0-37.0); MEAN PLATELET VOLUME 9.4 fl (7.0-11.0); MONO # 1.4 (0.1-0.6); MONO % 10.9 % (1.0-6.0); RBC 3.14 10^6/uL (3.5-6.1); RED CELL DISTRIBUTION WIDTH 20.7 % (11.5-14.5); WHITE BLOOD COUNT 13.2 10^3/uL (4.5-11.0)
[2018-09-02 07:10] LABS: INR 1.34; PROTHROMBIN TIME 15.1 SECONDS (9.4-12.5)
[2018-09-02 07:18] LABS: ALB/GLOB RATIO 0.7 (1.1-1.8); ALBUMIN 3.5 g/dL (3.0-4.8); ALT/SGPT 21 U/L (7-56); AST/SGOT 67 U/L (17-59); BLOOD UREA NITROGEN 11 mg/dL (7-21); CALCIUM 9.2 mg/dL (8.4-10.5); GFR NON-AFRICAN AMERICAN 56
[2018-09-02 08:49] LABS: EOSINOPHIL 2 % (0.0-3.0); HYPOCHROMIA 2+; LYMPHOCYTE 26 % (22.0-35.0); MONOCYTE 8 % (1.0-6.0); NEUTROPHIL 64 % (50.0-70.0); PLATELET ESTIMATE NORMAL (NORMAL)
[2018-09-02 08:50] LABS: LARGE PLATELETS PRESENT; PLATELET CLUMPS PRESENT; TARGET CELLS 3+
[2018-09-02 08:51] LABS: SICKLE CELLS SLIGHT
[2018-09-02 08:52] LABS: PLATELET COUNT 514 10^3/uL (120.0-450.0)
--- NOTE | 2018-09-02 10:18 | CP.PCM.PN ---
<Oskar Cheema - Last Filed: 09/02/18 19:45> Subjective - Date & Time of Evaluation Date of Evaluation: 09/02/18 Time of Evaluation: 10:15 - Subjective Subjective: Oskar Cheema, PGY-1, GI Progress Note for Dr. Velasquez Patient seen and evaluated at bedside. Patient had no acute overnight events. Patient has had over 20 pound weight loss since this admission started. Patient denies any acute symptoms including nausea, vomiting, constipation, diarrhea, abdominal pain, chest pain, shortness of breath, fever. Objective - Vital Signs/Intake and Output Vital Signs (last 24 hours): Temp Pulse Resp BP Pulse Ox 97.9 F 88 20 127/80 96 09/02/18 06:00 09/02/18 06:00 09/02/18 06:00 09/02/18 06:00 09/02/18 06:00 Intake and Output: 09/02/18 09/02/18 06:59 18:59 Intake Total 600 Balance 600 - Medications Medications: Current Medications Acetaminophen (Tylenol 325mg Tab) 650 mg PO Q4H PRN PRN Reason: Temp>100.4*F Last Admin: 09/01/18 20:35 Dose: 650 mg Aspirin (Ecotrin) 81 mg PO DAILY [facility] Last Admin: 09/02/18 10:06 Dose: 81 mg Clonidine HCl (Catapres) 0.1 mg PO Q4 PRN PRN Reason: NEEDED FORSBP>160OR DBP>100 Folic Acid (Folic Acid) 1 mg PO DAILY [facility] Last Admin: 09/02/18 10:06 Dose: 1 mg Piperacillin Sod/Tazobactam Sod (Zosyn 3.375 In Ns 100ml) 100 mls @ 25 mls/hr IVPB Q8 [facility]; Protocol Last Admin: 09/02/18 05:50 Dose: 25 mls/hr Pantoprazole Sodium (Protonix Ec Tab) 40 mg PO 0600 [facility] Last Admin: 09/02/18 06:06 Dose: 40 mg - Labs Labs: 09/02/18 06:30 09/02/18 06:30 PT 15.1 SECONDS (9.4-12.5) H 09/02/18 06:30 INR 1.34 09/02/18 06:30 APTT 35.2 Seconds (26.9-38.3) 08/22/18 22:30 - Constitutional Appears: Well, Non-toxic, No Acute Distress - Head Exam Head Exam: ATRAUMATIC, NORMAL INSPECTION, NORMOCEPHALIC - Eye Exam Eye Exam: EOMI, PERRL - ENT Exam ENT Exam: Mucous Membranes Moist - Respiratory Exam Respiratory Exam: Clear to Auscultation Bilateral, NORMAL BREATHING PATTERN - Cardiovascular Exam Cardiovascular Exam: REGULAR RHYTHM, RRR, +S1, +S2 - GI/Abdominal Exam GI & Abdominal Exam: Normal Bowel Sounds, Soft. absent: Tenderness - Extremities Exam Extremities exam: Positive for: full ROM, normal inspection. Negative for: pedal edema - Neurological Exam Neurological exam: Alert, CN II-XII Intact, Oriented x3 - Skin Skin Exam: Dry, Intact, Normal Color Assessment and Plan - Assessment and Plan (Free Text) Assessment: 63 year old male with past medical history of glaucoma and arthritis presents with left rib pain starting 2-3 days ago. GI was consulted for anemia and possible Gilbert's syndrome. #Anemia #Possible Gilbert's Syndrome #Glaucoma #Arthritis Plan: -MRCP showed bibasilar lung consolidation, thus, patient could possibly have pneumonia complicated with sepsis leading to intrahepatic cholestasis. -Bush CT shows bibasilar lung consolidation but no acute intraabdominal findings. -Patient had bone marrow biopsy yesterday as PanCT shows no evidence of malignancy. Will follow up bone marrow biopsy for source of possible malignancy as patient has had significant weight loss, worsening anemia, leukocytosis, and thrombocytosis. -Patient has anemia with Hgb decreased to 8s from 10-11s last week. Would consider hemodilution vs. GI bleed -Iron studies show %transferrin saturation of 12, likely signifying iron deficiency anemia vs. chronic inflammatory state -LDH is elevated at 1125 likely signifying hemolytic anemia as the cause of the anemia. -Haptoglobin was low and retic count was high. Direct Asm test was negative. -Hepatitis panel unremarkable and has positive Hepatitis A and B antibody. -Continue HHD -INR improved to 1.34. Bilirubin is stable. -Will hold off on EGD at this time due to risk of aspiration -Sonogram showed gallstones asymptomatic -Total Bilirubin is elevated at 1.8, which likely does not signify Gilbert's syndrome. -Direct bilirubin is 0.7 -Patient should follow up outpatient with Dr. Velasquez for endoscopy and colonoscopy. Patient plan discussed with Dr. Velasquez. <Swapna Velasquez V - Last Filed: 09/03/18 23:51> Objective - Vital Signs/Intake and Output Vital Signs (last 24 hours): Temp Pulse Resp BP Pulse Ox 99 F 90 19 104/67 95 09/02/18 20:47 09/02/18 20:47 09/02/18 20:47 09/02/18 20:47 09/02/18 20:47 Intake and Output: 09/02/18 09/03/18 18:59 06:59 Intake Total 240 Output Total 100 Balance 240 -100 - Medications Medications: Current Medications Acetaminophen (Tylenol 325mg Tab) 650 mg PO Q4H PRN PRN Reason: Temp>100.4*F Last Admin: 09/01/18 20:35 Dose: 650 mg Aspirin (Ecotrin) 81 mg PO DAILY [facility] Last Admin: 09/02/18 10:06 Dose: 81 mg Clonidine HCl (Catapres) 0.1 mg PO Q4 PRN PRN Reason: NEEDED FORSBP>160OR DBP>100 Folic Acid (Folic Acid) 1 mg PO DAILY [facility] Last Admin: 09/02/18 10:06 Dose: 1 mg Piperacillin Sod/Tazobactam Sod (Zosyn 3.375 In Ns 100ml) 100 mls @ 25 mls/hr IVPB Q8 [facility]; Protocol Last Admin: 09/02/18 21:42 Dose: 25 mls/hr Pantoprazole Sodium (Protonix Ec Tab) 40 mg PO 0600 [facility] Last Admin: 09/02/18 06:06 Dose: 40 mg - Labs Labs: 09/02/18 06:30 09/02/18 06:30 PT 15.1 SECONDS (9.4-12.5) H 09/02/18 06:30 INR 1.34 09/02/18 06:30 APTT 35.2 Seconds (26.9-38.3) 08/22/18 22:30 Attending/Attestation - Attestation I have personally seen and examined this patient.: Yes I have fully participated in the care of the patient.: Yes I have reviewed all pertinent clinical information, including history, physical exam and plan: Yes Notes (Text): This is an addendum to the reversible dictated by the resident. The patient was seen and evaluated along with the resident area. Discussed with Dr. Alves. Patient presented with the sepsis and pneumonia anemia hemolytic process. Patient had a bone marrow biopsy was done in view of these anemia thrombocytosis. Patient has been on antibiotics as per ID. We will discuss with ID regarding the atypical pneumonia mycoplasma pneumonia in view of these hemolytic process and lung infiltrate with a minimally symptoms except fever. Patient would benefit from endoscopy and possibly colonoscopy at later stage. We will await endoscopy procedures in view of this pneumonia. 09/03/18 23:48
--- NOTE | 2018-09-02 13:24 | PN ---
DATE: 09/02/2018 SUBJECTIVE: This 63-year-old male was examined at his bedside at [facility] on the morning of , 09/02/2018. The patient successfully completed a bone marrow biopsy under the direction of Dr. Rg Brenner, results of which are pending. The patient is able to ambulate with assistance and denies any fever, chills, chest pain or shortness of breath. At present, he has no productive cough. PHYSICAL EXAMINATION: VITAL SIGNS: Temperature is 97.9, respirations 20, pulse 88, blood pressure 127/80 with a pulse ox of 96% on 2 liters nasal O2. HEENT: Head: Normocephalic, atraumatic. Eyes: No icterus. Ears: Clear. Throat: Noninjected. NECK: Supple. HEART: S1, S2. LUNGS: With basilar rhonchi bilaterally. No expiratory wheezing. No rales. ABDOMEN: Soft. EXTREMITIES: No edema. SKIN: Without rash. NEUROLOGICAL: Intact. PSYCHOLOGICAL: Alert and oriented x3. VASCULAR: His legs are warm to touch. LABORATORY DATA: His white count is 13,200, hemoglobin 8.7, hematocrit 25.4, platelets was 514,000. PT/INR is 1.34. Sodium 145, K 4, chloride 109, bicarb 27, BUN 11, creatinine 1.3, random blood sugar 96, bilirubin 1.8, AST 67, ALT 21, alk phos 98. Urinalysis is unremarkable. Influenza A and B serologies negative and flow cytometry testing as per Dr. Rg Brenner from Oncology is reportedly negative. IMPRESSION: This is a 63-year-old male with multiple medical problems including admission for chest pain with unremarkable 2-D echocardiography and Lexiscan stress testing with hospital course complicated by bibasilar pneumonia and acute on chronic anemia with iron deficiency component as well as anemia of chronic disease, also with paroxysmal hypertension and history of peptic ulcer disease with gastroesophageal reflux disease. PLAN: At present is to continue Zosyn 3.375 g IV every 8 hours, Tylenol 650 p.o. every 4 hours p.r.n. temperature greater than 101, Protonix 40 mg p.o. daily, folic acid 1 mg p.o. daily, Ecotrin 81 mg p.o. daily and clonidine 0.1 mg p.o. every 4 hours p.r.n. accelerated hypertension if systolic blood pressure greater than 160 or diastolic blood pressure greater than 100. The patient was instructed to follow up with Dr. Rg Brenner as an outpatient within the following week for results of his bone marrow testing. He continues on a heart healthy diet, physical therapy and I will order a chest x-ray PA and lateral to assess the status of his bibasilar pneumonia. Once the patient is cleared by GI, Infectious Disease as well as Hem/Onc, he will be discharged to home and will require followup with Dr. Brenner as an outpatient. Greater than 35 minutes were spent in the care management, review of labs, orders and outlining of testings for this patient today. All questions were answered. Lizzy Alvares MD MTDD
--- NOTE | 2018-09-02 15:18 | RAD ---
Date of service: 09/02/2018 HISTORY: bibasilar pneumonia COMPARISON: 08/24/2018 TECHNIQUE: Chest PA and lateral views FINDINGS: LUNGS: Bibasilar infiltrates left greater than right PLEURA: No significant pleural effusion identified. No pneumothorax apparent. CARDIOVASCULAR: No aortic atherosclerotic calcification present. Normal cardiac size. No pulmonary vascular congestion. OSSEOUS STRUCTURES: No significant abnormalities. VISUALIZED UPPER ABDOMEN: Normal. OTHER FINDINGS: None. IMPRESSION: Bibasilar infiltrates left greater than right
--- NOTE | 2018-09-02 16:18 | CP.PCM.PN ---
Subjective - Date & Time of Evaluation Date of Evaluation: 09/02/18 Time of Evaluation: 15:30 - Subjective Subjective: Infectious Disease Follow Up: September 02, 2018 63 yo AA male with initial presentation for left sided stabbing chest pain while shopping the day prior to admission. The patient has a PMHx of Glaucoma and Degenerative Arthritis. He is on medical disability for a right leg injury that occurred at work several years ago. ID called for fevers up to 102.3 F in the past 24 hours. The patient had clear Chest X-rays, unremarkable urinalysis, and mild-mod leukocytosis. Bush cultures taken when fever up to 102.3 F. Occassional spikes of fever throughout the day yesterday and borderline temperatures today. Cultures negative so far at 48 hours. Patient is denying complaints. Abdominal X-ray showing moderate constipation. MRCP was done... strangely enough, incidental findings/signs of a bilateral pneumonia seen on the MRCP. Patient without fever for the last 4 days. A urine culture is showing <10,000 growth of gram positive cocci. No specific cause for the fevers found as of yet. Patient had complaints of cough and some sputum production. No specific new complaints. Temperature of 98.6 F today. WBC is 13.2. Patient with no complaints. Noted that patient had bone marrow biopsy yesterday. Chest X-ray noted. Objective - Vital Signs/Intake and Output Vital Signs (last 24 hours): Temp Pulse Resp BP Pulse Ox 98.9 F 87 20 106/74 96 09/02/18 14:00 09/02/18 14:00 09/02/18 14:00 09/02/18 14:00 09/02/18 14:00 Intake and Output: 09/02/18 09/02/18 06:59 18:59 Intake Total 600 Balance 600 - Medications Medications: Current Medications Acetaminophen (Tylenol 325mg Tab) 650 mg PO Q4H PRN PRN Reason: Temp>100.4*F Last Admin: 09/01/18 20:35 Dose: 650 mg Aspirin (Ecotrin) 81 mg PO DAILY [facility] Last Admin: 09/02/18 10:06 Dose: 81 mg Clonidine HCl (Catapres) 0.1 mg PO Q4 PRN PRN Reason: NEEDED FORSBP>160OR DBP>100 Folic Acid (Folic Acid) 1 mg PO DAILY [facility] Last Admin: 09/02/18 10:06 Dose: 1 mg Piperacillin Sod/Tazobactam Sod (Zosyn 3.375 In Ns 100ml) 100 mls @ 25 mls/hr IVPB Q8 [facility]; Protocol Last Admin: 09/02/18 14:44 Dose: 25 mls/hr Pantoprazole Sodium (Protonix Ec Tab) 40 mg PO 0600 [facility] Last Admin: 09/02/18 06:06 Dose: 40 mg - Labs Labs: 09/02/18 06:30 09/02/18 06:30 PT 15.1 SECONDS (9.4-12.5) H 09/02/18 06:30 INR 1.34 09/02/18 06:30 APTT 35.2 Seconds (26.9-38.3) 08/22/18 22:30 - Constitutional Appears: Non-toxic, No Acute Distress, Chronically Ill - Head Exam Head Exam: ATRAUMATIC, NORMOCEPHALIC - Eye Exam Eye Exam: EOMI, PERRL Pupil Exam: NORMAL ACCOMODATION, PERRL - ENT Exam ENT Exam: Mucous Membranes Moist, Normal External Ear Exam, TM's Normal Bilaterally - Neck Exam Neck Exam: Full ROM, Normal Inspection - Respiratory Exam Respiratory Exam: Decreased Breath Sounds (at bases bilaterally), Clear to Ausculation Bilateral, NORMAL BREATHING PATTERN. absent: Rales, Rhonchi, Wheezes - Cardiovascular Exam Cardiovascular Exam: REGULAR RHYTHM, RRR, +S1, +S2 - GI/Abdominal Exam GI & Abdominal Exam: Soft, Normal Bowel Sounds. absent: Distended, Tenderness - Extremities Exam Extremities Exam: Full ROM, Normal Inspection - Neurological Exam Neurological Exam: Alert, Awake, CN II-XII Intact, Oriented x3 - Psychiatric Exam Psychiatric exam: Normal Affect, Normal Mood - Skin Skin Exam: Intact, Normal Color Assessment and Plan - Assessment and Plan (Free Text) Assessment: 63 yo AA male with presentation for fevers up to 102.3 F in the past 24 hours when ID intially consulted where the patient initially presented to [facility] for unstable angina. Urinalysis not indicative for UTI. Chest X-rays negative. Some renal insufficiency. Bilirubin counts are elevated but has had similar values in two distant hospitalizations. LDH elevated. Leukocytosis. Influenza testing negative. Bush cultures pending. Monitor temperature trend. Patient denying any additional complaints at this time. Obtain abdominal X-ray. Patient without bowel movements for the past 2 days. Abdomen distended. Abdominal X-ray showing moderate constipation. Cultures negative at 48 hours so far. Continue Rocephin for now. MRCP incidentally found bilateral pneumonia. Afebrile for the past 48 hours today. Patient cough and sputum production resolved. On IV Vancomycin and Zosyn. Treatment for pneumonia based on incidental findings from MRCP. Temperature of 98.6 F. Afebrile the past 4 days. If patient remains afebrile, can consider a switch to oral Clindamycin 300mg PO q8hrs and Omnicef 300mg BID for 7-10 days more. No additional issues at this time. Bone marrow biopsy done on 09/01/2018. Thank you for allowing me to participate in the care of the patient, we will follow with you.
[2018-09-03] MEDS: Piperacillin/Tazobact 3.375 gm 100 ML IVPB SCH ×2 (05:35→14:15)
[2018-09-03] MEDS: Pantoprazole 40 mg EC Tab PO SCH (05:35)
[2018-09-03 07:21] LABS: BASO # 0.04 K/mm3 (0.0-2.0); BASO % 0.3 % (0.0-3.0); EOS # 0.4 (0.0-0.7); EOS % 2.4 % (1.5-5.0); HEMOGLOBIN 8.7 g/dL (14.0-18.0); LYMPH # 1.9 (1.2-3.4); LYMPH % 12.5 % (22.0-35.0); MEAN CELL VOLUME 79.7 fl (80.0-105.0); MEAN CORPUSCULAR HEMOGLOBIN 27.5 pg (25.0-35.0); MEAN CORPUSCULAR HGB CONC 34.5 g/dl (31.0-37.0); MEAN PLATELET VOLUME 9.1 fl (7.0-11.0); MONO # 1.1 (0.1-0.6); MONO % 7.1 % (1.0-6.0); RBC 3.16 10^6/uL (3.5-6.1); RED CELL DISTRIBUTION WIDTH 20.6 % (11.5-14.5)
[2018-09-03 07:42] LABS: ALB/GLOB RATIO 0.7 (1.1-1.8); ALBUMIN 3.6 g/dL (3.0-4.8); CALCIUM 9.1 mg/dL (8.4-10.5)
--- NOTE | 2018-09-03 13:02 | PN ---
DATE: 09/03/2018 SUBJECTIVE: This 63-year-old male was examined at his bedside on the morning of 09/03/2018. This case was also reviewed with nurse, Carmen Cormier, registered nurse and Dr. Rg Brenner from Hematology/Oncology. The patient was out of bed to chair. He denied any productive cough. I did review his chest x-ray dated 09/02/2018 that was read by Dr. Shawn Morse from Radiology. His current x-ray shows bibasilar infiltrates, left greater than right. There is normal cardiac size and no pulmonary vascular congestion. His chest, abdomen and pelvic CTs showed extensive bibasilar consolidation with associated pleural effusions. Today's CBC also shows a white count of 15,000 with a hemoglobin of 8.7 and a platelet count of 406,000. Given these findings, we have placed a consultation with Dr. Giovanny Zavala from Interventional Radiology for possible pulmonary biopsy versus pleural thoracentesis and I have asked Dr. Chang from Pulmonary to evaluate this patient as well. PHYSICAL EXAMINATION: VITAL SIGNS: His temperature is 98.4, previously 99, with a respiratory rate of 20, pulse 86 and blood pressure 109/76 and a pulse ox of 93% on 2 liters nasal O2. HEENT: Head: Normocephalic, atraumatic. Eyes: No icterus. Ears: Clear. Throat: Noninjected. NECK: Supple. HEART: S1, S2. LUNGS: With basilar rhonchi. ABDOMEN: Soft. EXTREMITIES: No edema. SKIN: Without rash. NEUROLOGICAL: Intact. PSYCHOLOGICAL: Alert. VASCULAR: Legs warm to touch. LABORATORY DATA: White count 15,000, hemoglobin 8.7, hematocrit 25.2, platelets 406,000. Sodium 144, K 4.2, chloride 109, bicarb 27, BUN 16, creatinine 1.5, random blood sugar 92, total bilirubin 1.7, AST 77, ALT 22, and alk phos 103. Flow cytometry testing showed no evidence of any abnormal myeloid maturation or increased blast population on examination of peripheral blood. PLAN: Proceed with ID reevaluation regarding antibiotics. I will start this gentleman on IV fluid hydration. He continues on clonidine 0.1 mg p.o. every 4 hours p.r.n. accelerated hypertension, Ecotrin 81 mg p.o. daily, folic acid 1 mg p.o. daily, Protonix 40 mg p.o. daily and Tylenol 650 p.o. every 4 hours p.r.n. temperature greater than 101. A repeat basic metabolic panel will be obtained in the a.m. and based on clinical progress, additional diagnostic workup and testing will be entertained. Greater than 35 minutes was spent in the care management, review of labs, orders and x-rays and discussion of this patient with himself, Dr. Brenner and nurse, Casa. All questions were answered. Lizzy Alvares MD MTDD
[2018-09-03] MEDS: Sodium Chloride 0.45% 1,000 ML IV SCH (18:15)
--- NOTE | 2018-09-03 21:25 | CP.PCM.PN ---
Subjective - Date & Time of Evaluation Date of Evaluation: 09/03/18 Time of Evaluation: 20:00 - Subjective Subjective: Infectious Disease Follow Up: September 03, 2018 63 yo AA male with initial presentation for left sided stabbing chest pain while shopping the day prior to admission. The patient has a PMHx of Glaucoma and Degenerative Arthritis. He is on medical disability for a right leg injury that occurred at work several years ago. ID called for fevers up to 102.3 F in the past 24 hours. The patient had clear Chest X-rays, unremarkable urinalysis, and mild-mod leukocytosis. Bush cultures taken when fever up to 102.3 F. Occassional spikes of fever throughout the day yesterday and borderline temperatures today. Cultures negative so far at 48 hours. Patient is denying complaints. Abdominal X-ray showing moderate constipation. MRCP was done... strangely enough, incidental findings/signs of a bilateral pneumonia seen on the MRCP. Patient without fever for the last 4 days. A urine culture is showing <10,000 growth of gram positive cocci. No specific cause for the fevers found as of yet. Patient had complaints of cough and some sputum production. No specific new complaints. Temperature of 98.5 F today. WBC is 15.0. Patient with no complaints. Noted that patient had bone marrow biopsy yesterday. Chest X-ray noted. No additional issues. Objective - Vital Signs/Intake and Output Vital Signs (last 24 hours): Temp Pulse Resp BP Pulse Ox 98.5 F 78 20 104/71 95 09/03/18 14:00 09/03/18 14:00 09/03/18 14:00 09/03/18 14:00 09/03/18 16:27 - Medications Medications: Current Medications Acetaminophen (Tylenol 325mg Tab) 650 mg PO Q4H PRN PRN Reason: Temp>100.4*F Last Admin: 09/01/18 20:35 Dose: 650 mg Acetylcysteine (Acetylcysteine 20%) 3 ml INH BIDRESP TA Arformoterol Tartrate (Brovana) 15 mcg IH [id number] [facility] Aspirin (Ecotrin) 81 mg PO DAILY [facility] Last Admin: 09/03/18 09:39 Dose: 81 mg Budesonide (Pulmicort Respules) 0.5 mg IH [id number] TA Clonidine HCl (Catapres) 0.1 mg PO Q4 PRN PRN Reason: NEEDED FORSBP>160OR DBP>100 Folic Acid (Folic Acid) 1 mg PO DAILY [facility] Last Admin: 09/03/18 09:39 Dose: 1 mg Sodium Chloride (Sodium Chloride 0.45%) 1,000 mls @ 100 mls/hr IV .Q10H TA Last Admin: 09/03/18 18:15 Dose: 100 mls/hr Piperacillin Sod/Tazobactam Sod (Zosyn 3.375 In Ns 100ml) 100 mls @ 25 mls/hr IVPB Q12 TA; Protocol Stop: 09/04/18 01:59 Pantoprazole Sodium (Protonix Ec Tab) 40 mg PO 0600 [facility] Last Admin: 09/03/18 05:35 Dose: 40 mg - Labs Labs: 09/03/18 07:00 09/03/18 07:00 PT 15.1 SECONDS (9.4-12.5) H 09/02/18 06:30 INR 1.34 09/02/18 06:30 APTT 35.2 Seconds (26.9-38.3) 08/22/18 22:30 - Constitutional Appears: Non-toxic, No Acute Distress, Chronically Ill - Head Exam Head Exam: ATRAUMATIC, NORMOCEPHALIC - Eye Exam Eye Exam: EOMI, PERRL Pupil Exam: NORMAL ACCOMODATION, PERRL - ENT Exam ENT Exam: Mucous Membranes Moist, Normal External Ear Exam, TM's Normal Bilaterally - Neck Exam Neck Exam: Full ROM, Normal Inspection - Respiratory Exam Respiratory Exam: Decreased Breath Sounds (at bases), NORMAL BREATHING PATTERN. absent: Rales, Rhonchi, Wheezes - Cardiovascular Exam Cardiovascular Exam: REGULAR RHYTHM, RRR, +S1, +S2 - GI/Abdominal Exam GI & Abdominal Exam: Soft, Normal Bowel Sounds. absent: Distended, Tenderness - Extremities Exam Extremities Exam: Full ROM, Normal Inspection - Neurological Exam Neurological Exam: Alert, Awake, CN II-XII Intact, Oriented x3 - Psychiatric Exam Psychiatric exam: Normal Affect, Normal Mood - Skin Skin Exam: Intact, Normal Color Assessment and Plan - Assessment and Plan (Free Text) Assessment: 63 yo AA male with presentation for fevers up to 102.3 F in the past 24 hours when ID intially consulted where the [place] [facility] [place]. Urinalysis not indicative for UTI. Chest X-rays negative. Some renal insufficiency. Bilirubin counts are elevated but has had similar values in two distant hospitalizations. LDH elevated. Leukocytosis. Influenza testing negative. Bush cultures pending. Monitor temperature trend. Patient denying any additional complaints at this time. Obtain abdominal X-ray. Patient without bowel movements for the past 2 days. Abdomen distended. Abdominal X-ray showing moderate constipation. Cultures negative at 48 hours so far. Continue Rocephin for now. MRCP incidentally found bilateral pneumonia. Afebrile for the past 48 hours today. Patient cough and sputum production resolved. On IV Vancomycin and Zosyn. Treatment for pneumonia based on incidental findings from MRCP. Temperature of 98.6 F. Afebrile the past 5 days. If patient remains afebrile, can consider a switch to oral Clindamycin 300mg PO q8hrs and Omnicef 300mg BID for 7-10 days more. No additional issues at this time. Bone marrow biopsy done on 09/01/2018. Noted pulmonary consult was called. Thank you for allowing me to participate in the care of the patient, we will follow with you.
[2018-09-03] MEDS ORDERED: Piperacillin/Tazobact 3.375 gm 100 ML IVPB SCH (22:00)
--- NOTE | 2018-09-04 04:16 | CON ---
DATE: 09/03/2018 PULMONARY CONSULTATION REFERRING PHYSICIAN: Dr. Alvares. REASON FOR CONSULTATION: Basilar infiltrate, being treated for pneumonia. HISTORY OF PRESENT ILLNESS: This is a 63-year-old gentleman who stopped smoking many years ago, also has a history of arthritis, trauma to the leg in the past, comes into the ER with fever, seen by Infectious Diseases, has been treated with antibiotics. According to the patient, he lost weight, also since in the hospital lost significant hemoglobin, became anemic, hematology consult has been called, presently sitting up in a chair, very poor historian. Does have some cough which was much better than when he came in, with no hemoptysis, no emesis, no hematuria or diarrhea reported. PAST MEDICAL HISTORY: As per history of present illness. ALLERGIES: NONE KNOWN. SOCIAL HISTORY: Stopped smoking many years ago. Denies any alcohol use. FAMILY HISTORY: No significant cardiopulmonary disease reported. MEDICATIONS: He is on Catapres 0.1 mg every 4 hours p.r.n., Ecotrin 81 mg daily, folic acid 1 mg daily, Protonix 40 mg daily, IV fluids half normal saline 100 mL/hr, Tylenol p.r.n., Zosyn 3.375 g IV every eight hours. REVIEW OF SYSTEMS: No headache, no rhinitis, does not snore, has mild cough, not much shortness of breath or chest pain at present. No nausea, no vomiting, no diarrhea, no leg pain or leg swelling. No melena, no hematochezia. PHYSICAL EXAMINATION: GENERAL: No acute distress. VITAL SIGNS: Temperature was 98, T-max was 101, heart rate 78, respirations 20, blood pressure 104/71, pulse ox 95% on 2 liters nasal cannula. HEENT: Moist mucous membranes, no ulcer, no thrush noted. Has a crowded airway. NECK: Supple. No JVD. LUNGS: Have a few crackles at the bases. HEART: S1, S2. ABDOMEN: Soft, nontender, no organomegaly. EXTREMITIES: No edema. NEUROLOGICAL: Awake, alert, and follows simple commands. LABORATORY DATA: Shows hemoglobin of 8.7, hematocrit 25.2, WBC 15, platelet count is 406, INR 1.34. Sodium 144, potassium 4.2, chloride 109, bicarbonate 25, BUN 16, creatinine 1.5, glucose 79, calcium is 9.1. Total bili 1.7, AST 77, ALT 22, alk phos is 103. Albumin is 3.6. Hepatitis A antibody total is reactive. IgM antibodies are nonreactive. Microbiology: Urine has gram-positive cocci on admission. Blood culture has been negative. Sputum culture has a normal dariana. CT scan of the abdomen and chest done on 08/28 shows basilar infiltrate. Latest x-ray with his chest x-ray yesterday shows basilar infiltrate, left greater than the right. IMPRESSION AND PLAN: Bibasilar infiltrate with weight loss, anemia. Also, a magnetic resonance cholangiopancreatography which was unremarkable. The patient is being followed by Infectious Diseases as well as Hematology. We will send procalcitonin, BNP, sed rate, C-reactive protein, consider HIV testing. We will make further recommendations once these labs are available. Thank you and we will follow with you. Joseluis Chang MD
[2018-09-04] MEDS: Pantoprazole 40 mg EC Tab PO SCH (05:33)
[2018-09-04] MEDS: Acetylcysteine 20% Inhal Soln (4ml) INH SCH ×2 (07:22→19:17)
[2018-09-04] MEDS: Budesonide 0.5 mg/2 ml Inhal Susp UD IH SCH ×2 (07:23→19:18)
[2018-09-04] MEDS: Arformoterol 15 mcg/2 ml Inh Sol IH SCH ×2 (07:23→19:18)
[2018-09-04 07:43] LABS: BASO # 0.03 K/mm3 (0.0-2.0); BASO % 0.2 % (0.0-3.0); EOS # 0.5 (0.0-0.7); EOS % 3.2 % (1.5-5.0); HEMOGLOBIN 8.5 g/dL (14.0-18.0); LYMPH # 2.1 (1.2-3.4); LYMPH % 13.8 % (22.0-35.0); MEAN CELL VOLUME 78.5 fl (80.0-105.0); MEAN CORPUSCULAR HEMOGLOBIN 27.3 pg (25.0-35.0); MEAN CORPUSCULAR HGB CONC 34.8 g/dl (31.0-37.0); MEAN PLATELET VOLUME 8.9 fl (7.0-11.0); MONO # 0.8 (0.1-0.6); MONO % 5.4 % (1.0-6.0); RBC 3.11 10^6/uL (3.5-6.1); RED CELL DISTRIBUTION WIDTH 20.8 % (11.5-14.5); WHITE BLOOD COUNT 15.1 10^3/uL (4.5-11.0)
[2018-09-04 07:54] LABS: ALB/GLOB RATIO 0.7 (1.1-1.8); ALBUMIN 3.6 g/dL (3.0-4.8); ALT/SGPT 21 U/L (7-56); AST/SGOT 72 U/L (17-59); BLOOD UREA NITROGEN 14 mg/dL (7-21); GFR NON-AFRICAN AMERICAN 56
[2018-09-04] MEDS: Sodium Chloride 0.45% 1,000 ML IV SCH (09:09)
--- NOTE | 2018-09-04 10:46 | PN ---
DATE: 09/04/2018 PULMONARY PROGRESS NOTE REFERRING PHYSICIAN: Lizzy Alvares MD SUBJECTIVE: The patient is seen sitting up in bed. No acute distress. No overnight events reported. Reports that cough is better. No headache, rhinitis, shortness of breath, chest pain, abdominal pain, nausea, vomiting, diarrhea, leg pain, leg swelling reported. OBJECTIVE: GENERAL: No acute distress. VITAL SIGNS: Blood pressure 109/73, pulse 88, temperature 98.6, oxygen saturation 100% on room air. HEENT: Moist mucous membranes. Crowded airway. NECK: Supple. No JVD. CARDIOVASCULAR: S1 and S2. LUNGS: Crackles, right base. ABDOMEN: Soft, nontender. No distention. No organomegaly. EXTREMITIES: No bilateral lower extremity edema. NEUROLOGICAL: Awake, alert, verbal, following commands. MEDICATIONS: Reviewed. Tylenol 650 every 4 hours p.r.n. temperature greater than 100.4, Mucomyst 3 mL inhalation twice a day, Brovana 15 mcg every 12 hours, aspirin 81 mg daily, Pulmicort 0.5 mg inhalation every 12 hours, clonidine 0.1 mg every 4 hours p.r.n., folic acid 1 mg daily, Protonix 40 mg daily, Zosyn 3.375 g in 100 mL at 25 mL per hour every 8 hours, sodium chloride 0.45% 1000 mL at 100 mL per hour. LABORATORY DATA: Reviewed. WBC 15.1, RBC 3.11, hemoglobin 8.5, hematocrit 24.4, platelets 334. Sodium 143, potassium 4, chloride 110, carbon dioxide 23, anion gap 14, BUN 14, creatinine 1.3, GFR greater than 60, random glucose 95, calcium 9, total bilirubin 1.4, AST 72, ALT 21, alkaline phosphatase 99, C-reactive protein pending, total protein 8.4, albumin 3.4, globulin 4.9 and albumin-globulin ratio 0.7. Procalcitonin pending. IMPRESSION AND PLAN: Bibasilar infiltrate with weight loss, anemia. We will order swallow evaluation to rule out aspiration. Continue followup with Infectious Disease, antibiotics per Infectious Disease, Hematology followup. C-reactive protein, procalcitonin pending. We will follow up when available and give further recommendations once both labs are available. Continue gastric prophylaxis. Continue sequential compression devices to bilateral lower extremities with deep venous thrombosis prophylaxis due to the patient's current anemia status and hemoglobin of 8.5. Will order swallow evaluation to rule out aspiration. The patient was seen and examined with Dr. Chang. Discussed assessment and plan as described above. This patient was seen and examined with Antonio Rascon, nurse practitioner. Discussed assessment and plan as described above. Thank you for this consult. We will follow with you. Antonio Rascon APN Joseluis Chang MD MTDZenon
[2018-09-04] MEDS ORDERED: Azithromycin 500 MG in Sodium Chloride 0.9% 250 ML IV SCH (13:00)
[2018-09-04] MEDS: Azithromycin 500MG/NS 250ml 500 MG/250 ML BAG IVPB SCH (13:15)
[2018-09-04] MEDS: Piperacillin/Tazobact 3.375 gm 100 ML IVPB SCH ×2 (13:16→21:25)
--- NOTE | 2018-09-04 19:06 | CP.PCM.PN ---
Subjective - Date & Time of Evaluation Date of Evaluation: 09/04/18 Time of Evaluation: 18:00 - Subjective Subjective: Infectious Disease Follow Up: September 04, 2018 63 yo AA male with initial presentation for left sided stabbing chest pain while shopping the day prior to admission. The patient has a PMHx of Glaucoma and Degenerative Arthritis. He is on medical disability for a right leg injury that occurred at work several years ago. ID called for fevers up to 102.3 F in the past 24 hours. The patient had clear Chest X-rays, unremarkable urinalysis, and mild-mod leukocytosis. Bush cultures taken when fever up to 102.3 F. Occassional spikes of fever throughout the day yesterday and borderline temperatures today. Cultures negative so far at 48 hours. Patient is denying complaints. Abdominal X-ray showing moderate constipation. MRCP was done... strangely enough, incidental findings/signs of a bilateral pneumonia seen on the MRCP. Patient without fever for the last 4 days. A urine culture is showing <10,000 growth of gram positive cocci. No specific cause for the fevers found as of yet. Patient had complaints of cough and some sputum production. No specific new complaints. Temperature of 98.6 F today. WBC is 15.1. Hemoglobin has remained around 8.5- 8.9 the last few days. Patient with no complaints. Noted that patient had bone marrow biopsy two days ago. Chest X-ray noted. No additional issues. Procalcitonin showing a value of 0.13 which is lower than the initial 0.41 from 08/28/2018. The low procalcitonin value would argue against worsening of the previously seen pneumonia (on the MRCP) and argue for improvement. No leukocytosis. CRP is high at 61. ESR is pending. Objective - Vital Signs/Intake and Output Vital Signs (last 24 hours): Temp Pulse Resp BP Pulse Ox 98.6 F 97 H 20 120/74 97 09/04/18 14:00 09/04/18 14:00 09/04/18 14:00 09/04/18 14:00 09/04/18 14:00 Intake and Output: 09/04/18 09/04/18 06:59 18:59 Intake Total 1040 Output Total 800 Balance 240 - Medications Medications: Current Medications Acetaminophen (Tylenol 325mg Tab) 650 mg PO Q4H PRN PRN Reason: Temp>100.4*F Last Admin: 09/01/18 20:35 Dose: 650 mg Acetylcysteine (Acetylcysteine 20%) 3 ml INH BIDRESP TA Last Admin: 09/04/18 07:22 Dose: 3 ml Arformoterol Tartrate (Brovana) 15 mcg IH [id number] TA Last Admin: 09/04/18 07:23 Dose: 15 mcg Aspirin (Ecotrin) 81 mg PO DAILY TA Last Admin: 09/04/18 09:10 Dose: 81 mg Budesonide (Pulmicort Respules) 0.5 mg IH [id number] TA Last Admin: 09/04/18 07:23 Dose: 0.5 mg Clonidine HCl (Catapres) 0.1 mg PO Q4 PRN PRN Reason: NEEDED FORSBP>160OR DBP>100 Folic Acid (Folic Acid) 1 mg PO DAILY TA Last Admin: 09/04/18 09:10 Dose: 1 mg Sodium Chloride (Sodium Chloride 0.45%) 1,000 mls @ 100 mls/hr IV .Q10H TA Last Admin: 09/04/18 09:09 Dose: 100 mls/hr Piperacillin Sod/Tazobactam Sod (Zosyn 3.375 In Ns 100ml) 100 mls @ 25 mls/hr IVPB Q8 TA; Protocol Stop: 09/05/18 01:59 Last Admin: 09/04/18 13:16 Dose: 25 mls/hr Azithromycin (Zithromax 500mg In Ns) 500 mg in 250 mls @ 250 mls/hr IVPB DAILY [facility]; Protocol Last Admin: 09/04/18 13:15 Dose: 250 mls/hr Pantoprazole Sodium (Protonix Ec Tab) 40 mg PO 0600 [facility] Last Admin: 09/04/18 05:33 Dose: 40 mg - Labs Labs: 09/04/18 07:00 09/04/18 07:00 PT 15.1 SECONDS (9.4-12.5) H 09/02/18 06:30 INR 1.34 09/02/18 06:30 APTT 35.2 Seconds (26.9-38.3) 08/22/18 22:30 - Constitutional Appears: Non-toxic, No Acute Distress, Chronically Ill - Head Exam Head Exam: ATRAUMATIC, NORMOCEPHALIC - Eye Exam Eye Exam: EOMI, PERRL Pupil Exam: NORMAL ACCOMODATION, PERRL - ENT Exam ENT Exam: Mucous Membranes Moist, Normal External Ear Exam, TM's Normal Bilaterally - Neck Exam Neck Exam: Full ROM, Normal Inspection - Respiratory Exam Respiratory Exam: Clear to Ausculation Bilateral, Rales, NORMAL BREATHING PATTERN. absent: Rhonchi, Wheezes - Cardiovascular Exam Cardiovascular Exam: REGULAR RHYTHM, RRR, +S1, +S2 - GI/Abdominal Exam GI & Abdominal Exam: Soft, Normal Bowel Sounds. absent: Distended, Tenderness - Extremities Exam Extremities Exam: Full ROM, Normal Inspection - Neurological Exam Neurological Exam: Alert, Awake, CN II-XII Intact, Oriented x3 - Psychiatric Exam Psychiatric exam: Normal Affect, Normal Mood - Skin Skin Exam: Intact, Normal Color Assessment and Plan - Assessment and Plan (Free Text) Assessment: 63 yo AA male with presentation for fevers up to 102.3 F in the past 24 hours when ID intially consulted where the [place] [facility] [place]. Urinalysis not indicative for UTI. Chest X-rays negative. Some renal insufficiency. Bilirubin counts are elevated but has had similar values in two distant hospitalizations. LDH elevated. Leukocytosis. Influenza testing negative. Bush cultures pending. Monitor temperature trend. Patient denying any additional complaints at this time. Obtain abdominal X-ray. Patient without bowel movements for the past 2 days. Abdomen distended. Abdominal X-ray showing moderate constipation. Cultures negative at 48 hours so far. Continue Rocephin for now. MRCP incidentally found bilateral pneumonia. Afebrile for the past 48 hours today. Patient cough and sputum production resolved. On IV Vancomycin and Zosyn. Treatment for pneumonia based on incidental findings from MRCP. Temperature of 98.6 F. Afebrile the past 6 days. If patient remains afebrile, can consider a switch to oral Clindamycin 300mg PO q8hrs and Omnicef 300mg BID for 7-10 days more. No additional issues at this time. Bone marrow biopsy done on 09/01/2018. Noted pulmonary evaluation. Leukocytosis with mild elevation. Procalcitonin of 0.41 on 08/28/2018 and now 0.13 on 09/04/2018. Consider repeating Chest X-ray and/or CT chest. Monitor leukocytosis. Azithromycin added. Vancomycin stopped. Thank you for allowing me to participate in the care of the patient, we will follow with you.
--- NOTE | 2018-09-05 00:20 | CP.PCM.PN ---
Subjective - Date & Time of Evaluation Date of Evaluation: 09/04/18 Time of Evaluation: 10:45 - Subjective Subjective: Patient comfortable tolerating the diet no complaints of abdominal pain. Patient did have swallowing evaluation done spoke with the speech therapist Objective - Vital Signs/Intake and Output Vital Signs (last 24 hours): Temp Pulse Resp BP Pulse Ox 100.2 F H 102 H 20 115/81 93 L 09/04/18 22:38 09/04/18 22:38 09/04/18 22:38 09/04/18 22:38 09/04/18 22:38 Intake and Output: 09/04/18 09/05/18 18:59 06:59 Intake Total 400 Output Total 550 Balance -150 - Medications Medications: Current Medications Acetaminophen (Tylenol 325mg Tab) 650 mg PO Q4H PRN PRN Reason: Temp>100.4*F Last Admin: 09/04/18 21:29 Dose: 650 mg Acetylcysteine (Acetylcysteine 20%) 3 ml INH BIDRESP [facility] Last Admin: 09/04/18 19:17 Dose: 3 ml Arformoterol Tartrate (Brovana) 15 mcg IH [id number] [facility] Last Admin: 09/04/18 19:18 Dose: 15 mcg Aspirin (Ecotrin) 81 mg PO DAILY [facility] Last Admin: 09/04/18 09:10 Dose: 81 mg Budesonide (Pulmicort Respules) 0.5 mg IH [id number] [facility] Last Admin: 09/04/18 19:18 Dose: 0.5 mg Clonidine HCl (Catapres) 0.1 mg PO Q4 PRN PRN Reason: NEEDED FORSBP>160OR DBP>100 Folic Acid (Folic Acid) 1 mg PO DAILY [facility] Last Admin: 09/04/18 09:10 Dose: 1 mg Sodium Chloride (Sodium Chloride 0.45%) 1,000 mls @ 100 mls/hr IV .Q10H [facility] Last Admin: 09/04/18 09:09 Dose: 100 mls/hr Piperacillin Sod/Tazobactam Sod (Zosyn 3.375 In Ns 100ml) 100 mls @ 25 mls/hr IVPB Q8 [facility]; Protocol Stop: 09/05/18 01:59 Last Admin: 09/04/18 21:25 Dose: 25 mls/hr Azithromycin (Zithromax 500mg In Ns) 500 mg in 250 mls @ 250 mls/hr IVPB DAILY [facility]; Protocol Last Admin: 09/04/18 13:15 Dose: 250 mls/hr Pantoprazole Sodium (Protonix Ec Tab) 40 mg PO 0600 [facility] Last Admin: 09/04/18 05:33 Dose: 40 mg - Labs Labs: 09/04/18 07:00 09/04/18 07:00 PT 15.1 SECONDS (9.4-12.5) H 09/02/18 06:30 INR 1.34 09/02/18 06:30 APTT 35.2 Seconds (26.9-38.3) 08/22/18 22:30 - Constitutional Appears: Well, Non-toxic, No Acute Distress - Head Exam Head Exam: ATRAUMATIC, NORMOCEPHALIC - Eye Exam Eye Exam: EOMI, PERRL - ENT Exam ENT Exam: Mucous Membranes Moist, Normal External Ear Exam - Neck Exam Neck Exam: Full ROM. absent: Lymphadenopathy - Respiratory Exam Respiratory Exam: NORMAL BREATHING PATTERN. absent: Accessory Muscle Use - Cardiovascular Exam Cardiovascular Exam: +S1, +S2. absent: JVD - GI/Abdominal Exam GI & Abdominal Exam: Soft. absent: Tenderness, Mass - Neurological Exam Neurological Exam: Alert, Awake, Oriented x3 Assessment and Plan - Assessment and Plan (Free Text) Assessment: This 63-year-old patient was admitted with the fever cough/shortness of breath cough had a day was found to have a lung infiltrate and has an elevated LFTs and mainly indirect bilirubin suggestive of hemolytic process. Patient subsequently had a CT of the chest abdomen and pelvis done and found to have only lung i nfiltrate had a bone marrow biopsy is done to further evaluate the anemia thrombocytosis. Patient clinically better. This patient has lately minimal respiratory symptoms but the significant day lung infiltrate with a hemolytic process need to rule out mycoplasma pneumonia serology requested will discuss with ID again
[2018-09-05] MEDS: Pantoprazole 40 mg EC Tab PO SCH (05:16)
[2018-09-05] MEDS: Sodium Chloride 0.45% 1,000 ML IV SCH (05:48)
[2018-09-05] MEDS: Acetylcysteine 20% Inhal Soln (4ml) INH SCH ×2 (07:27→19:54)
[2018-09-05] MEDS: Arformoterol 15 mcg/2 ml Inh Sol IH SCH ×2 (07:27→19:54)
[2018-09-05] MEDS: Budesonide 0.5 mg/2 ml Inhal Susp UD IH SCH ×2 (07:27→19:54)
[2018-09-05] MEDS: Azithromycin 500MG/NS 250ml 500 MG/250 ML BAG IVPB SCH (09:51)
[2018-09-05] MEDS: Piperacillin/Tazobact 3.375 gm 100 ML IVPB SCH ×2 (13:06→21:18)
--- NOTE | 2018-09-05 13:39 | PN ---
DATE: 09/05/2018 PULMONARY PROGRESS NOTE REFERRING PHYSICIAN: Lizzy Alvares MD SUBJECTIVE: The patient is seen lying in bed. No acute distress. No overnight events reported. No headache, rhinitis, cough, shortness of breath, chest pain, abdominal pain, nausea, vomiting, diarrhea, leg pain or leg swelling reported. The patient had swallow evaluation done yesterday. Swallow evaluation showed no evidence of dysphagia or increased risk for aspiration with p.o. diet. OBJECTIVE: GENERAL: No acute distress. VITAL SIGNS: Blood pressure 108/73, pulse 91, temperature 98.4 and oxygen saturation 92% on room air. HEENT: Moist mucous membranes. Crowded airway. NECK: Supple. No JVD. CARDIOVASCULAR: S1 and S2. RESPIRATORY: Crackles bilateral bases. ABDOMEN: Soft and nontender. No distention. No organomegaly. EXTREMITIES: No bilateral lower extremity edema. NEUROLOGICAL: Awake, alert, verbal. Following commands. MEDICATIONS: Reviewed. Tylenol 650 every 4 hours p.r.n., for temperature greater than 100.4, Mucomyst 3 mL inhalation twice a day, Brovana 15 mcg inhalation every 12 hours, aspirin 81 mg daily, Zithromax 500 mg daily, Pulmicort 0.5 mg inhalation every 12 hours, clonidine 0.1 mg every 4 hours p.r.n., folic acid 1 mg daily, Protonix 40 mg daily and sodium chloride 0.45% a 1000 mL at 100 mL per hour. LABORATORY DATA: Reviewed. Procalcitonin 0.13, ESR 139 and C-reactive protein 61.10. IMPRESSION AND PLAN: Bibasilar infiltrate with weight loss, the patient lost about 40 to 50 pounds recently; anemia. Swallow evaluation done, no evidence of aspiration and dysphagia noted. The patient noted with high sed rate and high C-reactive protein, negative procalcitonin which helps to rule out bacterial pneumonia. The patient may need Rheumatology consult, we will order TB-Gold test. Human immunodeficiency virus testing results pending. At this time still no concrete diagnoses for infiltrates. Rheumatoid factor ALLISON pending. Continue inhaled bronchodilators. Gastric prophylaxis, sequential compression devices to bilateral lower extremity for deep venous thrombosis prophylaxis as the patient cannot be on chemical prophylaxis due to anemia status. We recommend physical therapy for this patient. Head of bed elevated at 45 degrees. This patient was seen and examined with Dr. Chang. Discussed assessment and plan as described above. This patient was seen and examined with Antonio Rascon, nurse practitioner. Discussed assessment and plan as described above. Thank you for this consult and we will follow with you. Antonio Rascon APN Joseluis Chang MD
--- NOTE | 2018-09-05 17:21 | CP.PCM.PN ---
Subjective - Date & Time of Evaluation Date of Evaluation: 09/05/18 Time of Evaluation: 16:00 - Subjective Subjective: Infectious Disease Follow Up: September 05, 2018 63 yo AA male with initial presentation for left sided stabbing chest pain while shopping the day prior to admission. The patient has a PMHx of Glaucoma and Degenerative Arthritis. He is on medical disability for a right leg injury that occurred at work several years ago. ID called for fevers up to 102.3 F in the past 24 hours. The patient had clear Chest X-rays, unremarkable urinalysis, and mild-mod leukocytosis. Bush cultures taken when fever up to 102.3 F. Occassional spikes of fever throughout the day yesterday and borderline temperatures today. Cultures negative so far at 48 hours. Patient is denying complaints. Abdominal X-ray showing moderate constipation. MRCP was done... strangely enough, incidental findings/signs of a bilateral pneumonia seen on the MRCP. Patient without fever for the last 4 days. A urine culture is showing <10,000 growth of gram positive cocci. No specific cause for the fevers found as of yet. Patient had complaints of cough and some sputum production. No specific new complaints. Temperature of 98.6 F today. WBC is 15.1. Hemoglobin has remained around 8.5- 8.9 the last few days. Patient with no complaints. Noted that patient had bone marrow biopsy two days ago. Chest X-ray noted. No additional issues. Procalcitonin showing a value of 0.13 which is lower than the initial 0.41 from 08/28/2018. The low procalcitonin value would argue against worsening of the previously seen pneumonia (on the MRCP) and argue for improvement. No leukocytosis. CRP is high at 61. ESR is 139. Mycoplasma Pneumonia of IgM negative. No new labs today. Objective - Vital Signs/Intake and Output Vital Signs (last 24 hours): Temp Pulse Resp BP Pulse Ox 98.7 F 93 H 20 113/74 97 09/05/18 14:00 09/05/18 14:00 09/05/18 14:00 09/05/18 14:00 09/05/18 14:00 Intake and Output: 09/05/18 09/05/18 06:59 18:59 Intake Total 1700 Output Total 1100 Balance 600 - Medications Medications: Current Medications Acetaminophen (Tylenol 325mg Tab) 650 mg PO Q4H PRN PRN Reason: Temp>100.4*F Last Admin: 09/04/18 21:29 Dose: 650 mg Acetylcysteine (Acetylcysteine 20%) 3 ml INH BIDRESP TA Last Admin: 09/05/18 07:27 Dose: 3 ml Arformoterol Tartrate (Brovana) 15 mcg IH [id number] TA Last Admin: 09/05/18 07:27 Dose: 15 mcg Aspirin (Ecotrin) 81 mg PO DAILY TA Last Admin: 09/05/18 09:51 Dose: 81 mg Budesonide (Pulmicort Respules) 0.5 mg IH [id number] TA Last Admin: 09/05/18 07:27 Dose: 0.5 mg Clonidine HCl (Catapres) 0.1 mg PO Q4 PRN PRN Reason: NEEDED FORSBP>160OR DBP>100 Folic Acid (Folic Acid) 1 mg PO DAILY TA Last Admin: 09/05/18 09:51 Dose: 1 mg Sodium Chloride (Sodium Chloride 0.45%) 1,000 mls @ 100 mls/hr IV .Q10H TA Last Admin: 09/05/18 05:48 Dose: 100 mls/hr Azithromycin (Zithromax 500mg In Ns) 500 mg in 250 mls @ 250 mls/hr IVPB DAILY [facility]; Protocol Last Admin: 09/05/18 09:51 Dose: 250 mls/hr Piperacillin Sod/Tazobactam Sod (Zosyn 3.375 In Ns 100ml) 100 mls @ 25 mls/hr IVPB Q8 TA; Protocol Stop: 09/06/18 01:59 Last Admin: 09/05/18 13:06 Dose: 25 mls/hr Pantoprazole Sodium (Protonix Ec Tab) 40 mg PO 0600 TA Last Admin: 09/05/18 05:16 Dose: 40 mg - Labs Labs: 09/04/18 07:00 09/04/18 07:00 PT 15.1 SECONDS (9.4-12.5) H 09/02/18 06:30 INR 1.34 09/02/18 06:30 APTT 35.2 Seconds (26.9-38.3) 08/22/18 22:30 - Constitutional Appears: Non-toxic, No Acute Distress, Chronically Ill - Head Exam Head Exam: ATRAUMATIC, NORMOCEPHALIC - Eye Exam Eye Exam: EOMI, PERRL Pupil Exam: NORMAL ACCOMODATION, PERRL - ENT Exam ENT Exam: Mucous Membranes Moist, Normal External Ear Exam, TM's Normal Bilaterally - Neck Exam Neck Exam: Full ROM, Meningismus - Respiratory Exam Respiratory Exam: Clear to Ausculation Bilateral, NORMAL BREATHING PATTERN. absent: Rales, Rhonchi, Wheezes - Cardiovascular Exam Cardiovascular Exam: REGULAR RHYTHM, RRR, +S1, +S2 - GI/Abdominal Exam GI & Abdominal Exam: Soft, Normal Bowel Sounds. absent: Distended, Tenderness - Extremities Exam Extremities Exam: Full ROM, Normal Inspection - Neurological Exam Neurological Exam: Alert, Awake, CN II-XII Intact, Oriented x3 - Psychiatric Exam Psychiatric exam: Normal Affect, Normal Mood - Skin Skin Exam: Intact, Normal Color Assessment and Plan - Assessment and Plan (Free Text) Assessment: 63 yo AA male with presentation for fevers up to 102.3 F in the past 24 hours when ID intially consulted where the patient initially presented to [facility] [place] for unstable angina. Urinalysis not indicative for UTI. Chest X-rays negative. S ome renal insufficiency. Bilirubin counts are elevated but has had similar values in two distant hospitalizations. LDH elevated. Leukocytosis. Influenza testing negative. Mycoplasma IgM negative. Bush cultures negative. Monitor temperature trend. Patient denying any additional complaints at this time. Obtain abdominal X-ray. Patient without bowel movements for the past 2 days. Abdomen distended. Abdominal X-ray showing moderate constipation. Cultures negative at 48 hours so far. Continue Rocephin for now. MRCP incidentally found bilateral pneumonia. Afebrile for the past 48 hours today. Patient cough and sputum production resolved. On IV Vancomycin and Zosyn. Treatment for pneumonia based on incidental findings from MRCP. Temperature of 98.6 F. Afebrile the past 7 days. Did note temperature up to 100.3 and 100.2 overnight. If patient remains afebrile, can consider a switch to oral Clindamycin 300mg PO q8hrs and Omnicef 300mg BID for 7-10 days more. No additional issues at this time. Bone marrow biopsy done on 09/01/2018. Noted pulmonary evaluation. Leukocytosis with mild elevation. Procalcitonin of 0.41 on 08/28/2018 and now 0.13 on 09/04/2018. Noted elevation of ESR of 139 and CRP of 61.10. Mycoplasma negative. Repeat CT chest to check for improvement or worsening. Monitor leukocytosis. On Zosyn and Azithromycin. HIV pending. Need confirmation on supposed weight loss as prior weight loss as the records in [facility] show weights between 170 to 180 lbs since 2015. Repeat CBC. Thank you for allowing me to participate in the care of the patient, we will follow with you.
[2018-09-06] MEDS: Pantoprazole 40 mg EC Tab PO SCH (05:39)
[2018-09-06] MEDS: Budesonide 0.5 mg/2 ml Inhal Susp UD IH SCH ×2 (07:10→19:17)
[2018-09-06] MEDS: Acetylcysteine 20% Inhal Soln (4ml) INH SCH ×2 (07:10→19:16)
[2018-09-06] MEDS: Arformoterol 15 mcg/2 ml Inh Sol IH SCH ×2 (07:10→19:16)
[2018-09-06] MEDS: Sodium Chloride 0.45% 1,000 ML IV SCH ×3 (09:04→14:09)
[2018-09-06 09:28] LABS: HEMOGLOBIN 8.6 g/dL (14.0-18.0); MEAN CORPUSCULAR HEMOGLOBIN 27.4 pg (25.0-35.0); MEAN CORPUSCULAR HGB CONC 34.7 g/dl (31.0-37.0); MEAN PLATELET VOLUME 8.8 fl (7.0-11.0); RBC 3.14 10^6/uL (3.5-6.1); RED CELL DISTRIBUTION WIDTH 21.7 % (11.5-14.5); WHITE BLOOD COUNT 13.8 10^3/uL (4.5-11.0)
[2018-09-06] MEDS: Azithromycin 500MG/NS 250ml 500 MG/250 ML BAG IVPB SCH ×2 (09:35→15:16)
[2018-09-06 09:37] LABS: BLOOD UREA NITROGEN 13 mg/dL (7-21); CALCIUM 9.3 mg/dL (8.4-10.5); GFR NON-AFRICAN AMERICAN > 60
--- NOTE | 2018-09-06 09:48 | PN ---
DATE: 09/05/2018 SUBJECTIVE: This 63-year-old male was examined at his bedside on the morning of Wednesday September 05, 2018. He was out of bed to chair. This case was reviewed with nurse, Carmen Cormier, registered nurse. The patient yesterday had a temperature max of 100.2. He still has no complaints of fever, chills, chest pain or productive cough. PHYSICAL EXAMINATION VITAL SIGNS: On physical exam temperature was 98.7, respirations 20, pulse 93 and blood pressure 113/74. HEENT: Head is normocephalic and atraumatic. Eyes: No icterus. Ears: Clear. Throat: Noninjected. NECK: Supple. HEART: S1 and S2. LUNGS: Decreased breath sounds at bases. ABDOMEN: Soft. EXTREMITIES: No edema. SKIN: Without rash. NEUROLOGICAL: Intact. PSYCHOLOGICAL: Alert. VASCULAR: Legs warm to touch. IMPRESSION: A 63-year-old male now with bibasilar infiltrates on chest x-ray and CT of the lung of unclear etiology with acute on chronic anemia with an iron deficiency component with endoscopy and colonoscopy placed on hold given high risk for aspiration pneumonia. PLAN: At present is to continue IV fluids, Mucomyst, Brovana inhalational therapy, p.r.n. clonidine for accelerated hypertension, Ecotrin, folic acid, Protonix, Pulmicort inhalational therapy and IV Zithromax. Based on the results of pending lab testing including rheumatoid factor ALLISON, QuantiFERON TB testing as well as HIV antibody additional diagnostic workup and testing will be entertained. I will plan for additional blood work and a follow-up chest x-ray in the morning. This case was reviewed with Dr. Giovanny Zavala from Interventional Radiology as well as Dr. Chang, from Pulmonary. Greater than 35 minutes was spent in his management today. All questions were answered. Lizzy Alvares MD JIA
--- NOTE | 2018-09-06 10:05 | RAD ---
Date of service: 09/06/2018 HISTORY: r/o pneumonia compare to previous COMPARISON: 09/02/2018 TECHNIQUE: Chest PA and lateral views FINDINGS: LUNGS: No significant change in bibasilar infiltrates left greater than right PLEURA: No significant pleural effusion identified. No pneumothorax apparent. CARDIOVASCULAR: Aortic calcification Normal cardiac size. No pulmonary vascular congestion. OSSEOUS STRUCTURES: No significant abnormalities. VISUALIZED UPPER ABDOMEN: Normal. OTHER FINDINGS: None. IMPRESSION: No significant change in bibasilar infiltrates left greater than right
--- NOTE | 2018-09-06 11:36 | PN ---
DATE: 09/04/2018 SUBJECTIVE: This 63-year-old male was examined at his bedside on the morning of 09/04/2018. Present for this interview was the patient, his mother and brother. The patient was out of bed to chair. He denied any fever, chills, chest pain, shortness of breath or active cough. PHYSICAL EXAMINATION VITAL SIGNS: He had a temperature of 98.6, respirations 20, pulse 88 and blood pressure 109/73, pulse ox 100% on room air. HEENT: Head: Normocephalic, atraumatic. Eyes: No icterus. Ears: Clear. Throat: Noninjected. NECK: Supple. HEART: S1, S2. LUNGS: Decreased breath sounds at the bases. ABDOMEN: Soft. EXTREMITIES: No edema. SKIN: Without rash. NEUROLOGIC: Intact. PSYCHOLOGIC: Alert. VASCULAR: Legs warm to touch. LABORATORY DATA: White count 15,100, hemoglobin 8.5, hematocrit 24.4, platelets 334,000. PT/INR 1.34. Sodium 143, K 4.0, chloride 110, bicarb 23, BUN 14, creatinine 1.3, random blood sugar 95, bilirubin 1.4. AST 72, ALT is 21, and alk phos 99. C-reactive protein elevated at 61.1. Procalcitonin level was low at 0.13. Mycoplasma pneumonia IgM antibodies are negative. IMPRESSION: A 63-year-old male with bibasilar pneumonia of unclear etiology and persistent leukocytosis as well as acute on chronic anemia with an iron deficiency component, paroxysmal hypertension. PLAN: The plan as discussed with the patient's family, Dr. Darrion Ansari from Infectious Disease will be to continue Zithromax 500 mg IV daily and he continues on Zosyn 3.375 g IV every [address] Ansari's direction. He is also ordered to receive Mucomyst, Brovana inhalational therapy, p.r.n. clonidine for paroxysmal hypertension, Ecotrin, folic acid, Protonix, Pulmicort inhalational therapy, 0.45 saline at 100 mL/hour and Tylenol p.r.n. pain. The patient is awaiting additional diagnostic testing including HIV, QuantiFERON-TB Gold plus serology testing, ALLISON and rheumatoid factors. Based on clinical results, additional diagnostic workup and testing will be entertained. Greater than 35 minutes was spent in the care management, review of labs, orders, x-rays and discussion of this patient with his family at bedside. All questions were answered. Lizzy Alvares MD
--- NOTE | 2018-09-06 14:46 | PN ---
DATE: 09/06/2018 SUBJECTIVE: This 63-year-old male was examined at his bedside on the morning of 09/06/2018. This case was reviewed with his nurse, Mariola, as well as nurse, La York, registered nurse. The patient is out of bed to chair. He has been running a low-grade fever since last evening of 99.2. He denies any shaking chills, chest pain or productive cough. PHYSICAL EXAMINATION: VITAL SIGNS: At present, he is comfortable off nasal O2 with a pulse ox of 96% room air, and temperature is 99.2, respirations 18, pulse 87 and blood pressure 123/84. HEENT: Head: Normocephalic, atraumatic. Eyes: No icterus. Ears: Clear. Throat: Noninjected. NECK: Supple. HEART: S1, S2. LUNGS: With occasional rhonchi at the base. ABDOMEN: Soft. EXTREMITIES: No edema. SKIN: Without rash. NEUROLOGICAL: Intact. PSYCHOLOGICAL: Alert. VASCULAR: Legs warm to touch. LABORATORY DATA: White count 13,800, hemoglobin 8.6, hematocrit 24.8, platelets 428,000. Sodium 142, K 4.3, chloride 108, bicarb 24, BUN 13, creatinine 1.1, random blood sugar 122 with a calcium of 9.3, bilirubin 1.4, AST 72, ALT 21, and alk phos 99. Mycoplasma pneumoniae IgM antibody is negative. HIV antibody is negative. Influenza A and B serologies were negative. Repeat chest x-ray performed this morning was reviewed. It shows no significant change in his bibasilar infiltrates, left greater than right, with no significant pleural effusion and no pneumothorax apparent. IMPRESSION AND PLAN: A 63-year-old male with atypical pneumonia of unclear etiology with minimal symptomatology but unclear etiology of cause. At present, his QuantiFERON(R)-TB Gold plus serology testing as well as ALLISON and rheumatoid factors remain pending. He continues on 0.45 saline at 100 mL/hour, Mucomyst inhalational therapy twice daily, Brovana inhalational therapy every 12 hours, clonidine 0.1 mg by mouth every four hours as needed for accelerated hypertension if his systolic blood pressure should be greater than 160 or his diastolic blood pressure should be greater than 100. He will continue on Ecotrin 81 mg by mouth daily, folic acid 1 mg by mouth daily, Protonix 40 mg by mouth daily, Pulmicort inhalational therapy every 12 hours, Zithromax 500 mg IV every 24 hours, heart healthy diet and physical therapy for reconditioning and gait training. I will discuss with Dr. Chang if the patient should be evaluated for possible CT-guided lung biopsy at this point given unclear cause for persistent leukocytosis, anemia and infiltrates on x-ray. This was discussed with the patient, his family, and nursing. Greater than 35 minutes was spent in the review of his chart today and discussion with co-consultants. All questions were answered. Lizzy Alvares MD MTDD
--- NOTE | 2018-09-06 17:00 | CP.PCM.PN ---
Subjective - Date & Time of Evaluation Date of Evaluation: 09/06/18 Time of Evaluation: 15:30 - Subjective Subjective: Infectious Disease Follow Up: September 06, 2018 63 yo AA male with initial presentation for left sided stabbing chest pain while shopping the day prior to admission. The patient has a PMHx of Glaucoma and Degenerative Arthritis. He is on medical disability for a right leg injury that occurred at work several years ago. ID called for fevers up to 102.3 F in the past 24 hours. The patient had clear Chest X-rays, unremarkable urinalysis, and mild-mod leukocytosis. Bush cultures taken when fever up to 102.3 F. Occassional spikes of fever throughout the day yesterday and borderline temperatures today. Cultures negative so far at 48 hours. Patient is denying complaints. Abdominal X-ray showing moderate constipation. MRCP was done... strangely enough, incidental findings/signs of a bilateral pneumonia seen on the MRCP. Patient without fever for the last 4 days. A urine culture is showing <10,000 growth of gram positive cocci. No specific cause for the fevers found as of yet. Patient had complaints of cough and some sputum production. No specific new complaints. Temperature of 98.6 F today. WBC is 15.1. Hemoglobin has remained around 8.5- 8.9 the last few days. Patient with no complaints. Noted that patient had bone marrow biopsy two days ago. Chest X-ray noted. No additional issues. Procalcitonin showing a value of 0.13 which is lower than the initial 0.41 from 08/28/2018. The low procalcitonin value would argue against worsening of the previously seen pneumonia (on the MRCP) and argue for improvement. No leukocytosis. CRP is high at 61. ESR is 139. Mycoplasma Pneumonia of IgM negative. WBC down to 13.8. Repeat Chest X-ray showing no changes. Objective - Vital Signs/Intake and Output Vital Signs (last 24 hours): Temp Pulse Resp BP Pulse Ox 98.5 F 94 H 18 110/76 94 L 09/06/18 14:00 09/06/18 14:00 09/06/18 14:00 09/06/18 14:00 09/06/18 14:00 - Medications Medications: Current Medications Acetaminophen (Tylenol 325mg Tab) 650 mg PO Q4H PRN PRN Reason: Temp>100.4*F Last Admin: 09/04/18 21:29 Dose: 650 mg Acetylcysteine (Acetylcysteine 20%) 3 ml INH BIDRESP TA Last Admin: 09/06/18 07:10 Dose: 3 ml Arformoterol Tartrate (Brovana) 15 mcg IH [id number] TA Last Admin: 09/06/18 07:10 Dose: 15 mcg Aspirin (Ecotrin) 81 mg PO DAILY TA Last Admin: 09/06/18 09:34 Dose: 81 mg Budesonide (Pulmicort Respules) 0.5 mg IH [id number] TA Last Admin: 09/06/18 07:10 Dose: 0.5 mg Clonidine HCl (Catapres) 0.1 mg PO Q4 PRN PRN Reason: NEEDED FORSBP>160OR DBP>100 Folic Acid (Folic Acid) 1 mg PO DAILY [facility] Last Admin: 09/06/18 09:33 Dose: 1 mg Sodium Chloride (Sodium Chloride 0.45%) 1,000 mls @ 100 mls/hr IV .Q10H [facility] Last Admin: 09/06/18 14:09 Dose: 100 mls/hr Azithromycin (Zithromax 500mg In Ns) 500 mg in 250 mls @ 250 mls/hr IVPB DAILY [facility]; Protocol Last Admin: 09/06/18 15:16 Dose: 250 mls/hr Pantoprazole Sodium (Protonix Ec Tab) 40 mg PO 0600 [facility] Last Admin: 09/06/18 05:39 Dose: 40 mg - Labs Labs: 09/06/18 09:00 09/06/18 09:00 PT 15.1 SECONDS (9.4-12.5) H 09/02/18 06:30 INR 1.34 09/02/18 06:30 APTT 35.2 Seconds (26.9-38.3) 08/22/18 22:30 - Constitutional Appears: Non-toxic, No Acute Distress, Chronically Ill - Head Exam Head Exam: ATRAUMATIC, NORMOCEPHALIC - Eye Exam Eye Exam: EOMI, PERRL Pupil Exam: NORMAL ACCOMODATION, PERRL - ENT Exam ENT Exam: Mucous Membranes Moist, Normal External Ear Exam, TM's Normal Bilaterally - Neck Exam Neck Exam: Full ROM, Normal Inspection - Respiratory Exam Respiratory Exam: Clear to Ausculation Bilateral, NORMAL BREATHING PATTERN. absent: Rales, Rhonchi, Wheezes - Cardiovascular Exam Cardiovascular Exam: REGULAR RHYTHM, RRR, +S1, +S2 - GI/Abdominal Exam GI & Abdominal Exam: Soft, Normal Bowel Sounds. absent: Distended, Tenderness - Extremities Exam Extremities Exam: Full ROM, Normal Inspection - Neurological Exam Neurological Exam: Alert, Awake, CN II-XII Intact, Oriented x3 - Psychiatric Exam Psychiatric exam: Normal Affect, Normal Mood - Skin Skin Exam: Intact, Normal Color Assessment and Plan - Assessment and Plan (Free Text) Assessment: 63 yo AA male with presentation for fevers up to 102.3 F in the past 24 hours when ID intially consulted where the patient initially presented to [facility] for unstable angina. Urinalysis not indicative for UTI. Chest X-rays negative. Some renal insufficiency. Bilirubin counts are elevated but has had similar values in two distant hospitalizations. LDH elevated. Leukocytosis. Influenza testing negative. Mycoplasma IgM negative. Bush cultures negative. Monitor temperature trend. Patient denying any additional complaints at this time. Obtain abdominal X-ray. Patient without bowel movements for the past 2 days. Abdomen distended. Abdominal X-ray showing moderate constipation. Cultures negative at 48 hours so far. Continue Rocephin for now. MRCP incidentally found bilateral pneumonia. Afebrile for the past 48 hours today. Patient cough and sputum production resolved. On IV Vancomycin and Zosyn. Treatment for pneumonia based on incidental findings from MRCP. Temperature of 98.6 F. Afebrile the past 7 days. Did note temperature up to 100.3 and 100.2 two nights ago. If patient remains afebrile, can consider a switch to oral Clindamycin 300mg PO q8hrs and Omnicef 300mg BID for 7-10 days more. No additional issues at this time. Bone marrow biopsy done on 09/01/2018. Noted pulmonary evaluation. Leukocytosis with mild elevation. Procalcitonin of 0.41 on 08/28/2018 and now 0.13 on 09/04/2018. Noted elevation of ESR of 139 and CRP of 61.10. Mycoplasma negative. Repeat CT chest to check for improvement or worsening. Monitor leukocytosis. On Zosyn and Azithromycin. HIV pending. Need confirmation on supposed weight loss as prior weight loss as the records in [facility] show weights between 170 to 180 lbs since 2015. Repeat CBC. WBC did improve to 13.8. Hgb remains at 8.6. High imflammatory markers. Thank you for allowing me to participate in the care of the patient, we will follow with you.
--- NOTE | 2018-09-06 17:31 | PN ---
DATE: 09/06/2018 PULMONARY PROGRESS NOTE REFERRING PHYSICIAN: Lizzy Alvares MD SUBJECTIVE: Seen sitting in armchair in room. Had low grade fever this morning. Reports feeling well during visit. No headache, rhinitis, cough, shortness of breath, chest pain, abdominal pain, nausea, vomiting, diarrhea, leg pain or leg swelling reported. OBJECTIVE: GENERAL: No acute distress. VITAL SIGNS: Blood pressure 110/76, pulse 94, temperature 98.5 and oxygen saturation 94% on room air. HEENT: Moist mucous membranes. Crowded airway. NECK: Supple. No JVD. CARDIOVASCULAR: S1 and S2. RESPIRATORY: Crackles bilateral bases. ABDOMEN: Soft and nontender. No distention. No organomegaly. EXTREMITIES: No bilateral lower extremity edema. NEUROLOGICAL: Awake, alert and verbal. Following commands. MEDICATIONS: Reviewed. Tylenol 650 every 4 hours p.r.n., for temperature greater than 100.4, Mucomyst 3 mL inhalation twice a day, Brovana 15 mcg every 12 hours, aspirin 81 mg daily, Zithromax 500 mg daily, Pulmicort 0.5 mg inhalation every 12 hours, clonidine 0.1 mg every 4 hours p.r.n., folic acid 1 mg p.o. daily, pantoprazole 40 mg daily and sodium chloride 1000 mL at 100 mL per hour. LABORATORY DATA: Reviewed. WBC 13.8, RBC 3.14, hemoglobin 8.6, hematocrit 24.8 and platelets 428. Sodium 142, potassium 4.3, chloride 108, carbon dioxide 24, anion gap 14, BUN 13, creatinine 1.1, GFR is greater than 60, random glucose 122 and calcium 9.3. Chest x-ray shows no significant change in bibasilar infiltrate left greater than right. IMPRESSION AND PLAN: Bibasilar infiltrate with weight loss, unclear etiology of cause, procalcitonin negative. The patient has been treated with antibiotics. Chest x-ray continues to show no change in bibasilar infiltrate, left greater than right. We will order consult with Dr. Giovanny Zavala for ultrasound guided thoracentesis of left chest cavity for diagnostic purposes, QuantiFERON-TB Gold, ALLISON and rheumatoid factors still pending. Continue inhaled bronchodilators. Gastric prophylaxis, sequential compression devices to bilateral lower extremity for deep venous thrombosis prophylaxis as the patient cannot be on chemical prophylaxis due to anemia. Need to have followup sed rate and C-reactive protein to ensure no connective tissue disease. We recommend possible rheumatology followup as outpatient. The patient will also need followup chest x-ray as outpatient to assurre stability and resolution of infiltrate. Fall precautions. Patient would benefit from physical therapy. This patient was seen and examined with Dr. Chang. Discussed assessment and plan as described above. This patient was seen and examined with Antonio Rascon, nurse practitioner. Discussed assessment and plan as described above. Thank you for this consult and we will follow with you. Antonio Rascon APN Joseluis Chang MD JIA
[2018-09-06] MEDS: Piperacillin/Tazobact 3.375 gm 100 ML IVPB SCH (21:13)
[2018-09-07] MEDS: Sodium Chloride 0.45% 1,000 ML IV SCH (05:04)
[2018-09-07] MEDS: Pantoprazole 40 mg EC Tab PO SCH (05:04)
[2018-09-07] MEDS: Piperacillin/Tazobact 3.375 gm 100 ML IVPB SCH ×3 (05:05→21:03)
[2018-09-07] MEDS: Acetylcysteine 20% Inhal Soln (4ml) INH SCH ×2 (07:40→19:40)
[2018-09-07] MEDS: Budesonide 0.5 mg/2 ml Inhal Susp UD IH SCH ×2 (07:42→19:40)
[2018-09-07] MEDS: Arformoterol 15 mcg/2 ml Inh Sol IH SCH ×2 (07:42→19:40)
[2018-09-07] MEDS: Azithromycin 500MG/NS 250ml 500 MG/250 ML BAG IVPB SCH (10:01)
--- NOTE | 2018-09-07 12:10 | PN ---
DATE: 09/07/2018 PULMONARY PROGRESS NOTE REFERRING PHYSICIAN: Lizzy Alvares MD SUBJECTIVE: The patient is seen sitting up in bed in no acute distress. No overnight events reported. The patient is afebrile. No headache, rhinitis, cough, shortness of breath, chest pain, abdominal pain, nausea, vomiting, diarrhea, leg pain, or leg swelling reported. OBJECTIVE: GENERAL: No acute distress. VITAL SIGNS: Blood pressure 116/80, pulse 88, temperature 98.2, oxygen saturation 99% on room air. HEENT: Moist mucous membranes. Crowded airway. NECK: Supple. No JVD. CARDIOVASCULAR: S1 and S2. RESPIRATORY: Crackles, bilateral bases. ABDOMEN: Soft, nontender. No distension. No organomegaly. EXTREMITIES: No bilateral lower extremity edema. NEUROLOGIC: Awake, alert, verbal. Following commands. MEDICATIONS: Reviewed. Tylenol 650 mg every 4 hours p.r.n., for temperature greater than 100.4, Mucomyst 3 mL inhalation twice a day, Brovana 15 mcg inhalation every 12 hours, aspirin 81 mg daily, Zithromax 500 mg daily, Pulmicort 0.5 mg inhalation every 12 hours, clonidine 0.1 mg every 4 hours p.r.n. as needed, folic acid 1 mg daily, Protonix 40 mg daily, Zosyn 3.375 g every 8 hours, sodium chloride 0.45% 1000 mL at 100 mL per hour. LABORATORY DATA: Reviewed. No new labs since yesterday. IMPRESSION AND PLAN: Bilateral infiltrate with weight loss, unclear etiology. Procalcitonin negative. The patient is asymptomatic, has been treated with antibiotics. Chest x-ray still shows no change in bibasilar infiltrate left greater than right. TB Gold, ALLISON, rheumatoid factor pending. We recommend the patient have Rheumatology followup as outpatient due to elevated C-reactive protein, sed rate. From a Pulmonary point of view, the patient appears stable at this time. He has clinically improved and is okay for discharge. He will need close followup as outpatient. The patient is possibly pending ultrasound-guided thoracentesis today. We recommend the patient have followup chest x-ray as outpatient to assure stability and resolution of infiltrate. Dr. Chang discussed the case with Dr. Alvares and Dr. Giovanny Zavala. Fall precautions. Continue inhaled bronchodilators. Gastric prophylaxis. Sequential compression devices to bilateral lower extremities. Deep venous thrombosis prophylaxis. The patient cannot be on chemical prophylaxis due to anemia. The patient was seen and examined with Dr. Chang. Discussed assessment and plan as described above. The patient was seen and examined with Antonio Rascon, nurse practitioner. Discussed assessment and plan as described above. Thank you for this consult. We will follow with you. Antonio Rascon APN Joseluis Chang MD
--- NOTE | 2018-09-07 12:29 | PN ---
DATE: 09/07/2018 SUBJECTIVE: This 63-year-old male was examined at his bedside on the morning of 09/07/2018. This case was reviewed in detail with Dr. Giovanny Zavala from Interventional Radiology. The patient has persistent infiltrates at the base of both lungs in the absence of any significant pulmonary complaints including shortness of breath or productive cough. The patient to date remains on IV Zofran and IV Zithromax under the direction of Dr. Darrion Ansari from Infectious Disease. I have discussed this case with Dr. Zavala. He is willing to do a thoracentesis for pleural fluid examination of this patient and states that if this does not clarify his pulmonary abnormality, he will require a bronchoscopy and possible transbronchial lung biopsy. PHYSICAL EXAMINATION: GENERAL: The patient was alert and oriented, denying any fever, chills, chest pain or shortness of breath. VITAL SIGNS: No fever in the past 24 hours. Temperature is 98.2, respirations 20, pulse 88 and blood pressure 116/80 with a pulse ox of 99% room air. Physical exam remains unchanged. LABORATORY DATA: White count 13,800, hemoglobin 8.6, hematocrit 24.8, platelets 428,000. Sodium 142, K 4.3, chloride 108, bicarb 24, BUN 13, creatinine 1.1, random blood sugar 122 with a calcium of 9.3. Urinalysis is unremarkable. Mycoplasma pneumoniae IgM antibodies are negative. Influenza antibodies are negative. HIV antibodies are negative. Hepatitis C, B and A antibodies show no acute IgM antibody positivity. Bone marrow biopsy remains pending. IMPRESSION: A 63-year-old male with persistent bibasilar infiltrates on chest x-ray of unclear etiology with comorbidities of iron-deficiency anemia, acute on chronic anemia. Bone marrow biopsy done by Dr. Rg Brenner pending. PLAN: Continue IV Zosyn, IV Zithromax, oral Tylenol, gentle IV fluids, inhalational Pulmicort, oral Protonix, folic acid, Ecotrin, p.r.n. clonidine, inhalational Brovana and Mucomyst. Based on results of thoracentesis, as described, we will track down the results of his QuantiFERON TB testing, ALLISON and rheumatoid factors. He will be scheduled for a basic metabolic panel and CBC in the a.m. We will check the results of his bone marrow biopsy and consider bronchoscopy and transbronchial biopsy. Greater than 35 minutes was spent in the care management, review of labs, orders, x-rays, and discussion of this patient with himself and co-consultants. All questions were answered. Lizzy Alvares MD MTDD
--- NOTE | 2018-09-07 16:54 | US ---
Date of service: 09/07/2018 PROCEDURE: Bilateral chest ultrasound HISTORY: Airspace disease. Evaluate for pleural effusion. Needs diagnostic thoracentesis COMPARISON: TECHNIQUE: The patient was placed in a sitting position sonography of both chest performed from a posterior approach. FINDINGS: No effusion is appreciated bilaterally. IMPRESSION: No effusion by ultrasound evaluation A repeat chest CT is recommended to evaluate the airspace disease. If unchanged or progressing, bronchoscopy may be useful
--- NOTE | 2018-09-07 17:38 | CP.PCM.PN ---
Subjective - Date & Time of Evaluation Date of Evaluation: 09/07/18 Time of Evaluation: 15:00 - Subjective Subjective: Infectious Disease Follow Up: September 07, 2018 63 yo AA male with initial presentation for left sided stabbing chest pain while shopping the day prior to admission. The patient has a PMHx of Glaucoma and Degenerative Arthritis. He is on medical disability for a right leg injury that occurred at work several years ago. ID called for fevers up to 102.3 F in the past 24 hours. The patient had clear Chest X-rays, unremarkable urinalysis, and mild-mod leukocytosis. Bush cultures taken when fever up to 102.3 F. Occassional spikes of fever throughout the day yesterday and borderline temperatures today. Cultures negative so far at 48 hours. Patient is denying complaints. Abdominal X-ray showing moderate constipation. MRCP was done... strangely enough, incidental findings/signs of a bilateral pneumonia seen on the MRCP. Patient without fever for the last 4 days. A urine culture is showing <10,000 growth of gram positive cocci. No specific cause for the fevers found as of yet. Patient had complaints of cough and some sputum production. No specific new complaints. Temperature of 98.6 F today. WBC is 15.1. Hemoglobin has remained around 8.5- 8.9 the last few days. Patient with no complaints. Noted that patient had bone marrow biopsy two days ago. Chest X-ray noted. No additional issues. Procalcitonin showing a value of 0.13 which is lower than the initial 0.41 from 08/28/2018. The low procalcitonin value would argue against worsening of the previously seen pneumonia (on the MRCP) and argue for improvement. No leukocytosis. CRP is high at 61. ESR is 139. Mycoplasma Pneumonia of IgM negative. WBC down to 13.8. Repeat Chest X-ray showing no changes. HIV negative. Objective - Vital Signs/Intake and Output Vital Signs (last 24 hours): Temp Pulse Resp BP Pulse Ox 98 F 90 20 112/76 95 09/07/18 14:00 09/07/18 14:00 09/07/18 14:00 09/07/18 14:00 09/07/18 14:00 Intake and Output: 09/07/18 09/07/18 06:59 18:59 Intake Total 720 Output Total 500 Balance 220 - Medications Medications: Current Medications Acetaminophen (Tylenol 325mg Tab) 650 mg PO Q4H PRN PRN Reason: Temp>100.4*F Last Admin: 09/04/18 21:29 Dose: 650 mg Acetylcysteine (Acetylcysteine 20%) 3 ml INH BIDRESP TA Last Admin: 09/07/18 07:40 Dose: 3 ml Arformoterol Tartrate (Brovana) 15 mcg IH [id number] TA Last Admin: 09/07/18 07:42 Dose: 15 mcg Aspirin (Ecotrin) 81 mg PO DAILY TA Last Admin: 09/07/18 10:01 Dose: 81 mg Budesonide (Pulmicort Respules) 0.5 mg IH [id number] TA Last Admin: 09/07/18 07:42 Dose: 0.5 mg Clonidine HCl (Catapres) 0.1 mg PO Q4 PRN PRN Reason: NEEDED FORSBP>160OR DBP>100 Folic Acid (Folic Acid) 1 mg PO DAILY TA Last Admin: 09/07/18 10:02 Dose: 1 mg Sodium Chloride (Sodium Chloride 0.45%) 1,000 mls @ 100 mls/hr IV .Q10H TA Last Admin: 09/07/18 05:04 Dose: 100 mls/hr Azithromycin (Zithromax 500mg In Ns) 500 mg in 250 mls @ 250 mls/hr IVPB DAILY TA; Protocol Last Admin: 09/07/18 10:01 Dose: 250 mls/hr Piperacillin Sod/Tazobactam Sod (Zosyn 3.375 In Ns 100ml) 100 mls @ 25 mls/hr IVPB Q8 TA; Protocol Stop: 09/08/18 17:59 Last Admin: 09/07/18 14:28 Dose: 25 mls/hr Pantoprazole Sodium (Protonix Ec Tab) 40 mg PO 0600 TA Last Admin: 09/07/18 05:04 Dose: 40 mg - Labs Labs: 09/06/18 09:00 09/06/18 09:00 PT 15.1 SECONDS (9.4-12.5) H 09/02/18 06:30 INR 1.34 09/02/18 06:30 APTT 35.2 Seconds (26.9-38.3) 04/07/19 22:30 - Constitutional Appears: Non-toxic, No Acute Distress, Chronically Ill - Head Exam Head Exam: ATRAUMATIC, NORMOCEPHALIC - Eye Exam Eye Exam: EOMI, PERRL Pupil Exam: NORMAL ACCOMODATION, PERRL - ENT Exam ENT Exam: Mucous Membranes Moist, Normal External Ear Exam, TM's Normal Bilaterally - Neck Exam Neck Exam: Full ROM, Normal Inspection - Respiratory Exam Respiratory Exam: Clear to Ausculation Bilateral, NORMAL BREATHING PATTERN. a bsent: Rales, Rhonchi, Wheezes - Cardiovascular Exam Cardiovascular Exam: REGULAR RHYTHM, RRR, +S1, +S2 - GI/Abdominal Exam GI & Abdominal Exam: Soft, Normal Bowel Sounds. absent: Distended, Tenderness - Extremities Exam Extremities Exam: Full ROM, Normal Inspection - Neurological Exam Neurological Exam: Alert, Awake, CN II-XII Intact, Oriented x3 - Psychiatric Exam Psychiatric exam: Normal Affect, Normal Mood - Skin Skin Exam: Intact, Normal Color Assessment and Plan - Assessment and Plan (Free Text) Assessment: 63 yo AA male with presentation for fevers up to 102.3 F in the past 24 hours w norberto DUARTE intially consulted where the patient initially presented to [facility] for unstable angina. Urinalysis not indicative for UTI. Chest X-rays negative. Some renal insufficiency. Bilirubin counts are elevated but has had similar values in two distant hospitalizations. LDH elevated. Leukocytosis. Influenza testing negative. Mycoplasma IgM negative. Bush cultures negative. Monitor temperature trend. Patient denying any additional complaints at this time. Obtain abdominal X-ray. Patient without bowel movements for the past 2 days. Abdomen distended. Abdominal X-ray showing moderate constipation. Cultures negative at 48 hours so far. Continue Rocephin for now. MRCP incidentally fou nd bilateral pneumonia. Afebrile for the past 48 hours today. Patient cough and sputum production resolved. On IV Vancomycin and Zosyn. Treatment for pneumonia based on incidental findings from MRCP. Temperature of 98.6 F. Afebrile the past 7 days. Did note temperature up to 100.3 and 100.2 two nights ago. If patient remains afebrile, can consider a switch to oral Clindamycin 300mg PO q8hrs and Omnicef 300mg BID for 7-10 days more. No additional issues at this time. Bone marrow biopsy done on 09/01/2018. Noted pulmonary evaluation. Leukocytosis with mild elevation. Procalcitonin of 0.41 on 08/28/2018 and now 0.13 on 09/04/2018. Noted elevation of ESR of 139 and CRP of 61.10. Mycoplasma negative. Repeat CT chest to check for improvement or worsening. Monitor leukocytosis. On Zosyn and Azithromycin. HIV pending. Need confirmation on supposed weight loss as prior weight loss as the records in [facility] show weights between 170 to 180 lbs since 2014. Repeat CBC. WBC did improve to 13.8. Hgb remains at 8.6. High imflammatory markers. HIV negative. Thank you for allowing me to participate in the care of the patient, we will follow with you.
--- NOTE | 2018-09-07 23:43 | CP.PCM.PN ---
Subjective - Date & Time of Evaluation Date of Evaluation: 09/07/18 Time of Evaluation: 11:00 - Subjective Subjective: Feeling better no complaints of abdominal pain tolerating the diet. No bleeding. pr Or melena Objective - Vital Signs/Intake and Output Vital Signs (last 24 hours): Temp Pulse Resp BP Pulse Ox 98.7 F 85 18 117/73 99 09/07/18 22:20 09/07/18 22:20 09/07/18 22:20 09/07/18 22:20 09/07/18 22:20 Intake and Output: 09/07/18 09/08/18 18:59 06:59 Intake Total 480 Output Total 300 Balance 180 - Medications Medications: Current Medications Acetaminophen (Tylenol 325mg Tab) 650 mg PO Q4H PRN PRN Reason: Temp>100.4*F Last Admin: 09/04/18 21:29 Dose: 650 mg Acetylcysteine (Acetylcysteine 20%) 3 ml INH BIDRESP [facility] Last Admin: 09/07/18 19:40 Dose: 3 ml Arformoterol Tartrate (Brovana) 15 mcg IH [id number] [facility] Last Admin: 09/07/18 19:40 Dose: 15 mcg Aspirin (Ecotrin) 81 mg PO DAILY [facility] Last Admin: 09/07/18 10:01 Dose: 81 mg Budesonide (Pulmicort Respules) 0.5 mg IH [id number] [facility] Last Admin: 09/07/18 19:40 Dose: 0.5 mg Clonidine HCl (Catapres) 0.1 mg PO Q4 PRN PRN Reason: NEEDED FORSBP>160OR DBP>100 Folic Acid (Folic Acid) 1 mg PO DAILY [facility] Last Admin: 09/07/18 10:02 Dose: 1 mg Sodium Chloride (Sodium Chloride 0.45%) 1,000 mls @ 100 mls/hr IV .Q10H [facility] Last Admin: 09/07/18 05:04 Dose: 100 mls/hr Azithromycin (Zithromax 500mg In Ns) 500 mg in 250 mls @ 250 mls/hr IVPB DAILY [facility]; Protocol Last Admin: 09/07/18 10:01 Dose: 250 mls/hr Piperacillin Sod/Tazobactam Sod (Zosyn 3.375 In Ns 100ml) 100 mls @ 25 mls/hr IVPB Q8 [facility]; Protocol Stop: 09/08/18 17:59 Last Admin: 09/07/18 21:03 Dose: 25 mls/hr Pantoprazole Sodium (Protonix Ec Tab) 40 mg PO 0600 [facility] Last Admin: 09/07/18 05:04 Dose: 40 mg - Labs Labs: 09/06/18 09:00 09/06/18 09:00 PT 15.1 SECONDS (9.4-12.5) H 09/02/18 06:30 INR 1.34 09/02/18 06:30 APTT 35.2 Seconds (26.9-38.3) 08/22/18 22:30 - Head Exam Head Exam: ATRAUMATIC, NORMOCEPHALIC - Eye Exam Eye Exam: EOMI Pupil Exam: PERRL - ENT Exam ENT Exam: Mucous Membranes Moist - Respiratory Exam Respiratory Exam: Respiratory Distress, NORMAL BREATHING PATTERN. absent: Rales - Cardiovascular Exam Cardiovascular Exam: +S1, +S2. absent: JVD - GI/Abdominal Exam GI & Abdominal Exam: Soft. absent: Tenderness, Mass - Extremities Exam Extremities Exam: absent: Pedal Edema, Tenderness - Neurological Exam Neurological Exam: Alert, Awake, Oriented x3 Assessment and Plan - Assessment and Plan (Free Text) Assessment: This 63-year-old patient was admitted with the fever cough/shortness of breath cough had a day was found to have a lung infiltrate and has an elevated LFTs and mainly indirect bilirubin suggestive of hemolytic process. Patient subsequently had a CT of the chest abdomen and pelvis done and found to have only lung infiltrate had a bone marrow biopsy is done to further evaluate the anemia thrombocytosis. Patient clinically better. This patient has lately minimal respiratory symptoms but the significant day lung infiltrate with a hemolytic process Mycoplasma IgM antibody was negative. Patient did have an EGD and a colonoscopy done in [place]. Advised the patient to get the records. Patient has no active bleeding at the present time no acute abdominal pathology and is reasonable to review the patient's previous endoscopy procedure report before considering further work-up including repeat endoscopy evaluation
[2018-09-08] MEDS: Pantoprazole 40 mg EC Tab PO SCH (06:01)
[2018-09-08] MEDS: Piperacillin/Tazobact 3.375 gm 100 ML IVPB SCH ×2 (06:01→16:25)
[2018-09-08 06:46] LABS: HEMOGLOBIN 8.4 g/dL (14.0-18.0); MEAN CELL VOLUME 77.9 fl (80.0-105.0); MEAN CORPUSCULAR HEMOGLOBIN 26.5 pg (25.0-35.0); MEAN PLATELET VOLUME 8.6 fl (7.0-11.0); RBC 3.17 10^6/uL (3.5-6.1); RED CELL DISTRIBUTION WIDTH 21.9 % (11.5-14.5)
[2018-09-08 07:19] LABS: CALCIUM 9.2 mg/dL (8.4-10.5)
[2018-09-08] MEDS: Acetylcysteine 20% Inhal Soln (4ml) INH SCH ×2 (07:24→20:26)
[2018-09-08] MEDS: Arformoterol 15 mcg/2 ml Inh Sol IH SCH ×2 (07:24→20:26)
[2018-09-08] MEDS: Budesonide 0.5 mg/2 ml Inhal Susp UD IH SCH ×2 (07:24→20:26)
[2018-09-08] MEDS: Sodium Chloride 0.45% 1,000 ML IV SCH (10:29)
--- NOTE | 2018-09-08 10:56 | CP.PCM.PN ---
Subjective - Date & Time of Evaluation Date of Evaluation: 09/08/18 Time of Evaluation: 10:54 - Subjective Subjective: Providing medicine coverage for Dr. Alvares: Patient reports feeling well; no sob; tolerating diet well; no nausea/vomiting/diarrhea; reporting frequent urination lately, no dysuria; no chest pain/palpitations; Objective - Vital Signs/Intake and Output Vital Signs (last 24 hours): Temp Pulse Resp BP Pulse Ox 99.5 F 109 H 99 H 118/79 99 09/08/18 06:00 09/08/18 06:00 09/08/18 06:00 09/08/18 06:00 09/07/18 22:20 Intake and Output: 09/08/18 09/08/18 06:59 18:59 Intake Total 480 Output Total 940 Balance -460 - Medications Medications: Current Medications Acetylcysteine (Acetylcysteine 20%) 3 ml INH BIDRESP TA Last Admin: 09/08/18 07:24 Dose: 3 ml Arformoterol Tartrate (Brovana) 15 mcg IH [id number] TA Last Admin: 09/08/18 07:24 Dose: 15 mcg Budesonide (Pulmicort Respules) 0.5 mg IH [id number] TA Last Admin: 09/08/18 07:24 Dose: 0.5 mg Clonidine HCl (Catapres) 0.1 mg PO Q4 PRN PRN Reason: NEEDED FORSBP>160OR DBP>100 Sodium Chloride (Sodium Chloride 0.45%) 1,000 mls @ 100 mls/hr IV .Q10H TA Last Admin: 09/08/18 10:29 Dose: 100 mls/hr Azithromycin (Zithromax 500mg In Ns) 500 mg in 250 mls @ 250 mls/hr IVPB DAILY TA; Protocol Last Admin: 09/07/18 10:01 Dose: 250 mls/hr Piperacillin Sod/Tazobactam Sod (Zosyn 3.375 In Ns 100ml) 100 mls @ 25 mls/hr IVPB Q8 TA; Protocol Stop: 09/08/18 17:59 Last Admin: 09/08/18 06:01 Dose: 25 mls/hr Pantoprazole Sodium (Protonix Ec Tab) 40 mg PO 0600 TA Last Admin: 09/08/18 06:01 Dose: 40 mg - Labs Labs: 04/24/19 06:00 09/08/18 06:00 PT 15.1 SECONDS (9.4-12.5) H 09/02/18 06:30 INR 1.34 09/02/18 06:30 APTT 35.2 Seconds (26.9-38.3) 08/22/18 22:30 - Constitutional Appears: Non-toxic, No Acute Distress - Eye Exam Eye Exam: Normal appearance - ENT Exam ENT Exam: Mucous Membranes Moist - Respiratory Exam Respiratory Exam: absent: Respiratory Distress Additional comments: mild rales at R base; - Cardiovascular Exam Cardiovascular Exam: RRR, +S1, +S2. absent: JVD Additional comments: 2+ b/l DP pulses - GI/Abdominal Exam GI & Abdominal Exam: Soft. absent: Distended, Tenderness - Exam Exam: absent: Bladder Distension - Extremities Exam Additional comments: no leg edema; - Neurological Exam Neurological Exam: Alert, Awake - Psychiatric Exam Psychiatric exam: Normal Affect, Normal Mood. absent: Agitated - Skin Skin Exam: Warm. absent: Cyanosis Assessment and Plan (1) Abnormal chest CT Assessment & Plan: Patient initially presenting with L sided stabbing chest pain with associated sob, chest CT showed bi-basilar consolidations and some pleural effusion; went to get diagnostic thoracentesis yesterday but no pleural fluid seen on US; elevated markers of inflammation noted (ESR/CRP), however, no specific cause found to date; pulm input noted, patient ready for d/c from their end with close outpatient f/u; ID stopping zosyn today, continuing azithromycin; PNA felt to be less likely given low procalcitonin level; patient also is symptomatically improved; -will f/u RF Status: Acute (2) Anemia Assessment & Plan: Microcytic anemia of unclear etiology; high ferritin level also indicative of ongoing inflammatory state; awaiting bone marrow biopsy results; will f/u with heme; Status: Acute (3) Acute kidney injury Assessment & Plan: New finding on labs today with serum creatinine increasing from 1.1 -> 1.7 although it had been as high as 1.5 during this admission; no hematuria/albuminuria on UA but will repeat UA and obtain urine lytes; Status: Acute (4) DVT prophylaxis Assessment & Plan: Will avoid heparin given anemia; -SCD; Status: Acute
[2018-09-08] MEDS: Azithromycin 500MG/NS 250ml 500 MG/250 ML BAG IVPB SCH (10:58)
--- NOTE | 2018-09-08 16:09 | CP.PCM.PN ---
Subjective - Date & Time of Evaluation Date of Evaluation: 09/08/18 Time of Evaluation: 15:00 - Subjective Subjective: Infectious Disease Follow Up: September 08, 2018 63 yo AA male with initial presentation for left sided stabbing chest pain while shopping the day prior to admission. The patient has a PMHx of Glaucoma and Degenerative Arthritis. He is on medical disability for a right leg injury that occurred at work several years ago. ID called for fevers up to 102.3 F in the past 24 hours. The patient had clear Chest X-rays, unremarkable urinalysis, and mild-mod leukocytosis. Bush cultures taken when fever up to 102.3 F. Occassional spikes of fever throughout the day yesterday and borderline temperatures today. Cultures negative so far at 48 hours. Patient is denying complaints. Abdominal X-ray showing moderate constipation. MRCP was done... strangely enough, incidental findings/signs of a bilateral pneumonia seen on the MRCP. Patient without fever for the last 4 days. A urine culture is showing <10,000 growth of gram positive cocci. No specific cause for the fevers found as of yet. Patient had complaints of cough and some sputum production. No specific new complaints. Temperature of 98.6 F today. WBC is 15.1. Hemoglobin has remained around 8.5- 8.9 the last few days. Patient with no complaints. Noted that patient had bone marrow biopsy two days ago. Chest X-ray noted. No additional issues. Procalcitonin showing a value of 0.13 which is lower than the initial 0.41 from 08/28/2018. The low procalcitonin value would argue against worsening of the previously seen pneumonia (on the MRCP) and argue for improvement. No leukocytosis. CRP is high at 61. ESR is 139. Mycoplasma Pneumonia of IgM negative. WBC down to 14.0. Repeat Chest X-ray showing no changes. HIV negative. ALLISON positive at 1:40 speckled. Objective - Vital Signs/Intake and Output Vital Signs (last 24 hours): Temp Pulse Resp BP Pulse Ox 98.8 F 82 20 124/83 99 09/08/18 11:30 09/08/18 11:30 09/08/18 11:30 09/08/18 11:30 09/07/18 22:20 Intake and Output: 09/08/18 09/08/18 06:59 18:59 Intake Total 480 Output Total 940 Balance -460 - Medications Medications: Current Medications Acetylcysteine (Acetylcysteine 20%) 3 ml INH BIDRESP TA Last Admin: 09/08/18 07:24 Dose: 3 ml Arformoterol Tartrate (Brovana) 15 mcg IH [id number] TA Last Admin: 09/08/18 07:24 Dose: 15 mcg Budesonide (Pulmicort Respules) 0.5 mg IH [id number] TA Last Admin: 09/08/18 07:24 Dose: 0.5 mg Clonidine HCl (Catapres) 0.1 mg PO Q4 PRN PRN Reason: NEEDED FORSBP>160OR DBP>100 Sodium Chloride (Sodium Chloride 0.45%) 1,000 mls @ 100 mls/hr IV .Q10H TA Last Admin: 09/08/18 10:29 Dose: 100 mls/hr Azithromycin (Zithromax 500mg In Ns) 500 mg in 250 mls @ 250 mls/hr IVPB DAILY TA; Protocol Last Admin: 09/08/18 10:58 Dose: 250 mls/hr Piperacillin Sod/Tazobactam Sod (Zosyn 3.375 In Ns 100ml) 100 mls @ 25 mls/hr IVPB Q8 TA; Protocol Stop: 09/08/18 17:59 Last Admin: 09/08/18 06:01 Dose: 25 mls/hr Pantoprazole Sodium (Protonix Ec Tab) 40 mg PO 0600 TA Last Admin: 09/08/18 06:01 Dose: 40 mg - Labs Labs: 09/08/18 06:00 09/08/18 06:00 PT 15.1 SECONDS (9.4-12.5) H 09/02/18 06:30 INR 1.34 09/02/18 06:30 APTT 35.2 Seconds (26.9-38.3) 08/22/18 22:30 - Constitutional Appears: Non-toxic, No Acute Distress, Chronically Ill - Head Exam Head Exam: ATRAUMATIC, NORMOCEPHALIC - Eye Exam Eye Exam: EOMI, PERRL Pupil Exam: NORMAL ACCOMODATION, PERRL - ENT Exam ENT Exam: Mucous Membranes Moist, Normal External Ear Exam, TM's Normal Bilaterally - Neck Exam Neck Exam: Full ROM, Normal Inspection - Respiratory Exam Respiratory Exam: Clear to Ausculation Bilateral, NORMAL BREATHING PATTERN. absent: Rales, Rhonchi, Wheezes - Cardiovascular Exam Cardiovascular Exam: REGULAR RHYTHM, RRR, +S1, +S2 - GI/Abdominal Exam GI & Abdominal Exam: Soft, Normal Bowel Sounds. absent: Tenderness, Diminished Bowel Sounds - Extremities Exam Extremities Exam: Full ROM, Normal Inspection - Neurological Exam Neurological Exam: Alert, Awake, CN II-XII Intact, Oriented x3 - Psychiatric Exam Psychiatric exam: Normal Affect, Normal Mood - Skin Skin Exam: Intact, Normal Color Assessment and Plan - Assessment and Plan (Free Text) Assessment: 63 yo AA male with presentation for fevers up to 102.3 F in the past 24 hours when ID intially consulted where the patient initially presented to [facility] for unstable angina. Urinalysis not indicative for UTI. Chest X-rays negative. Some renal insufficiency. Bilirubin counts are elevated but has had similar values in two distant hospitalizations. LDH elevated. Leukocytosis. Influenza testing negative. Mycoplasma IgM negative. Bush cultures negative. Monitor temperature trend. Patient denying any additional complaints at this time. Obtain abdominal X-ray. Patient without bowel movements for the past 2 days. Abdomen distended. Abdominal X-ray showing moderate constipation. Cultures negative at 48 hours so far. Continue Rocephin for now. MRCP incidentally found bilateral pneumonia. Afebrile for the past 48 hours today. Patient cough and sputum production resolved. On IV Vancomycin and Zosyn. Treatment for pneumonia based on incidental findings from MRCP. Temperature of 98.6 F. Afebrile the past 7 days. Did note temperature up to 100.3 and 100.2 two nights ago. If patient remains afebrile, was originally considering a switch to oral Clindamycin 300mg PO q8hrs and Omnicef 300mg BID for 7-10 days more but the patient remained in the hospital on IV antibiotics for nearing this time... he will not need additional antibiotics on discharge at this point. No additional issues at this time. Bone marrow biopsy done on 09/01/2018. Noted pulmonary evaluation. Leukocytosis with mild elevation. Procalcitonin of 0.41 on 08/28/2018 and now 0.13 on 09/04/2018. Noted elevation of ESR of 139 and CRP of 61.10. Mycoplasma negative. Repeat CT chest to check for improvement or worsening. Monitor leukocytosis. On Zosyn and Azithromycin. HIV pending. Need confirmation on supposed weight loss as prior weight loss as the records in [facility] show weights between 170 to 180 lbs since 2015. Repeat CBC. WBC did improve to 14.0. Hgb remains at 8.4. High imflammatory markers. HIV negative. ALLISON positive with 1:40 ratio and speckled morphology. At this time, the patient is nearly completed with IV antibiotics and will not need further oral antibiotics when medical cleared for discharge. From an ID perspective, the patient is clear for discharge for ID issues. Thank you for allowing me to participate in the care of the patient, we will follow with you.
--- NOTE | 2018-09-08 16:28 | PN ---
DATE: 09/08/2018 PULMONARY PROGRESS NOTE REFERRING PHYSICIAN: Nitin Keys MD SUBJECTIVE: The patient is seen sitting up in bed, in no acute distress. No overnight events reported. The patient reported that he ambulated to the bathroom this afternoon and became short of breath. At this time, he is feeling okay. No headache, rhinitis, cough, shortness of breath, chest pain, abdominal pain, nausea, vomiting, diarrhea, leg pain, or leg swelling reported. PHYSICAL EXAMINATION: GENERAL: No acute distress. VITAL SIGNS: Blood pressure 124/83, pulse 82, temperature 98.8. Oxygen saturation 99.. HEENT: Moist mucous membranes. Crowded airways. NECK: Supple. No JVD. CARDIOVASCULAR: S1 and S2. RESPIRATORY: Few crackles at the bases bilaterally. ABDOMEN: Soft, nontender. No distention. No organomegaly. EXTREMITIES: No bilateral lower extremity edema. NEUROLOGICAL: Awake, alert and verbal. Following commands. MEDICATIONS: Reviewed. Mucomyst 3 mL inhalation twice a day, Brovana 15 mcg inhalation every 12 hours, Zithromax 500 mg daily, Pulmicort 0.5 mg inhalation every 12 hours, clonidine 0.1 mg every 4 hours p.r.n., Protonix 40 mg daily, Zosyn 3.375 g every 8 hours, sodium chloride 0.45% 1000 mL at 100 mL per hour. LABORATORY DATA: Reviewed. WBC 14, RBC 3.17, hemoglobin 8.4, hematocrit 24.7, and platelets 412. Sodium 140, potassium 4.1, chloride 110, carbon dioxide 24, anion gap 10, BUN 16, creatinine 1.7, GFR 49, random glucose 99 and calcium 9.2. ALLISON screen positive. ALLISON titer 1:40. ALLISON pattern speckled. TB negative. Bilateral chest ultrasound showed no effusion by ultrasound evaluation. IMPRESSION AND PLAN: Bilateral infiltrate, weight loss. The patient is currently on antibiotic therapy. TB Gold test negative. ALLISON is positive. Rheumatoid factor still pending. The patient is clinically improved and we believe he is okay for discharge. He will need close followup as outpatient, will need followup CT scan of the chest to assure stability and resolution of infiltrates. Continue his bronchodilators, gastric prophylaxis, sequential compression device to bilateral lower extremities as the patient cannot be on chemical prophylaxis due to current anemia status. Recommend to continue Hematology followup. 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 We recommend the patient have Rheumatology followup as outpatient. Will need followup C-reactive protein, sedimentation rate. We recommend this patient have full pulmonary function test as outpatient. Fall precautions. This patient was seen and examined with Dr. Chang. Discussed assessment and plan as described above. This patient was seen and examined with Antonio Rascon, nurse practitioner. Discussed assessment and plan as described above. Thank you for this consult and we will follow with you. Antonio Rascon APN Joseluis Chang MD JIA
[2018-09-08 21:56] LABS: PH,URINE 5.5 (4.7-8.0); URINE BILIRUBIN NEGATIVE (NEGATIVE); URINE BLOOD NEGATIVE (NEGATIVE); URINE GLUCOSE (UA) NEGATIVE (NEGATIVE); URINE LEUKOCYTE ESTERASE TRACE Leu/uL (NEGATIVE); URINE PROTEIN NEGATIVE mg/dL (<30 mg/dL); URINE UROBILINOGEN 0.2 E.U./dL (<1 E.U./dL)
[2018-09-08 21:57] LABS: URINE APPEARANCE SL CLOUDY (CLEAR); URINE COLOR YELLOW (YELLOW)
[2018-09-08 22:09] LABS: URINE BACTERIA MOD /hpf
--- NOTE | 2018-09-09 05:15 | PN ---
DATE: 09/08/2018 A 63-year-old man with anemia. I performed a bone marrow aspiration biopsy. I reviewed him now, essentially these came back normal. There are no extrinsic cells in terms of leukemia, lymphoma, myeloma, or cancer in the marrow biopsy. Some mild increase in megakaryocytes that could be reactive, but essentially does not explain his weakness and this seems to be an anemia of chronic disease. Does not seem to be myelodysplastic or megaloblastic. So at this point, he is being treated for underlying infection. Rg Brenner MD
[2018-09-09] MEDS: Pantoprazole 40 mg EC Tab PO SCH (05:51)
[2018-09-09 07:07] LABS: MEAN CELL VOLUME 77.1 fl (80.0-105.0); MEAN CORPUSCULAR HEMOGLOBIN 26.9 pg (25.0-35.0); MEAN CORPUSCULAR HGB CONC 34.9 g/dl (31.0-37.0); MEAN PLATELET VOLUME 8.7 fl (7.0-11.0); RBC 2.97 10^6/uL (3.5-6.1); RED CELL DISTRIBUTION WIDTH 22.5 % (11.5-14.5); WHITE BLOOD COUNT 12.3 10^3/uL (4.5-11.0)
[2018-09-09 07:22] VITALS: BP 115/76; PULSE 92; RESP 22; TEMP 97; O2SAT 97
[2018-09-09 07:34] LABS: ALB/GLOB RATIO 0.7 (1.1-1.8); ALBUMIN 3.5 g/dL (3.0-4.8); ALT/SGPT 25 U/L (7-56); AST/SGOT 100 U/L (17-59); BLOOD UREA NITROGEN 15 mg/dL (7-21); CALCIUM 9.1 mg/dL (8.4-10.5); GFR NON-AFRICAN AMERICAN > 60; URIC ACID 4.7 mg/dL (3.5-8.5)
[2018-09-09] MEDS: Arformoterol 15 mcg/2 ml Inh Sol IH SCH (08:01)
[2018-09-09] MEDS: Acetylcysteine 20% Inhal Soln (4ml) INH SCH (08:01)
[2018-09-09] MEDS: Budesonide 0.5 mg/2 ml Inhal Susp UD IH SCH (08:01)
[2018-09-09] MEDS: Azithromycin 500MG/NS 250ml 500 MG/250 ML BAG IVPB SCH (10:29)
[2018-09-09] MEDS ORDERED: Darbepoetin Alfa 100 mcg/ml Inj SC ONE (12:20)
--- NOTE | 2018-09-09 12:37 | PN ---
DATE: 09/09/2018 PULMONARY PROGRESS NOTE REFERRING PHYSICIAN: Nitin Keys MD SUBJECTIVE: The patient is seen sitting up in bed. Reports feeling well today. No acute distress. No overnight events reported. No headache, rhinitis, cough, shortness of breath, chest pain, abdominal pain, nausea, vomiting, diarrhea, leg pain, or leg swelling reported. OBJECTIVE: GENERAL: No acute distress. VITAL SIGNS: Blood pressure 115/76, pulse 92, temperature 97 and oxygen saturation 97% on nasal cannula. HEENT: Moist mucous membranes. Crowded airways. NECK: Supple. No JVD. CARDIOVASCULAR: S1 and S2. RESPIRATORY: Few crackles at the bases bilaterally. ABDOMEN: Soft and nontender. No distention. No organomegaly. EXTREMITIES: No bilateral lower extremity edema. NEUROLOGICAL: Awake, alert and verbal. Following commands. MEDICATIONS: Reviewed. Mucomyst 3 mL inhalation twice a day, Brovana 15 mcg inhalation every 12 hours, Zithromax 500 mg daily, Pulmicort 0.5 mg every 12 hours, clonidine 0.1 mg every 4 hours p.r.n., Protonix 40 mg daily and sodium chloride 0.45% a 1000 mL at 100 mL per hour. LABORATORY DATA: Reviewed. WBC 12.3, RBC 2.95, hemoglobin 8, hematocrit 22.9, and platelets 602. Sodium 141, potassium 4, chloride 110, carbon dioxide 26, anion gap 9, BUN 15, creatinine 1.2, GFR is greater than 60, random glucose 101, uric acid 4.7, calcium 9.1, phosphorous 3.3, magnesium 2.0, total bilirubin 1.1, AST 100, ALT 25, alkaline phosphatase 83, total protein 8.6, albumin 3.5, globulin 5.1 and albumin-globulin ratio 0.7. Urinalysis shows urine leukocyte esterase trace urine WBC 5 to 10 and urine epithelial cells 6 to 8. IMPRESSION AND PLAN: Bilateral infiltrate associated with weight loss, the patient is currently on antibiotic therapy. Rheumatoid factor is still pending. Recommendation the patient have followup with Rheumatology as outpatient. At this time, the patient is clinically improved he is okay for discharge from pulmonary point of view. He will need close followup as outpatient. We will need repeat CT scan of the chest to assure stability and resolution of infiltrates. Continue inhaled bronchodilators and gastric prophylaxis. Continue sequential compression devices to bilateral lower extremities for deep venous thrombosis prophylaxis as the patient cannot be on chemical prophylaxis due to anemia status. Needs continued Hematology followup. Discussed case with nursing staff today and informed her that the patient needs followup with social work coordinator to ensure that patient is safe for discharge at home as he is home by himself. The patient will need followup C-reactive protein and sedimentation rate as outpatient. Recommend he have full pulmonary function test as outpatient. Fall precautions. Antibiotics as per Infectious Disease. This patient was seen and examined with Dr. Chang. Discussed assessment and plan as described above. This patient was seen and examined with Antonio Rascon, nurse practitioner. Discussed assessment and plan as described above. Thank you for this consult and we will follow with you. Antonio Rascon APN Joseluis Chang MD JIA
--- NOTE | 2018-09-09 16:36 | CP.PCM.PN ---
Subjective - Date & Time of Evaluation Date of Evaluation: 09/09/18 Time of Evaluation: 15:30 - Subjective Subjective: Infectious Disease Follow Up: September 09, 2018 63 yo AA male with initial presentation for left sided stabbing chest pain while shopping the day prior to admission. The patient has a PMHx of Glaucoma and Degenerative Arthritis. He is on medical disability for a right leg injury that occurred at work several years ago. ID called for fevers up to 102.3 F in the past 24 hours. The patient had clear Chest X-rays, unremarkable urinalysis, and mild-mod leukocytosis. Bush cultures taken when fever up to 102.3 F. Occassional spikes of fever throughout the day yesterday and borderline temperatures today. Cultures negative so far at 48 hours. Patient is denying complaints. Abdominal X-ray showing moderate constipation. MRCP was done... strangely enough, incidental findings/signs of a bilateral pneumonia seen on the MRCP. Patient without fever for the last 4 days. A urine culture is showing <10,000 growth of gram positive cocci. No specific cause for the fevers found as of yet. Patient had complaints of cough and some sputum production. No specific new complaints. Temperature of 98.6 F today. WBC is 15.1. Hemoglobin has remained around 8.5- 8.9 the last few days. Patient with no complaints. Noted that patient had bone marrow biopsy two days ago. Chest X-ray noted. No additional issues. Procalcitonin showing a value of 0.13 which is lower than the initial 0.41 from 08/28/2018. The low procalcitonin value would argue against worsening of the previously seen pneumonia (on the MRCP) and argue for improvement. No leukocytosis. CRP is high at 61. ESR is 139. Mycoplasma Pneumonia of IgM negative. WBC down to 14.0. Repeat Chest X-ray showing no changes. HIV negative. ALLISON positive at 1:40 speckled. Patient would like to go home at this point. Objective - Vital Signs/Intake and Output Vital Signs (last 24 hours): Temp Pulse Resp BP Pulse Ox 97 F L 92 H 22 115/76 97 09/09/18 06:00 09/09/18 06:00 09/09/18 06:00 09/09/18 06:00 09/09/18 06:00 Intake and Output: 09/09/18 09/09/18 06:59 18:59 Intake Total 660 Output Total 1600 Balance -940 - Medications Medications: Current Medications Acetylcysteine (Acetylcysteine 20%) 3 ml INH BIDRESP [facility] Last Admin: 09/09/18 08:01 Dose: 1 ml Arformoterol Tartrate (Brovana) 15 mcg IH [id number] [facility] Last Admin: 09/09/18 08:01 Dose: 15 mcg Budesonide (Pulmicort Respules) 0.5 mg IH [id number] [facility] Last Admin: 09/09/18 08:01 Dose: 0.5 mg Clonidine HCl (Catapres) 0.1 mg PO Q4 PRN PRN Reason: NEEDED FORSBP>160OR DBP>100 Pantoprazole Sodium (Protonix Ec Tab) 40 mg PO 0600 [facility] Last Admin: 09/09/18 05:51 Dose: 40 mg - Labs Labs: 09/09/18 06:40 09/09/18 06:40 PT 15.1 SECONDS (9.4-12.5) H 09/02/18 06:30 INR 1.34 09/02/18 06:30 APTT 35.2 Seconds (26.9-38.3) 08/22/18 22:30 - Constitutional Appears: Non-toxic, No Acute Distress, Chronically Ill - Head Exam Head Exam: ATRAUMATIC, NORMOCEPHALIC - Eye Exam Eye Exam: EOMI, PERRL Pupil Exam: NORMAL ACCOMODATION, PERRL - ENT Exam ENT Exam: Mucous Membranes Moist, Normal External Ear Exam, TM's Normal Bilaterally - Neck Exam Neck Exam: Full ROM, Normal Inspection - Respiratory Exam Respiratory Exam: Clear to Ausculation Bilateral, NORMAL BREATHING PATTERN. absent: Rales, Rhonchi, Wheezes - Cardiovascular Exam Cardiovascular Exam: REGULAR RHYTHM, RRR, +S1, +S2 - GI/Abdominal Exam GI & Abdominal Exam: Soft, Normal Bowel Sounds. absent: Distended, Tenderness - Extremities Exam Extremities Exam: Full ROM, Normal Inspection - Neurological Exam Neurological Exam: Alert, Awake, CN II-XII Intact, Oriented x3 - Psychiatric Exam Psychiatric exam: Normal Affect, Normal Mood - Skin Skin Exam: Intact, Normal Color Assessment and Plan - Assessment and Plan (Free Text) Assessment: 63 yo AA male with presentation for fevers up to 102.3 F in the past 24 hours when ID intially consulted where the patient initially presented to [facility] for unstable angina. Urinalysis not indicative for UTI. Chest X-rays negative. Some renal insufficiency. Bilirubin counts are elevated but has had similar values in two distant hospitalizations. LDH elevated. Leukocytosis. Influenza testing negative. Mycoplasma IgM negative. Bush cultures negative. Monitor temperature trend. Patient denying any additional complaints at this time. Obtain abdominal X-ray. Patient without bowel movements for the past 2 days. Abdomen distended. Abdominal X-ray showing moderate constipation. Cultures negative at 48 hours so far. Continue Rocephin for now. MRCP incidentally found bilateral pneumonia. Afebrile for the past 48 hours today. Patient cough and sputum production resolved. On IV Vancomycin and Zosyn. Treatment for pneumonia based on incidental findings from MRCP. Temperature of 98.6 F. Afebrile the past 7 days. Did note temperature up to 100.3 and 100.2 two nights ago. If patient remains afebrile, was originally considering a switch to oral Clindamycin 300mg PO q8hrs and Omnicef 300mg BID for 7-10 days more but the patient remained in the hospital on IV antibiotics for nearing this time... he will not need additional antibiotics on discharge at this point. No additional issues at this time. Bone marrow biopsy done on 09/01/2018. Noted pulmonary evaluation. Leukocytosis with mild elevation. Procalcitonin of 0.41 on 08/28/2018 and now 0.13 on 09/04/2018. Noted elevation of ESR of 139 and CRP of 61.10. Mycoplasma negative. Repeat CT chest to check for improvement or worsening. Monitor leukocytosis. On Zosyn and Azithromycin. HIV pending. Need confirmation on supposed weight loss as prior weight loss as the records in [facility] show weights between 170 to 180 lbs since 2015. Repeat CBC. WBC did improve to 14.0. Hgb remains at 8.4. High imflammatory markers. HIV negative. ALLSION positive with 1:40 ratio and speckled morphology. At this time, the patient is nearly completed with IV antibiotics and will not need further oral antibiotics when medical cleared for discharge. From an ID perspective, the patient is clear for discharge for ID issues. Thank you for allowing me to participate in the care of the patient, we will follow with you.
[2018-09-13 01:07] LABS: ANCA SCREEN NEGATIVE (NEGATIVE)
== END 2018-09-09 18:33 | disposition home or self-care (01) | DRG 311 ==
LOC: ED 21:47 → ERH 23:45 → 2RNO 08-23 00:55 → OBSVTOIN 08-24 09:58 → 5RNO 09-01 16:15
PROVIDERS: ADMIT Internal Medicine; ATTEND Internal Medicine Nephrology
PROC: 07DR3ZX Extraction of Iliac Bone Marrow, Percutaneous Approach, Diagnostic (ICD-10-PCS; principal; 2018-09-01)
PROC: BB4BZZZ Ultrasonography of Pleura (ICD-10-PCS; 2018-09-07)
DX: I20.0 Unstable angina (principal); J18.9 Pneumonia, unspecified organism; J90 Pleural effusion, not elsewhere classified; N17.9 Acute kidney failure, unspecified; R50.9 Fever, unspecified; D50.9 Iron deficiency anemia, unspecified; D63.8 Anemia in other chronic diseases classified elsewhere; D72.829 Elevated white blood cell count, unspecified; K59.00 Constipation, unspecified; E80.4 Gilbert syndrome; I10 Essential (primary) hypertension; E87.6 Hypokalemia; D72.821 Monocytosis (symptomatic); R76.8 Other specified abnormal immunological findings in serum; K21.9 Gastro-esophageal reflux disease without esophagitis; H40.9 Unspecified glaucoma; M19.90 Unspecified osteoarthritis, unspecified site; Z79.82 Long term (current) use of aspirin; Z87.11 Personal history of peptic ulcer disease; Z87.891 Personal history of nicotine dependence